=== PATIENT | female | born 1945 | race Caucasian/White ===

== ENCOUNTER 2019-12-21 13:18 | Emergency (ER) | payer MEDICARE, SELFPAY ==
[2019-12-21 13:36] VITALS: BP 130/80; PULSE 70; RESP 18; TEMP 36.6; O2SAT 96
[2019-12-21] MEDS: TETANUS,DIPHTHERIA,AC PERTUSSIS ADULT 0.5 ML (ADACEL) IM (13:52)
--- NOTE | 2019-12-21 13:56 | ED.WOUNDLAC ---
HPI - Wound/Laceration General Chief Complaint: Wound/Laceration Stated Complaint: Cut finger Source: patient Mode of arrival: ambulatory Limitations: no limitations History of Present Illness HPI narrative: well approximated a laceration this 74-year-old female that occurred at home on the patent of her 3rd left finger approximately 2cm in length mildly gaping and well-approximated patient is on aspirin and has trickling of blood from the left 3rd finger. Onset (ago): hour(s) Extremity Location: Left: hand (pad of 3rd finger lac) Place: home Patient tetanus UTD: No Context: accidental Associated symptoms: none Related Data Home Medications Medication Instructions Recorded Confirmed Unable to Obtain Home Medications 12/21/19 12/21/19 Allergies Allergy/AdvReac Type Severity Reaction Status Date / Time codeine AdvReac Nausea Verified 12/21/19 13:42 Review of Systems Review of Systems: All systems reviewed & are unremarkable except as noted in HPI and below PMFSH Past Medical History Medical History HTN (hypertension) Exam Const: General: no acute distress and alert Orientation/consciousness: patient oriented x3 HENMT: Head: normal to inspection Eyes: Conjunctivae: conjunctivae normal Pupils: Equal, round and reactive pupils present Neck: Neck: normal visual inspection Chest: Chest palpation & inspection: normal inspection of the chest Resp: Effort & Inspection: normal respiratory effort Auscultation: clear to auscultation bilaterally Cardio: Rate: regular rate Rhythm: regular rhythm GI: GI Palp: Yes Soft to palpation Skin: Other: 2Cm laceration to the pad of the left 3rd finger well-approximated Neuro: General: patient oriented x3, moves all extremities, no meningeal signs and no focal motor deficits Extrem: General: normal to inspection Psych: Mental Status: mental status grossly normal Course Vital Signs Vital signs: Vital Signs Temperature 36.6 C 12/21/19 13:36 Pulse Rate 70 12/21/19 13:36 Respiratory Rate 18 12/21/19 13:36 Blood Pressure 130/80 12/21/19 13:36 Pulse Oximetry 96 12/21/19 13:36 Temperature 36.6 C 12/21/19 13:36 Pulse Rate 70 12/21/19 13:36 Respiratory Rate 18 12/21/19 13:36 Blood Pressure 130/80 12/21/19 13:36 Pulse Oximetry 96 12/21/19 13:36 Procedures Laceration Laceration 1: Date: 12/21/19 Time: 14:00 Site: other ( finger) Side (If applicable): left Size (cm): 2 Description: linear ====== Skin Level ====== Skin layer closed with: dermabond ====== Subcutaneous Layer ====== ====== Muscle Layer ====== ====== Tendon Layer ====== Critical Care Time Critical Care Time Critical Care Time: No Discharge Plan Discharge Clinical Impression: Laceration Patient Disposition: Home, Self-Care Condition: Stable Instructions: Antibiotic Form, Laceration (ED), Skin Adhesive Care (ED) Additional Instructions: follow-up with primary care physician if symptoms persist or worsen. Prescriptions: No Action Unable to Obtain Home Medications RF: 0 Follow-up/Referrals: Jacky,MD Wilson [Primary Care Provider] - Time of Disposition: 14:02
== END 2019-12-21 14:20 | disposition home or self-care (01) ==
PROVIDERS: Emergency Provider Emergency Medicine; PCP Internal Medicine Infectious Disease
DX: S61.213A Laceration without foreign body of left middle finger without damage to nail, initial encounter (principal); I10 Essential (primary) hypertension; W45.8XXA Other foreign body or object entering through skin, initial encounter
CPT/HCPCS: 12001; 90471; 90715; 99282

== ENCOUNTER 2021-06-15 15:05 | Emergency (ER) | payer MEDICARE, SELFPAY ==
[2021-06-15] VITALS (7 sets, daily range): BP systolic 125–156; BP diastolic 78–110; PULSE 78–97; RESP 18–20; TEMP 36.7–36.9; O2SAT 93–97
--- NOTE | ~2021-06-15 | XR_ITS ---
EXAMINATION: XR chest 1V portable INDICATION: Cough and shortness of breath TECHNIQUE: Portable AP chest at 1629 hours COMPARISON: None available FINDINGS: The lungs are free of acute opacities. There is no pleural effusion or pneumothorax. The ca rdiomediastinal silhouette is normal. IMPRESSION: 1. No acute cardiopulmonary abnormality. Reviewed, dictated and finalized at location A.
--- NOTE | 2021-06-15 15:53 | ECG_ITS ---
Measurements Intervals [place] Rate: 85 P: DE: 0 QRS: 41 QRSD: 90 T: 59 QT: 400 QTc: 476 Interpretive Statements SINUS WITH INTERMITTENT ECTOPIC ATRIAL RHYTHM DELAYED PRECORDIAL R/S TRANSITION BORDERLINE T WAVE ABNORMALITY- ANTERIOR LEADS BASELINE ARTIFACT- II, AVL, AVF ABNORMAL ECG Electronically Signed On 06-15-2021 19:58:36 CDT by Troy Gary D.O.
--- NOTE | 2021-06-15 15:57 | ED.GENADULT ---
HPI - General Adult General Chief complaint: Weakness Stated complaint: headaches,diarrhea,cough,irregular heart rate Source: patient and family Mode of arrival: ambulatory Limitations: no limitations History of Present Illness HPI narrative: Sandie is a 75F with a PMH of HTN, DMII, HLD, and GERD that presented to the ED feeling weak. She started having weakness 5 days ago along with a cough. A few days ago she started having an ache in her left arm. Her symptoms have become progressively worse and today she had an episode of near syncope and nausea. She had no vomiting, CP or syncope. She denies abdominal pain, dysuria and hematuria. She has had a few episodes of watery diarrhea but no blood or melena. She is taking care of a baby with respiratory flu before these symptoms started. Related Data Home Medications Medication Instructions Recorded Confirmed duloxetine 60 mg PO DAILY 06/15/21 06/15/21 empagliflozin [Jardiance] 10 mg PO DAILY 06/15/21 06/15/21 metformin 1,000 mg PO DAILY 06/15/21 06/15/21 metoprolol tartrate 50 mg PO DAILY 06/15/21 06/15/21 omeprazole 20 mg PO DAILY 06/15/21 06/15/21 simvastatin 20 mg PO DAILY 06/15/21 06/15/21 triamterene-hydrochlorothiazid 37.5 tablet PO DAILY 06/15/21 06/15/21 Allergies Allergy/AdvReac Type Severity Reaction Status Date / Time codeine AdvReac Nausea Verified 06/15/21 15:43 Review of Systems Constitutional: Constitutional: Reports fatigue and Reports weakness Eyes: Eyes: Reports no additional eye complaints ENT: Reports system reviewed and no additional complaints, except as documented Cardiovascular: Cardiovascular: Denies chest pain, Denies rapid heart rate, Denies radiating jaw, neck or arm pain and Denies slow heart rate Respiratory: Respiratory: Reports cough Gastrointestinal: Gastrointestinal: Reports as per HPI Genitourinary: Genitourinary: Reports no additional female genitourinary complaints Musculoskeletal: Musculoskeletal: Reports no additional musculoskeletal complaints Integumentary/Breasts: Skin/Breast: Reports system reviewed and no additional complaints, except as docu Neurologic: Reports system reviewed and no additional complaints, except as documented Psychiatric: Psychiatric: Reports no additional psychiatric complaints Endocrine: Endocrine: Reports no additional endocrine complaints Hematologic/Lymphatic: Hematologic/Lymphatic: Reports no additional hematologic/lymphatic complaints Allergic/Immunologic: Allergic/Immunologic: Reports no additional allergic/immunologic complaints [facility] Past Medical History Medical History (Updated 06/15/21 @ 18:11 by Background Daemon) HTN (hypertension) Exam Const: General: no acute distress and alert Orientation/consciousness: patient oriented x3 Limitations: No altered mental status HENMT: Head: normal to inspection Other: atraumatic, normocephalic Eyes: Conjunctivae: conjunctivae normal Pupils: Equal, round and reactive pupils present Neck: Neck: normal visual inspection Chest: Chest palpation & inspection: normal inspection of the chest Resp: Effort & Inspection: normal respiratory effort, not labored, not tachypneic and no use of accessory muscles Other: Slight bibasilar crackles Cardio: Rate: regular rate Rhythm: regular rhythm GI: Inspection: non-distended GI Palp: Yes Soft to palpation, No Tenderness to palpation present (GI) and No Guarding due to palpation present (GI) : General: Yes no CVA tenderness Skin: General skin exam: normal color Rashes: no rashes Neuro: General: patient oriented x3 and moves all extremities Extrem: General: normal to inspection Psych: Appearance: grossly normal Mental Status: mental status grossly normal Affect: normal affect Thought content: Yes Normal thought content present Course Course Emergency Course: Ordered labs, EKG, CXR and orthostatics. Labs were largely unremarkable except an elevated TSH. EKG showed Afib with
[2021-06-15 16:03] LABS: Add Urine Microscopic? YES; Appearance Urine Clear (Clear); Bilirubin Urine Negative (Negative); Blood Urine Negative (Negative); Color Urine Light Yellow (Yellow); Glucose Urine UA 3+ (Negative); Ketones Urine Trace (Negative); Leukocyte Esterase Ur Negative (Negative); Nitrate Urine Negative (Negative); Protein Urine Negative (Negative); Specific Grav Ur 1.025 (1.010-1.020); Urobilinogen Urine 0.2 mg/dL (0.2-1.0); pH Urine 5.5 (5.0-8.0)
[2021-06-15 16:11] LABS: RBC Urine None seen /hpf (0-2); WBC Urine None seen /hpf (0-3)
[2021-06-15 16:12] LABS: Bacteria Urine Trace /hpf; Squamous Epithelial Cell Urine Few /hpf (Few)
[2021-06-15 16:27] LABS: Amphetamine Screen Urine Negative (Negative); Barbiturate Screen Urine Negative (Negative); Benzodiazepines Screen Urine Negative (Negative); Cannabinoid Screen Urine Negative (Negative); Cocaine Screen Urine Negative (Negative); Methadone Screen Urine Negative (Negative); Opiate Screen Urine Negative (Negative); Phencyclidine Screen Urine Negative (Negative)
[2021-06-15 16:31] LABS: Basophils Absolute Auto 0.06 K/mm3 (0.00-0.10); Basophils Percent Auto 0.7 % (0.0-1.0); Eosinophils Absolute Auto 0.37 K/mm3 (0.02-0.50); Eosinophils Percent Auto 4.2 % (1.0-6.0); Hematocrit 43.2 % (35.0-42.0); Hemoglobin 13.4 g/dL (11.7-13.8); Immature Granulocyte Absolute 0.02 K/mm3 (0.00-0.00); Immature Granulocyte Percent A 0.2 % (0.0-0.0); Lymphocytes Absolute Auto 3.02 K/mm3 (1.10-4.50); Lymphocytes Percent Auto 34.6 % (18.0-42.0); Mean Corpuscular Hemoglobin 27.4 pg (27.0-31.0); Mean Corpuscular Volume 88.3 fL (78.0-102.0); Mean Platelet Volume 11.3 fl (9.2-11.8); Monocytes Absolute Auto 0.51 K/mm3 (0.10-0.90); Monocytes Percent Auto 5.8 % (2.0-11.0); Neutrophils Absolute Auto 4.7 K/mm3 (1.7-7.2); Neutrophils Percent Auto 54.5 % (50.0-70.0); Platelet Count Result 274 K/mm3 (150-420); Red Blood Count 4.89 M/mm3 (4.20-5.40); White Blood Count 8.7 K/mm3 (4.8-10.8)
[2021-06-15 16:44] LABS: Prothrombin Time 10.9 Seconds (9.50-12.10)
[2021-06-15 16:57] LABS: Alanine Aminotransferase 43 U/L (14-59); Albumin Level 3.7 g/dL (3.4-5.0); Alkaline Phosphatase 73 U/L (46-116); Anion Gap 15 mmol/L (8-16); Aspartate Amino Transferase 32 U/L (15-37); Bilirubin,Total 0.4 mg/dL (0.00-1.00); Blood Urea Nitrogen 17 mg/dL (7-18); Calcium 8.8 mg/dL (8.5-10.1); Carbon Dioxide 24 mmol/L (21-32); Chloride 101 mmol/L (98-108); Creatine Kinase 74 U/L (26-192); Estimated CRCL calculation 50 ml/min; Estimated Glomerular Filt Rate 56; Glucose 216 mg/dL (70-99); NT Pro B Type Natriuretic Pept 112 pg/mL (0-125); Osmolality Calculated 298 mOsm/kg (285-295); Potassium 3.5 mmol/L (3.5-5.1); Sodium 140 mmol/L (136-145); Total Protein 7.7 g/dL (6.4-8.2)
[2021-06-15 17:10] LABS: Influenza A QL RT-PCR Negative (Negative); Influenza B QL RT-PCR Negative (Negative); RSV RNA, RT-PCR Negative (Negative); SARS-CoV-2 RNA PCR Negative (Negative)
[2021-06-15 17:17] LABS: Magnesium 1.8 mg/dL (1.8-2.4); Troponin I < 4.0 ng/L (0.00-60.4)
--- NOTE | 2021-06-15 17:53 | PC.NURSE ---
Floor and admitting notified pt will be admitted.
--- NOTE | 2021-06-15 17:55 | PC.NURSE ---
Phone report given to VINCENZO Lira
--- NOTE | 2021-06-15 18:50 | PC.NURSE ---
Pt noted to be having runs of v-tach lasting longer than 10 beats and occurring more frequently. Pt symptomatic. Discussed with Dr. Rios that pt needs higher level of care due to increased frequency of arrythmia.
[2021-06-15] MEDS: LORazepam INJ (*CRX) 2 MG/ML VIAL 0.5 MG IV PUSH (19:17)
--- NOTE | 2021-06-15 19:23 | PC.NURSE ---
Report given to VINCENZO Cruz
--- NOTE | 2021-06-15 20:04 | PC.NURSE ---
1957 Dr Peña accepted pt at [facility] facesheet and covid test faxed
== END 2021-06-15 21:32 | disposition short-term general hospital (02) ==
LOC: CHSED 15:08 → CHS2ND 18:11
PROVIDERS: Emergency Provider Family Medicine; PCP Internal Medicine Infectious Disease
DX: I47.2 Ventricular tachycardia (principal); I48.91 Unspecified atrial fibrillation; Z20.822 Contact with and (suspected) exposure to COVID-19; I10 Essential (primary) hypertension
CPT/HCPCS: 36415; 71045; 80053; 80307; 81001; 82550; 83735; 83880; 84443; 84484; 85025; 85610; 87502; 93005; 96374; 99284; 99285; C9803; J2060; U0003; U0005

== ENCOUNTER 2022-07-26 04:26 | Emergency (ER) | payer MEDICARE, SELFPAY ==
[2022-07-26 04:30] VITALS: BP 155/87; PULSE 75; RESP 18; TEMP 36.8; O2SAT 94
[2022-07-26] MEDS: methylPREDNISolone SOD SUCC 125 MG VIAL IM (04:40)
[2022-07-26] MEDS: diphenhydrAMINE HCl INJ 50 MG/ML VIAL 25 MG IM (04:41)
[2022-07-26 05:00] VITALS: BP 124/84; PULSE 74; RESP 20; O2SAT 93
--- NOTE | 2022-07-26 05:12 | ED.ALLEREA ---
HPI - Allergic Reaction General Chief complaint: Allergic Reaction Stated complaint: Allergic Reaction Time Seen by Provider: 07/26/22 05:11 Source: patient Mode of arrival: ambulatory History of Present Illness HPI narrative: 76-year-old female with history of hypertension, diabetes mellitus, dyslipidemia presented to the ER with acute onset -- generalized itching without any rash. She was woken up from a sleep with itching. The patient has not taken any new medication. -- Tongue swelling the patient did not have any throat swelling/shortness of breath /abdominal pain. She has a clear speech. She is hemodynamically stable. MD complaint: allergic reaction Onset (ago): minute(s) ( Started 30 minutes ago.) Exposure: unknown Symptoms: itching Severity: mild Treatment prior to arrival: none Previous Allergic Reaction History: none Related Data Home Medications Medication Instructions Recorded Confirmed duloxetine 60 mg capsule,delayed 60 mg PO DAILY 06/15/21 06/15/21 release empagliflozin 10 mg tablet 10 mg PO DAILY 06/15/21 06/15/21 (Jardiance) metformin 1,000 mg tablet 1,000 mg PO DAILY 06/15/21 06/15/21 metoprolol tartrate 50 mg tablet 50 mg PO DAILY 06/15/21 06/15/21 omeprazole 20 mg capsule,delayed 20 mg PO DAILY 06/15/21 06/15/21 release simvastatin 20 mg tablet 20 mg PO DAILY 06/15/21 06/15/21 triamterene 37.5 37.5 tablet PO DAILY 06/15/21 06/15/21 mg-hydrochlorothiazide 25 mg tablet Allergies Allergy/AdvReac Type Severity Reaction Status Date / Time codeine AdvReac Nausea Verified 06/15/21 15:43 Review of Systems Review of Systems: All systems reviewed & are unremarkable except as noted in HPI and below Constitutional: Constitutional: Reports as per HPI and Reports no additional constitutional complaints Eyes: Eyes: Reports as per HPI and Reports no additional eye complaints ENT: Reports system reviewed and no additional complaints, except as documented and Reports as per HPI Cardiovascular: Cardiovascular: Reports as per HPI and Reports no additional cardiovascular complaints Respiratory: Respiratory: Reports as per HPI and Reports no additional respiratory complaints Gastrointestinal: Gastrointestinal: Reports as per HPI and Reports no additional gastrointestinal complaints Genitourinary: Genitourinary: Reports no additional female genitourinary complaints and Reports as per HPI Musculoskeletal: Musculoskeletal: Reports no additional musculoskeletal complaints and Reports as per HPI Integumentary/Breasts: Skin/Breast: Reports system reviewed and no additional complaints, except as docu and Reports as per HPI Neurologic: Reports system reviewed and no additional complaints, except as documented and Reports as per HPI Psychiatric: Psychiatric: Reports no additional psychiatric complaints and Reports as per HPI Endocrine: Endocrine: Reports no additional endocrine complaints and Reports as per HPI Hematologic/Lymphatic: Hematologic/Lymphatic: Reports no additional hematologic/lymphatic complaints and Reports as per HPI Allergic/Immunologic: Allergic/Immunologic: Reports no additional allergic/immunologic complaints, Reports as per HPI and Reports tongue swelling PMFSH Past Medical History Medical History (Updated 07/26/22 @ 05:19 by Ant Zazueta MD) HTN (hypertension) Exam Const: General: healthy appearing and no acute distress Nutritional Appearance: well nourished Orientation/consciousness: patient oriented x3 Limitations: no limitations HENMT: Head: normal to inspection Ears: external ears normal Face/Nose/Sinus: Normal external nose present Face and sinus: normal facial exam Mouth: Yes Normal oral and palatal mucosa present Throat: posterior oropharynx normal Eyes: Conjunctivae: conjunctivae normal Pupils: Equal, round and reactive pupils present EOM: EOMs intact bilaterally Direct Ophthalmoscopy: no photophobia Neck: Neck: normal visual inspection, no
[2022-07-26 05:45] VITALS: BP 117/76; PULSE 74; RESP 20; O2SAT 95
== END 2022-07-26 05:48 | disposition home or self-care (01) ==
LOC: CHSED 05:19
PROVIDERS: Emergency Provider Internal Medicine Critical Care Medicine; PCP Internal Medicine Infectious Disease
DX: T78.40XA Allergy, unspecified, initial encounter (principal); I10 Essential (primary) hypertension; E11.9 Type 2 diabetes mellitus without complications; E78.5 Hyperlipidemia, unspecified
CPT/HCPCS: 96372; 99284; J1200; J2930

== ENCOUNTER 2023-11-01 18:16 | Observation (INO) | payer MEDICARE, SELFPAY ==
[2023-11-01] VITALS (21 sets, daily range): BP systolic 102–152; BP diastolic 58–99; PULSE 82–147; RESP 18–25; TEMP 37.1; O2SAT 93–98
--- NOTE | ~2023-11-01 | CT_ITS ---
EXAMINATION: CTA chest PE protocol DATE: 11/01/2023 19:50 INDICATION: Shortness of breath. TECHNIQUE: Computed tomography angiography (CTA) of the chest was performed with 100 mL Omnipaque-350 intravenous contrast timed to evaluate the pulmonary arteries. Coronal maximum intensity projection 3D-reconstructions were created by the technologist. Automated exposure control and iterative reconst ruction technique were employed. The dose-length product was 787.49 mGy-cm. COMPARISON: Chest single view 11/01/2023 FINDINGS: There is a 3 mm nodule in left upper lobe, likely benign. A calcified right lung nodule and calcified right hilar lymph nodes are consistent with old granulomatous disease. There is mild atele ctasis bilaterally. No pleural effusion. The heart size is normal. There are coronary artery calcific ations. No pericardial effusion. There is no pulmonary embolus. There is severe thoracic spondylosis. IMPRESSION: 1. No pulmonary embolus. Reviewed, dictated and finalized at location E. ATOR SERVICEMAN IMPRESSION: 1. No pulmonary embolus.
--- NOTE | ~2023-11-01 | XR_ITS ---
EXAMINATION: XR chest 1V portable DATE: 11/01/2023 19:01 INDICATION: Shortness of breath. TECHNIQUE: A single frontal view of the chest was obtained. COMPARISON: Chest single view 06/15/2021 FINDINGS: There is no pneumonia, pleural effusion, or pneumothorax. The heart size is normal. IMPRESSION: 1. No acute cardiopulmonary disease. Reviewed, dictated and finalized at location E. IC LAYER
--- NOTE | 2023-11-01 18:19 | ECG_ITS ---
Measurements Intervals [place] Rate: 146 P: IA: 0 QRS: 6 QRSD: 110 T: 16 QT: 291 QTc: 454 Interpretive Statements ATRIAL FLUTTER/TACHYCARDIA WITH RAPID VENTRICULAR RESPONSE NONSPECIFIC ST & T-WAVE ABNORMALITY- LAT/HIGH LAT LEADS BASELINE WANDER- V3-V6 ABNORMAL ECG COMPARED TO ECG 06/15/2021 16:03:15 ATRIAL FLUTTER/TACHYCARDIA NOW PRESENT Electronically Signed On 11-01-2023 18:40:58 HUMAN RESOURCES ASSOCIATE by Troy Gary D.O.
[2023-11-01] MEDS: dilTIAZem HCl INJ 25 MG/5 ML VIAL 10 MG IV PUSH (18:45)
[2023-11-01 18:54] LABS: Basophils Absolute Auto 0.08 K/mm3 (0.00-0.10); Basophils Percent Auto 0.9 % (0.0-1.0); Eosinophils Absolute Auto 0.36 K/mm3 (0.02-0.50); Eosinophils Percent Auto 4.2 % (1.0-6.0); Hematocrit 43.8 % (35.0-42.0); Hemoglobin 12.7 g/dL (11.7-13.8); Immature Granulocyte Absolute 0.02 K/mm3 (0.00-0.00); Immature Granulocyte Percent A 0.2 % (0.0-0.0); Lymphocytes Absolute Auto 3.01 K/mm3 (1.10-4.50); Lymphocytes Percent Auto 34.8 % (18.0-42.0); Mean Corpuscular Volume 82.8 fL (78.0-102.0); Mean Platelet Volume 11.2 fl (9.2-11.8); Monocytes Absolute Auto 0.56 K/mm3 (0.10-0.90); Monocytes Percent Auto 6.5 % (2.0-11.0); Neutrophils Absolute Auto 4.6 K/mm3 (1.7-7.2); Neutrophils Percent Auto 53.4 % (50.0-70.0); Platelet Count Result 274 K/mm3 (150-420); Red Blood Count 5.29 M/mm3 (4.20-5.40); Red Cell Distribution Width 18.4 % (11.6-14.4); White Blood Count 8.7 K/mm3 (4.8-10.8)
[2023-11-01 19:08] LABS: Appearance Urine Clear (Clear); Bilirubin Urine Negative (Negative); Blood Urine Negative (Negative); Color Urine Light Yellow (Yellow); Glucose Urine UA 3+ (Negative); Ketones Urine Trace (Negative); Leukocyte Esterase Ur Negative LEU/UL (Negative); Nitrate Urine Negative (Negative); Protein Urine Negative (Negative); Urobilinogen Urine 0.2 mg/dL (0.2-1.0)
--- NOTE | 2023-11-01 19:08 | PC.NURSE ---
1908: Assumed care of pt. Pt ambulatory to restroom with steady gait. Urine obtained and sent to lab. Updated pt/family. Family at bedside.
[2023-11-01 19:09] LABS: INR 0.9; Partial Thromboplastin Time 25.9 SEC (23.90-30.70); Prothrombin Time 10.3 Seconds (9.50-12.10)
[2023-11-01 19:10] LABS: D Dimer 0.82 mg/L (0.19-0.50)
[2023-11-01 19:15] LABS: Add Urine Microscopic? YES; RBC Urine 0-2 /hpf (0-2); Squamous Epithelial Cell Urine None seen /hpf (Few); WBC Urine 0-3 /hpf (0-3)
[2023-11-01 19:16] LABS: Bacteria Urine None seen /hpf
[2023-11-01 19:18] LABS: Lactic Acid Reflex 5.2 mmol/L (0.4-2.0)
[2023-11-01 19:19] LABS: Alanine Aminotransferase 66 U/L (14-59); Albumin Level 3.8 g/dL (3.4-5.0); Alkaline Phosphatase 86 U/L (46-116); Anion Gap 16 mmol/L (8-16); Aspartate Amino Transferase 48 U/L (15-37); Bilirubin,Total 0.3 mg/dL (0.00-1.00); Blood Urea Nitrogen 12 mg/dL (7-18); CRP 0.5 mg/dL (0.0-0.9); Calcium 8.8 mg/dL (8.5-10.1); Carbon Dioxide 22 mmol/L (21-32); Chloride 102 mmol/L (98-108); Estimated CRCL calculation 52 ml/min; Estimated Glomerular Filt Rate 59; Glucose 311 mg/dL (70-99); Magnesium 1.9 mg/dL (1.8-2.4); NT Pro B Type Natriuretic Pept 182 pg/mL (0-450); Osmolality Calculated 301 mOsm/kg (285-295); Potassium 3.8 mmol/L (3.5-5.1); Sodium 140 mmol/L (136-145); Total Protein 7.7 g/dL (6.4-8.2); Troponin I 5.3 ng/L (0.00-60.4)
[2023-11-01] MEDS: SODIUM CHLORIDE 0.9% IV 1,000 ML 999 ML IV CONT (19:49)
[2023-11-01 19:50] LABS: Thyroid Stimulating Hormone 1.61 uIU/mL (0.36-3.74)
[2023-11-01] MEDS: dilTIAZem 100 MG/100 ML 100 MG/100 ML BAG IV CONT (19:50)
--- NOTE | 2023-11-01 19:58 | ED.GENADULT ---
HPI - General Adult General Chief complaint: Chest Pain Stated complaint: rapid heart rate Time Seen by Provider: 11/01/23 18:23 Source: patient Mode of arrival: ambulatory Limitations: no limitations History of Present Illness HPI narrative: This is a 78 year female that presents with palpitations, had noticed that she had increased heart rate this started earlier this afternoon patient has mild dyspnea with no chest pain no chest pressure no abdominal pain no fever chills. Initially heart rate was in the 140s, there is no nausea vomiting no diarrhea constipation no dysuria or flank pain. Patient has history of diabetes, hypertension hyperlipidemia and patient states that her diabetes has been relatively well controlled with an A1c of 7.2. Onset (ago): hour(s) Severity: moderate Related Data Home Medications Medication Instructions Recorded Confirmed duloxetine 60 mg capsule,delayed 60 mg PO DAILY 06/15/21 11/01/23 release empagliflozin 10 mg tablet 10 mg PO DAILY 06/15/21 11/01/23 (Jardiance) metformin 1,000 mg tablet 1,000 mg PO DAILY 06/15/21 11/01/23 metoprolol tartrate 50 mg tablet 50 mg PO DAILY 06/15/21 11/01/23 omeprazole 20 mg capsule,delayed 20 mg PO DAILY 06/15/21 11/01/23 release simvastatin 20 mg tablet 20 mg PO DAILY 06/15/21 11/01/23 triamterene 37.5 37.5 tablet PO DAILY 06/15/21 11/01/23 mg-hydrochlorothiazide 25 mg tablet Allergies Allergy/AdvReac Type Severity Reaction Status Date / Time codeine AdvReac Nausea Verified 11/01/23 19:01 Review of Systems Review of Systems: All systems reviewed & are unremarkable except as noted in HPI and below PMFSH Past Medical History Medical History (Updated 11/02/23 @ 02:23 by Dionicio Finley MD) HTN (hypertension) Exam Const: General: healthy appearing and no acute distress Nutritional Appearance: well nourished and obese Orientation/consciousness: patient oriented x3 Limitations: no limitations HENMT: Head: normal to inspection Eyes: Conjunctivae: conjunctivae normal Neck: Neck: normal visual inspection, no lymphadenopathy and no meningeal signs Chest: Chest palpation & inspection: normal inspection of the chest Resp: Effort & Inspection: normal respiratory effort Auscultation: clear to auscultation bilaterally Cardio: Rate: tachycardic Rhythm: abnormal rhythm GI: GI Palp: Yes Soft to palpation Auscultation: normal bowel sounds : General: Yes bladder normal to palpation Back/Spine/Pelvis: Back: no CVA tenderness Skin: General skin exam: normal color Rashes: no rashes Wounds: no wounds Neuro: General: patient oriented x3, moves all extremities, no meningeal signs and no focal motor deficits Psych: Mental Status: mental status grossly normal Affect: normal affect Course Course Emergency Course: Patient with a history of diabetes hypertension hyperlipidemia presents with tachycardia and did receive a bolus of Cardizem and currently on Cardizem drip which has caused her heart rate to improve blood pressure stable patient had elevated D-dimer and CTA was performed which showed no acute pulmonary embolism. Labs performed showed that white count is 8.7 with an H&H of 12 and 43 CMP was within normal limits except for glucose was 311 AST ALT of 48 and 66 respectively with a lactic acid of 5.2 chest x-ray shows no acute cardiopulmonary abnormalities EKG was performed and reviewed which showed a flutter rate of 145 when patient 1st presented. Patient also received a bolus of normal saline and her BNP was within normal range. patient did well cardioverted and current heart rate is 68 to 72 obtain another EKG which shows normal sinus rhythm will admit to start on hospital floor to hospitalist to monitor and when stable can discharge with outpatient cardiology referral. Vital Signs Vital signs: Vital Signs Temperature 37.1 C 11/01/23 18:20 Pulse Rate 147 H 11/01/23 18:20 Respiratory Rate 25 H 11/01/23 18:20 Bl
[2023-11-01 21:56] LABS: Reflex Lactic Acid Yes or No Add Lactic
[2023-11-01 22:33] LABS: Lactic Acid 3.4 mmol/L (0.4-2.0)
[2023-11-02] VITALS (14 sets, daily range): BP systolic 105–122; BP diastolic 54–77; PULSE 66–93; RESP 16–20; TEMP 36.1–37.1; O2SAT 93–96; BMI 41.0
--- NOTE | 2023-11-02 01:24 | ECG_ITS ---
Measurements Intervals [place] Rate: 70 P: -35 WI: 178 QRS: 2 QRSD: 83 T: 44 QT: 397 QTc: 430 Interpretive Statements SINUS RHYTHM ATRIAL PREMATURE COMPLEX BASELINE WANDER- V2 BORDERLINE ECG COMPARED TO ECG 11/01/2023 18:28:01 SINUS RHYTHM NOW PRESENT Electronically Signed On 11-02-2023 6:41:50 PHARMACIST HELPER by Troy Gary D.O.
--- NOTE | 2023-11-02 01:55 | PC.NURSE ---
Verbal orders from Dr. Finley to stop diltiazem drip and give a one time dose of 120mg diltiazem PO now
[2023-11-02] MEDS: dilTIAZem HCL 30 MG TABLET 120 MG PO (02:17)
--- NOTE | 2023-11-02 03:18 | ADMGEN ---
This patient, Sandie Roche, was admitted to 2nd Floor Room 204-2. Patient oriented to hospital policies and general routines including ID bracelet, bed and alarms, visiting hours, pain management, procedures, bathroom and other care routines, personal items, smoking policy, room service/diet, and visiting hours. Information on how to activate the Rapid Response Team has been discussed. Patient encouraged to report perceived risks to care and to ask questions if they do not understand what they are told or what they should do.
--- NOTE | 2023-11-02 03:48 | PC.NURSE ---
Pt states she sees Public Opinion Survey Taker Dr. Sanchez at [facility].
[2023-11-02] MEDS: SODIUM CHLORIDE 0.9% IV 1,000 ML 100 ML IV CONT (05:17)
[2023-11-02 05:26] LABS: Basophils Absolute Auto 0.06 K/mm3 (0.00-0.10); Basophils Percent Auto 0.7 % (0.0-1.0); Eosinophils Absolute Auto 0.34 K/mm3 (0.02-0.50); Eosinophils Percent Auto 3.9 % (1.0-6.0); Hematocrit 39.5 % (35.0-42.0); Hemoglobin 11.2 g/dL (11.7-13.8); Immature Granulocyte Absolute 0.03 K/mm3 (0.00-0.00); Immature Granulocyte Percent A 0.3 % (0.0-0.0); Lymphocytes Absolute Auto 3.71 K/mm3 (1.10-4.50); Lymphocytes Percent Auto 42.3 % (18.0-42.0); Mean Corpuscular HGB Conc 28.4 g/dL (32.0-36.0); Mean Corpuscular Hemoglobin 23.7 pg (27.0-31.0); Mean Corpuscular Volume 83.5 fL (78.0-102.0); Mean Platelet Volume 10.8 fl (9.2-11.8); Monocytes Absolute Auto 0.68 K/mm3 (0.10-0.90); Monocytes Percent Auto 7.7 % (2.0-11.0); Neutrophils Percent Auto 45.1 % (50.0-70.0); Platelet Count Result 232 K/mm3 (150-420); Red Blood Count 4.73 M/mm3 (4.20-5.40); White Blood Count 8.8 K/mm3 (4.8-10.8)
[2023-11-02 05:50] LABS: Lactic Acid Reflex 3.2 mmol/L (0.4-2.0)
[2023-11-02 05:54] LABS: Alanine Aminotransferase 50 U/L (14-59); Albumin Level 3.3 g/dL (3.4-5.0); Alkaline Phosphatase 71 U/L (46-116); Anion Gap 10 mmol/L (8-16); Aspartate Amino Transferase 33 U/L (15-37); Bilirubin,Total 0.4 mg/dL (0.00-1.00); Blood Urea Nitrogen 9 mg/dL (7-18); Calcium 8.4 mg/dL (8.5-10.1); Carbon Dioxide 27 mmol/L (21-32); Chloride 105 mmol/L (98-108); Estimated CRCL calculation 58 ml/min; Estimated Glomerular Filt Rate > 60; Glucose 192 mg/dL (70-99); NT Pro B Type Natriuretic Pept 549 pg/mL (0-450); Osmolality Calculated 297 mOsm/kg (285-295); Potassium 3.9 mmol/L (3.5-5.1); Sodium 142 mmol/L (136-145); Total Protein 6.9 g/dL (6.4-8.2); Troponin I 19.8 ng/L (0.00-60.4)
--- NOTE | 2023-11-02 06:45 | PM.SD2 ---
Same Day Admit/Disch: HPI History of Present Illness Chief complaint: A FLUTTER WITH RVR Narrative: Sandie Roche is a 78 year old female with a past medical history of hypertension, diabetes, dyslipidemia who presented to the ER overnight with complaints of heart palpitations and mild dyspnea. When she presented her heart rate was in the 140s and EKG showed atrial flutter. She received a bolus with Cardizem and started on a drip. She also received some IV fluids. While in the ER she converted back to normal sinus rhythm heart rate in the 60s. Her Cardizem drip was stopped and she was given a dose of oral diltiazem. She was admitted to the floor overnight by the ER physician on telemetry for further monitoring. This morning she remains sinus rhythm heart rate in the 60s. Her blood pressures are stable. She had lactic of 5.2 initially in the ER which has since come down to 3.2 after IV fluid hydration. She reports that she had a headache this morning but that seems to have gone away now that she is eating. She denies headache, dizziness, chest pain, shortness a breath, abdominal pain, nausea, vomiting. She is independent with ambulation. She sees a computer lab assistant at [place], Dr. Sanchez whom I have asked her to follow up with. She also reports that she has a 1:00 a.m. appointment today with her primary care doctor which I have asked her to attend. I will discharge her home with oral diltiazem. [facility] Past Medical History Medical History HTN (hypertension) Social History Social History Smoking status: Never smoker Second hand tobacco smoke exposure: No Alcohol intake: never Substance use: never Substance use type: does not use Do You Feel Safe in your Home?: Yes Lack of Transportation: No Lack of Food: Never True Current Housing: I Have Housing Concerned About Future Housing: No Difficulty Paying Gas/Electric Bills: No Difficulty Paying for Meds: No Currently Unemployed: No Education: Trade/Vocational Certificate Difficulty w/ Childcare or Family Care: No Spiritual care concerns: No Same Day Admit/Disch: Med Pre-admit Medications Home Medications Medication Instructions Recorded Confirmed Type duloxetine 60 mg capsule,delayed 60 mg PO DAILY 06/15/21 11/01/23 History release empagliflozin 10 mg tablet 10 mg PO DAILY 06/15/21 11/01/23 History (Jardiance) metformin 1,000 mg tablet 1,000 mg PO DAILY 06/15/21 11/01/23 History metoprolol tartrate 50 mg tablet 50 mg PO DAILY 06/15/21 11/01/23 History omeprazole 20 mg capsule,delayed 20 mg PO DAILY 06/15/21 11/01/23 History release simvastatin 20 mg tablet 20 mg PO DAILY 06/15/21 11/01/23 History triamterene 37.5 37.5 tablet PO DAILY 06/15/21 11/01/23 History mg-hydrochlorothiazide 25 mg tablet Review of Systems Review of Systems All systems reviewed & are unremarkable except as noted in HPI and below Exam Narrative: General: well appearing, well developed, well nourished, appears stated age. HEENT: normocephalic, atraumatic. Mucous membranes moist. EOMI, PERRLA, bilateral sclera anicteric, no conjunctival injection. Neck supple without JVD, lymphadenopathy, or bruit. Respiratory: clear to ascultation bilaterally. No rales/rhonic/wheezes. Cardiovascular: Regular rate and rhythm, normal S1-S2 upon ascultation. No murmurs, rubs, or clicks. PMI is nondisplaced, capillary re-fill less than 3 second. Abdomen: Soft, round, no pulsatile masses, non-distended and non-tender. No rebound, no guarding. No CVA tenderness, no hepatosplenomegaly. Bowel sounds present to all four quadrants. No high pitch or tinkling sounds, resonant to percussion. Extremities: No cyanosis, clubbing, or edema present. Pulses are palpable 2/2. Active ROM to all four extremities. Neuro: Alert and orientated x 4. PERRLA. Cranial nerves 2-12 intact withou
--- NOTE | 2023-11-05 10:45 | PC.NURSE ---
discharge call back complete, doing well, so much better, saw PMD and setting her up with cardiology, no questions regarding dc instructions
== END 2023-11-02 09:40 | disposition home or self-care (01) ==
LOC: CHSED 11-02 02:23 → CHS2ND 11-02 07:56
PROVIDERS: Admitting Provider Internal Medicine; Emergency Provider Emergency Medicine; PCP Internal Medicine Infectious Disease; Visit Provider Internal Medicine
DX: I48.92 Unspecified atrial flutter (principal); E11.9 Type 2 diabetes mellitus without complications; I10 Essential (primary) hypertension; E78.5 Hyperlipidemia, unspecified; Z79.84 Long term (current) use of oral hypoglycemic drugs; Z79.899 Other long term (current) drug therapy
CPT/HCPCS: 36415; 71045; 71275; 80053; 81001; 83605; 83735; 83880; 84443; 84484; 85025; 85380; 85610; 85730; 86140; 93005; 96361; 96365; 96366; 96376; 99285; A9270; G0378; J7030; Q9967

== ENCOUNTER 2023-11-16 23:39 | Emergency (ER) | payer MEDICARE, SELFPAY ==
--- NOTE | 2023-11-16 23:41 | ECG_ITS ---
Measurements Intervals [place] Rate: 90 P: AR: 0 QRS: 8 QRSD: 87 T: 50 QT: 366 QTc: 449 Interpretive Statements SINUS OR ECTOPIC ATRIAL RHYTHM ATRIAL PREMATURE COMPLEXES BASELINE WANDER- II, III, V4 BORDERLINE ECG COMPARED TO ECG 11/02/2023 02:22:19 NO SIGNIFICANT CHANGES Electronically Signed On 11-17-2023 7:33:25 CDT by Troy Gary D.O.
[2023-11-16 23:45] VITALS: BP 142/76; PULSE 91; RESP 18; TEMP 36.8; O2SAT 98
[2023-11-17 00:08] LABS: Basophils Absolute Auto 0.09 K/mm3 (0.00-0.10); Basophils Percent Auto 0.9 % (0.0-1.0); Eosinophils Percent Auto 3.9 % (1.0-6.0); Hematocrit 43.9 % (35.0-42.0); Hemoglobin 12.9 g/dL (11.7-13.8); Immature Granulocyte Absolute 0.02 K/mm3 (0.00-0.00); Immature Granulocyte Percent A 0.2 % (0.0-0.0); Lymphocytes Percent Auto 44.9 % (18.0-42.0); Mean Corpuscular HGB Conc 29.4 g/dL (32-36); Mean Corpuscular Hemoglobin 24.3 pg (27.0-31.0); Mean Corpuscular Volume 82.8 fL (78.0-102.0); Monocytes Absolute Auto 0.72 K/mm3 (0.10-0.90); Neutrophils Absolute Auto 4.41 K/mm3 (1.70-7.20); Neutrophils Percent Auto 43.1 % (50.0-70.0); Platelet Count Result 298 K/mm3 (150-420); Red Cell Distribution Width 18.3 % (11.6-14.4); White Blood Count 10.2 K/mm3 (4.8-10.8)
[2023-11-17 00:22] VITALS: BP 142/76; PULSE 96; RESP 18; O2SAT 94
[2023-11-17 00:28] LABS: Anion Gap 16 mmol/L (8-16); Carbon Dioxide 25 mmol/L (21-32); Chloride 99 mmol/L (98-108); Potassium 4.1 mmol/L (3.5-5.1); Sodium 140 mmol/L (136-145)
[2023-11-17 00:29] LABS: Alkaline Phosphatase 108 U/L (46-116); Bilirubin,Total 0.4 mg/dL (0.00-1.00); Blood Urea Nitrogen 15 mg/dL (7-18); Calcium 8.9 mg/dL (8.5-10.1); Estimated CRCL calculation 53 ml/min; Estimated Glomerular Filt Rate > 60; Glucose 221 mg/dL (70-99); Magnesium 1.9 mg/dL (1.8-2.4); NT Pro B Type Natriuretic Pept 48 pg/mL (0-450); Osmolality Calculated 297 mOsm/kg (285-295); Total Protein 7.9 g/dL (6.4-8.2); Troponin I 4.1 ng/L (0.00-60.4)
[2023-11-17 00:32] LABS: Alanine Aminotransferase 89 U/L (14-59); Aspartate Amino Transferase 68 U/L (15-37)
--- NOTE | 2023-11-17 00:33 | ED.GENADULT ---
HPI - General Adult General Chief complaint: Unspecified Stated complaint: heart palpitations Time Seen by Provider: 11/16/23 23:50 History of Present Illness HPI narrative: The patient is a 78-year-old woman with history of atrial fibrillation, paroxysmal, admitted here on 11/02/2023 for rapid ventricular response. She converted to sinus rhythm on diltiazem infusion. she subsequently was discharged the next day, 11/03/2023 and saw her primary care provider. She is currently on diltiazem 60 mg p.o. b.i.d. and Lopressor 50 mg p.o. b.i.d.. She is on aspirin 81 mg daily. She is not on any anticoagulants. She is due to see her artificial candy maker on 12/29/2023. Other comorbidities include hypertension diabetes GERD and hyperlipidemia. She woke up this morning sign leave from sleep, noticing that her heart rate has been skipping a beat, with palpitations. She is worried that she was in recurrent atrial fibrillation. She presents for evaluation. She denies any nausea or vomiting or chest pain or discomfort or tightness. No headache. No diaphoresis. No abdominal pain. No urinary symptoms. No URI symptoms. No other complaints. No dizziness or near syncope or syncope. Related Data Home Medications Medication Instructions Recorded Confirmed duloxetine 60 mg capsule,delayed 60 mg PO DAILY 06/15/21 11/01/23 release empagliflozin 10 mg tablet 10 mg PO DAILY 06/15/21 11/01/23 (Jardiance) metformin 1,000 mg tablet 1,000 mg PO DAILY 06/15/21 11/01/23 metoprolol tartrate 50 mg tablet 50 mg PO DAILY 06/15/21 11/01/23 omeprazole 20 mg capsule,delayed 20 mg PO DAILY 06/15/21 11/01/23 release simvastatin 20 mg tablet 20 mg PO DAILY 06/15/21 11/01/23 triamterene 37.5 37.5 tablet PO DAILY 06/15/21 11/01/23 mg-hydrochlorothiazide 25 mg tablet Allergies Allergy/AdvReac Type Severity Reaction Status Date / Time codeine AdvReac Nausea Verified 11/16/23 23:56 Review of Systems Review of Systems: All systems reviewed & are unremarkable except as noted in HPI and below Constitutional: Constitutional: Denies chills, Denies excessive sweating, Denies fatigue, Denies fever(s), Denies headache(s) and Denies weakness Eyes: Eyes: Denies change in vision and Denies photophobia ENT: Denies dysphagia, Denies dizziness, Denies headache(s), Denies lip swelling, Denies nasal congestion, Denies sore throat and Denies tongue swelling Cardiovascular: Cardiovascular: Denies chest pain, Denies syncope, Denies rapid heart rate, Denies dyspnea and Reports other ( Palpitations) Respiratory: Respiratory: Denies cough, Denies dyspnea and Denies wheezing Gastrointestinal: Gastrointestinal: Denies abdominal pain, Denies constipation, Denies dysphagia, Denies diarrhea, Denies nausea and Denies vomiting Genitourinary: Genitourinary: Denies hematuria, Denies urinary frequency, Denies dysuria and Denies urinary urgency Musculoskeletal: Musculoskeletal: Denies back pain, Denies myalgias, Denies arthralgias, Denies joint swelling and Denies numbness Integumentary/Breasts: Skin/Breast: Denies pruritus, Denies erythema and Denies rash Neurologic: Denies confusion, Denies dizziness, Denies syncope, Denies headache(s), Denies focal weakness, Denies numbness and Denies weakness Psychiatric: Psychiatric: Denies anxiety and Denies confusion Endocrine: Endocrine: Denies excessive sweating and Denies fatigue Hematologic/Lymphatic: Hematologic/Lymphatic: Denies easy bleeding and Denies easy bruising Allergic/Immunologic: Allergic/Immunologic: Denies lip swelling, Denies tongue swelling and Denies wheezing PMFSH Past Medical History Medical History (Updated 11/17/23 @ 00:47 by Stephen Castillo MD) HTN (hypertension) Social History Social History Smoking status: Never smoker Second hand tobacco smoke exposure: No Alcohol intake: never Substance use: never Substance use type: does not use Do You
[2023-11-17 00:50] VITALS: BP 134/79; PULSE 98; RESP 18; O2SAT 94
== END 2023-11-17 01:12 | disposition home or self-care (01) ==
PROVIDERS: Emergency Provider Emergency Medicine; PCP Internal Medicine Infectious Disease
DX: R00.2 Palpitations (principal); I48.0 Paroxysmal atrial fibrillation; I10 Essential (primary) hypertension; E11.9 Type 2 diabetes mellitus without complications; K21.9 Gastro-esophageal reflux disease without esophagitis; E78.5 Hyperlipidemia, unspecified
CPT/HCPCS: 80053; 83735; 83880; 84484; 85025; 93005; 99284

== ENCOUNTER 2024-11-22 16:36 | Emergency (ER) | payer MEDICARE, SELFPAY ==
--- NOTE | ~2024-11-22 | XR_ITS ---
HISTORY: bursitis COMPARISON: None TECHNIQUE: 2 views of the left elbow were performed. FINDINGS: Well-corticated osseous density identified adjacent to the proximal ulna, possibly representing prior injury. No acute displaced fracture is appreciated. No elevation of the anterior or posterior fat pads are identified to suggest a supracondylar fracture . Increased density within the genu of the soft tissues of the left elbow, consistent with patient's hi story. Bone mineralization is age-appropriate. IMPRESSION: As above. Reviewed, dictated and finalized at location A. IMPRESSION: As above.
--- NOTE | ~2024-11-22 | XR_ITS ---
CHEST RADIOGRAPH CLINICAL HISTORY: weakness . COMPARISON: 11/01/2023 TECHNIQUE: Single portable view of the chest. FINDINGS The cardiomediastinal silhouette is unremarkable. Elevation of the right hemidiaphragm with adjacent compressive atelectasis, unchanged from prior. The remainder of the lungs are clear. IMPRESSION: No focal infiltrate or effusion. Reviewed, dictated and finalized at location A.
--- OUTSIDE RECORDS SUMMARY | 2024-11-22 16:39 | XMS_ITS | Encounter Summary ---
Author Organization [facility] Healthcare Address [address] [place] [address] Care Team Providers Care Test Preparer Name Role Phone Wilson Rico MD Primary Care Provider [phone]- [phone] Encounter Details Date Type Department Care Team (Late st Contact Info) Description 03/24/2024 Orders Only [facility] Medical Group [facility] [address] [place] [phone] Scanning, Provider Social History Tobacco Use Types Packs/Day Years Used Date Smoking Tobacco: Former Cigarettes Q uit: 1972 Smokeless Tobacco: Never Alcohol Use Standard Drinks/Week Comments Never 0 (1 standard drink = 0.6 oz pur e alcohol) AUDIT-C Answer Date Recorded Frequency of Alcohol Consumption Not on file 05/08/2022 Q2: How many drinks containi ng alcohol do you have on a typical day when you are drinking? Patient does not drink Frequency of Binge Drinking Not on file 04/27 PHQ-2 Answer Date Recorded PHQ-2 Total Score (If total score is 3 or more points, staff should administer the PHQ-9) 0 05/08/2022 Personal Safety Answer Date Recorded Have you ever been in or are you currently in a harmful physical or emotional relationship or is someone making you feel afraid or unsafe? 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 Gender Identity Not on file Sexual Orientation Not on file documented as of this encounter Plan of Treatment Not on file documented as of this encounter Procedures Procedure Name Priority Date/Time Associated Diagnosis Comments PROCEDURE - RESULT 03/24/2024 documented in this encounter Results * PROCEDURE - RESULT (03/24/2024) us Provider Scanning Final Result documented in this encounter Visit Diagnoses Not on filedocumented in this encounter Care Teams Test Preparer Relationship Specialty Start Date End Date Wilson Rico MD [address] [place] [id number] PCP - General 11/24/16 documented as of this encounter
--- OUTSIDE RECORDS SUMMARY | 2024-11-22 16:39 | XMS_ITS | Encounter Summary ---
Author Organization [facility] Healthcare Address [address] [place] [address] Care Team Providers Care Financial Aid Director Name Role Phone Wilson Rico MD Primary Care Provider [phone]- [phone] Reason for Visit * Reason Comments Elbow Pain Pt is here today wit h left elbow pains. Onset is this morning, OTC nothing. Pt is also complaining about being nauseous and having diarrhea for the last three days. Only changes are being on ozempic for the last 4 weeks. Encounter Details Date Type Department Care Team (Late st Contact Info) Description 11/22/2024 3:15 PM CDT Office Visit [facility] Medical Group [facility] [address] [place] [id number] Cynthia Ellington, MASK INSPECTOR [address] [place] [address] Olecranon bursitis of left elbow (Primary Dx); Nausea Social History Tobacco Use Types Packs/Day Years [...] points, staff should administer the PHQ-9) 0 04/07/2024 Personal Safety Answer Date Recorded Have you ever been in or are you currently in a harmful physical or emotional relationship or is someone making you feel afraid or unsafe? 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 Gender Identity Not on file Sexual Orientation Not on file documented as of this encounter Last Filed Vital Signs Vital Sign Reading Time Taken Comments Blood Pressure 128/82 11/22/2024 3:09 PM CDT Pulse 86 11/22/2024 3:09 PM CDT Temperature 36.6 C (97.9 F) 11/22/2024 3:09 PM CDT Respiratory Rate 18 11/22/2024 3:09 PM CDT Oxygen Saturation 98% 11/22/2024 3:09 PM CDT Inhaled Oxygen Concentration - - Weight 97.5 kg (215 lb) 11/22/2024 3:09 PM CDT Height 160 cm (5' 3 ) 11/22/2024 3:09 PM CDT Body Mass Index 38.09 11/22/2024 3:09 PM CDT documented in this encounter Patient Instructions * Patient Instructions* Cynthia Ellington NP - 11/22/2024 3:15 PM CDT Go to ER for further evaluation to rule out infection documented in this encounter Plan of Treatment Not on file documented as of this encounter Visit Diagnoses Diagnosis Olecranon bursitis of left elbow- Primary Nausea Nausea alone documented in this encounter Administered Medications Inactive Administered Medications - up to 3 most recent administrations Medication Order MAR Action Action Date Dose Rate Site ondansetron ODT (ZOFRAN-ODT) disintegrating tablet 4 mg 4 mg, oral, Once, On 11/22/24 at 1630, For 1 dose, If administering by mouth, place tablet on tongue and allow to dissolve.Indications:Nausea Given 11/22/2024 3:56 PM CDT 4 mg documented in this encounter Orders Medications Ordered That Curry ht Not Have Been Administered Count Last Ordered Date First Ordered Date ondansetron ODT (ZOFRAN-ODT) disintegrating tablet 8 mg 1 11/22/2024 documented in this encounter Care Teams Financial Aid Director Relationship Specialty Start Date End Date Wilson Rico MD [address] [place] [id number] PCP - General 11/24/16 documented as of this encounter
--- OUTSIDE RECORDS SUMMARY | 2024-11-22 16:39 | XMS_ITS | Encounter Summary ---
[facility] [address] [place] [address] Phone Care Team Providers Care Pattern Wheel Maker Name Role Phone Wilson Rico MD Primary Care Provider [phone]- [phone] Encounter Details Date Type Department Care Team (Late st Contact Info) Description 08/08/2021 Orders Only [facility] [address] [place] [address] Scanning, Provider Social History Tobacco Use Types Packs/Day Years Used Date Smoking Tobacco: Former Cigarettes Q uit: 1972 Smokeless Tobacco: Never Alcohol Use Standard Drinks/Week Comments Never 0 (1 standard drink = 0.6 oz pur e alcohol) AUDIT-C Answer Date Recorded Q1: How often do you have a drink containing alc ohol? 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 Gender Identity Not on file Sexual Orientation Not on file documented as of this encounter Plan of Treatment Not on file documented as of this encounter Procedures Procedure Name Priority Date/Time Associated Diagnosis Comments CARDIOLOGY DOCUMENT SCAN 08/08/2021 documented in this encounter Results * SCAN - CARDIOLOGY (08/08/2021) Anatomical Region Laterality Modality Other us Provider Scanning CV CARDIAC SERVICES PROCEDURES Final Result documented in this encounter Visit Diagnoses Not on filedocumented in this encounter Additional Health Concerns Infection Onset Date Last Indicated Resolved Time COVID: Suspected 08/10/2023 08/10/2023 08/10/2023 2:31 PM DOLL EYE SETTER documented as of this encounter Care Teams Pattern Wheel Maker Relationship Specialty Start Date End Date Wilson Rico MD [address] [place] [id number] PCP - General 11/24/16 documented as of this encounter
--- OUTSIDE RECORDS SUMMARY | 2024-11-22 16:39 | XMS_ITS | Encounter Summary ---
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 Gender Identity Not on file Sexual Orientation Not on file documented as of this encounter Functional Status documented as of this encounter Plan of Treatment Not on file documented as of this encounter Procedures Procedure Name Priority Date/Time Associated Diagnosis Comments SCAN - RADIOLOGY/IMAGING 06/15/2021 documented in this encounter Results * SCAN - RADIOLOGY/IMAGING (06/15/2021) Anatomical Region Laterality Modality Other us Provider Scanning Final Result documented in this encounter Visit Diagnoses Not on filedocumented in this encounter Additional Health Concerns Infection Onset Date Last Indicated Resolved Time COVID: Suspected 08/10/2023 08/10/2023 08/10/2023 2:31 PM QUANTITATIVE MANAGER documented as of this encounter Care Teams Vp Integration Relationship Specialty Start Date End Date Wilson Rico MD [address] [place] [id number] PCP - General 11/24/16 documented as of this encounter
--- OUTSIDE RECORDS SUMMARY | 2024-11-22 16:40 | XMS_ITS | Clinical Summary ---
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 Name Role Phone JackyWilson Josr HARVEY Primary Care Provider [phone] Allergies Active Allergy Reactions Criticality Noted Date Comments Codeine Nausea only Low Lisinopril Cough Low Medications cyanocobalamin (vitamin B-12) 1,000 mcg tablet take 1 by Oral route one daily 0 05/23/20 12 Active Additional Information Patient taking differently:1,000 mcgoral Daily, Reported on 11/22/2024 cholecalciferol (VITAMIN D3) 1,000 unit capsule take 1 Tablet by Oral route once 0 0 02/03/20 15 Active Additional Information Patient taking differently: oral Daily, Reported on 11/22/2024 lancing device with lancets kitIndications: Diabetes Mellitus 1 drop 2 (two) times a day 100 each 3 10/09/19 20 Active ondansetron (ZOFRAN) 4 mg tablet Take 1 tablet (4 mg total) by mouth every 8 (eight) hours as needed for nausea or vomiting 30 tablet 3 10/16/19 20 Active azelastine (ASTELIN) 137 mcg (0.1 %) nasal spray USE 1 SPRAY(S) IN EACH NOSTRIL TWICE DAILY DIRECTED 30 mL 5 11/14/19 20 Active Additional Information Patient taking differently: 1 spray each nostril 2 times daily PRN, Indications: Seasonal Allergic Rhinitis, Reported on 11/22/2024 aspirin 81 mg enteric coated tablet Take 1 tablet (81 mg total) by mouth 2 (two) times a day Active albuterol HFA (PROVENTIL HFA,VENTOLIN HFA,PROAIR HFA) 90 mcg/actuation inhalerIndicati ons:Acute Asthma Attack Inhale 2 puffs every 6 (six) hours as needed for wheezing or shortness of breath Active linaCLOtide (LINZESS) 290 mcg capsule Take 1 capsule (290 mcg total) by mouth daily 20 capsule 05/23/20 22 Active Additional Information Patient taking differently:290 mcg oralDaily PRN, Reported on 11/22/2024 EPINEPHrine 0.3 mg/0.3 mL auto-injection syringeIndicati ons:Anaphylaxis Inject 0.3 mL (0.3 mg total) into the muscle as instructed as needed for anaphylaxis Call 911 after use. 1 each 1 01/05/20 23 Active metoprolol tartrate (LOPRESSOR) 50 mg immediate release tablet Take 1 tablet (50 mg total) by mouth 2 (two) times a day 180 tablet 4 01/24/20 24 2024 Active metFORMIN (GLUCOPHAGE) 1,000 mg tablet Take 1 tablet (1,000 mg total) by mouth 2 (two) times a day with meals 180 tablet 2 05/26/20 24 Active magnesium oxide (MAG-OX) 400 mg (241.3 mg elemental magnesium) tablet Take 1 tablet by mouth once daily 90 tablet 08/22/20 24 Active Jardiance 25 mg tablet TAKE 1 TABLET BY MOUTH IN THE MORNING BEFORE BREAKFAST 90 tablet 08/25/20 24 Active omeprazole (PriLOSEC) 20 mg capsule Take 1 capsule by mouth once daily 90 capsule 09/30/19 25 Active dilTIAZem (CARDIZEM) 60 mg tabletIndicatio ns:Primary hypertension Take 1 tablet (60 mg total) by mouth 2 (two) times a day 180 tablet 1 10/15/19 25 Active simvastatin (ZOCOR) 20 mg tablet TAKE 1 TABLET BY MOUTH ONCE DAILY AT BEDTIME 90 tablet 10/15/19 25 Active lancets misc 1 each by other route daily Use to monitor blood sugar daily. E11.65 100 each 4 10/28/19 25 Active blood-glucose meter kit Use daily as directed for monitoring of blood sugar for diabetes. E11.65 1 kit 1 10/28/19 Active blood glucose diagnostic (glucose blood) strip Check blood sugar daily or for signs and symptoms of low blood sugar. E11.65 100 each 5 10/28/19 Active semaglutide (OZEMPIC) 0.25 mg or 0.5 mg (2 mg/3 mL) pen injector injectionIndica tions:Type 2 diabetes mellitus without complication, without long-term current use of insulin (HCC) Inject 0.5 mg under the skin once a week 3 mL 1 11/19/[address] (CYMBALTA) 60 mg capsule Take 1 capsule by mouth once daily 90 capsule 11/20/19 Active OneTouch Ultra2 Meter misc USE TO CHECK GLUCOSE TWICE DAILY 10/09/192024 Discontinued(T herapy completed) DULoxetine DR (CYMBALTA) 60 mg capsule Take 1 capsule (60 mg total) by mouth daily 90 capsule 08/21/20 24 2024 Discontinued semaglutide (OZEMPIC) 0.25 mg or 0.5 mg (2 mg/3 mL) pen injector injection Inject 0.25 mg under the skin once a week 3 mL 10/16/19 25 2024 Discontinued(R fred) Hospital, Clinic, or Other Facility Administered Medication Ordered Dose Route Frequency Start Date End Date Status ondansetron ODT (ZOFRAN-ODT) disintegrating tablet 8 mgIndications:Nausea 8 mg oral Once 11/22/2024 11/22/2024 Disc ontinued ondansetron ODT (ZOFRAN-ODT) disintegrating tablet 4 mgIndications:Nausea 4 mg oral Once 11/22/2024 11/22/2024 Ende d Active Problems Problem Noted Date Diagnosed Date Class 2 severe obesity due t o excess calories with serious comorbidity and body mass index (BMI) of 38.0 to 38.9 in adult 12/27/2023 Assessment & Plan (10/15/2024 2:14 PM CHEMICAL APPLICATOR): WITH CO MORBISITIES INCLUDING DIABETES/ HTN AND ELEVATED CHOL Assessment & Plan (04/29/2024 1:15 PM CDT): This is a chronic condition which is improving Ten lbs. Weight loss since last office visit Encouraged healthy eating which includes a low carb diet. Avoiding processed foods, sweets and fried foods. Encouraged 30 minutes of walking at least 5 days per week Discussed that exercise can be broken down into small sessions- for example 2- 15 minutes sessions or 3- 10 minutes sessions. Assessment & Plan (12/27/2023 3:16 PM CDT): This is a chronic condition which continues 6 lbs. Weight loss since last office visit Encouraged healthy eating which includes a low carb diet. Avoiding processed foods, sweets and fried foods. Encouraged 30 minutes of walking at least 5 days per week Discussed that exercise can be broken down into small sessions- for example 2- 15 minutes sessions or 3- 10 minutes sessions. Weak 08/24/2023 Hypertension associated with type 2 diabetes veronica litus 01/31/2023 Assessment & Plan (10/15/2024 2:15 PM CHEMICAL APPLICATOR): GOAL BP IS 130/80 OR UNDER LOW NA DIET Heart valve disorder 01/31/2023 Obesity (BMI 30-39.9) 01/31/2023 Allergic reaction 01/01/2023 Assessment & Plan (01/01/2023 4:19 PM CDT): This was an acute event 911 called. Epi pen 0.3mg injected into left thigh Transferred to [facility] on o2 3l/nc Abdominal wall bulge 04/26/2022 Nonsustained ventricular tachycardia 06/16/2021 Atrial fibrillation 06/15/2021 Clinical diagnosis of COVID-19 12/03/2020 Sciatica of right side 07/30/2020 Assessment & Plan (07/30/2020 4:04 PM CHEMICAL APPLICATOR): Consulted with Dr. Rico today. He advises 40mg IM shot depomedrol. X-rays of lumbar spine and left hip. Referral to PT. Patient is in agreement with the plan, however, she would like to wait on PT, and see how she feels next week after having the shot. Personal history of colonic polyps 03/10/2020 Overview (03/10/2020): Added automatically from request for surgery [id number] Routine physical examination 03/10/2020 Overview (03/10/2020): Added automatically from request for surgery [id number] Assessment & Plan (04/07/2024 4:35 PM CDT): Immnuizations were reviewed Dilated eye exma is uptodate Dental exam is uptodate Dm type 2 goal hbaic is under 7 percent foot exma is nl hbaic today f/u endocrinology H/o psvt chronic and stable better after dcing all caffeien Mixed hyperlipimdeia on zocor goal ldl is under 100 No narcotic or substance use d/o Fall prevention and precautions discussed today Gerd without esophaigits on omeroazole Essential hyperntesion goal bp is 130/80 or under Diastasis recti 10/28/2019 Type 2 diabetes mellitus wit hout complication, without long-term current use of insulin 09/20/2018 Assessment & Plan (10/15/2024 2:15 PM CHEMICAL APPLICATOR): DILATED EYE EXAM IS NL FOOT EXAM IS NL GOAL HBAIC IS UNDER 7 PERCENT HBAIC AND URINE FOR MICROALBUMIN TODAY DISCUSSED GLP1 AGONIST TODAY Assessment & Plan (04/29/2024 1:14 PM CDT): This is a chronic condition which is at goal after 10 lbs weight loss. Goal is less than 7%. Personally reviewed most recent A1c - Lab Results Component Value Date HGBA1C 6.9 (H) 04/07/2024 Personally reviewed POC blood sugar- at goal of 80-180 Lab Results Component Value Date POCGLU 130 04/29/2024 Medication- Continue Jardiance 25mg daily and Metformin 1000mg twice daily Monitor blood sugar 2 times a day. Encouraged annual eye exam. eGFR- greater than 90 Kidney function-normal Urine microalbumin/creatinine ratio - at goal. Goal is <30 not treated with ELMER/ARB Assessment & Plan (12/27/2023 3:12 PM CDT): This is a chronic condition which is at goal . Goal is less than 7-8%. Personally reviewed most recent A1c - Lab Results Component Value Date HGBA1C 7.9 (H) 10/29/2023 Personally reviewed POC blood sugar- at goal of 80-180 Lab Results Component Value Date POCGLU 121 12/27/2023 Medication- Continue Jardiance 25mg daily and Metformin 1000mg twice daily. Monitor blood sugar daily. Encouraged annual eye exam. Monofilament foot exam completed. Protective senses intact Personally reviewed CMP eGFR- 84 Kidney function-normal Urine microalbumin/creatinine ratio - at goal. Goal is <30 Continue metoprolol. B/P today- at goal . Goal is <140/90. continue metoprolol Personally reviewed lipid panel. At goal. Goal is less than 70. Continue simvastatin Assessment & Plan (04/19/2023 10:22 AM CDT): Diagnosed around 2015 Control : above target as patient not watching diet. A1c 7.8% on 03/28/23 A1c 8.3% on 08/10/22 A1c 8.0% on 03/16/22 A1c 7.2% on 02/24/21 Kidney: GFR 79 on 03/28/23 Neuropathy : none Plan: Patient to work on weight loss with diet and exercise. Avoid sweets- offered to see dietitian, but she declined Continue jardiance 25 mg /day, Continue metformin bid. Monitor sugars once /day and target am sugars 90-140. Ophthalmology exam on regular basis. Assessment & Plan (08/10/2022 1:52 PM CHEMICAL APPLICATOR): Diagnosed around 2015 Control : deterioration in control as patient not watching diet. A1c 8.3% on 08/10/22 A1c 8.0% on 03/16/22 A1c 7.2% on 02/24/21 Kidney: GFR 86 on 03/16/22 Neuropathy : none Plan: Patient again wants to try diet before adding medications. Patient to work on weight loss with diet and exercise. Avoid sweets Increase jardiance 25 mg /day, Continue metformin bid. Monitor sugars once /day and target am sugars 90-140. Ophthalmology exam on regular basis. Assessment & Plan (04/06/2022 11:12 AM CDT): Diagnosed around 2015 Control : deterioration in control as patient not watching diet. A1c 8.0% on 03/16/22 A1c 7.2% on 02/24/21 A1c 7.2% on 11/25/20 A1c 7.8% on 08/13/20 Kidney: GFR 86 on 03/16/22 Neuropathy : none Plan: Discussed with patient need to get sugar lower- she wants to try diet before adding medications. Patient to work on weight loss with diet and exercise. Continue on jardiance 10 mg /day, Continue metformin bid. Monitor sugars once /day and target am sugars 90-140. Ophthalmology exam on regular basis. Assessment & Plan (03/17/2021 2:22 PM CDT): Diagnosed around 2015 Control : not at target A1c 7.2% on 02/24/21 A1c 7.2% on 11/25/20 A1c 7.8% on 08/13/20 A1c 7.9% on 05/13/2020 A1c 8.3% on 02/12/2020. Kidney: GFR 87 on 02/24/21 Neuropathy : none Plan: Patient to work on weight loss with diet and exercise. Continue on jardiance 10 mg /day, Continue metformin bid. Monitor sugars once /day and target am sugars 90-140. Ophthalmology exam on regular basis. Assessment & Plan (11/25/2020 2:16 PM CDT): Diagnosed around 2015 Control : improved control after adding jardiance. A1c 7.2% on 11/25/20 A1c 7.8% on 08/13/20 A1c 7.9% on 05/13/2020 A1c 8.3% on 02/12/2020. Kidney: GFR 80 on 05/13/20 Neuropathy : none Plan: Patient to work on weight loss with diet and exercise. Discussed with patient low carb diet Start regular exercise as tolerated. Continue on jardiance 10 mg /day, Continue metformin bid. Monitor sugars once /day and target am sugars 90-140. Ophthalmology exam on regular basis. Assessment & Plan (08/13/2020 2:13 PM CHEMICAL APPLICATOR): Diagnosed around 2015 Control : improved control after adding jardiance. A1c 7.8% on 08/13/20 A1c 7.9% on 05/13/2020 A1c 8.3% on 02/12/2020. Kidney: GFR 80 on 05/13/20 Neuropathy : none Plan: Patient to work on weight loss with diet and exercise. Discussed with patient low carb diet Start regular exercise as tolerated. Continue on jardiance 10 mg /day, Continue metformin bid. Monitor sugars once /day and target am sugars 90-140. Ophthalmology exam on regular basis. Assessment & Plan (05/13/2020 1:49 PM CDT): Diagnosed around 2015 Control : improved control after adding jardiance. A1c 7.9% on 05/13/2020 A1c 8.3% on 02/12/2020. Kidney: GFR 88 on 04/13/20. Neuropathy : none Eye : needs annual exam Plan: Patient to work on weight loss with diet and exercise. Discussed with patient low carb diet Start regular exercise as tolerated. Continue on jardiance 10 mg /day, side effects explained and watch for urine or yeast infections. Continue metformin bid. We will monitor kidney functions. Monitor sugars once /day and target am sugars 90-140. Hypoglycemia symptoms and treatment reviewed with patient. Call if having low sugars. Ophthalmology exam on regular basis. Hx of colonic polyps 02/11/2018 Overview (02/11/2018): Added automatically from request for surgery [id number] Numbness and tingling sensation of skin 02/03/20 16 Overview (11/30/2016): Numbness and tingling sensation of skin Idiopathic osteoporosis 10/08/2014 Overview (11/30/2016): Idiopathic osteoporosis Hyperlipidemia associated with type 2 diabetes terrence inocentegideon 10/08/2014 Overview (11/30/2016): Hypercholesterolemia Assessment & Plan (10/15/2024 2:15 PM CHEMICAL APPLICATOR): FLP AND LDL WERE REVIEWED GOAL LDL IS UNDER 70 Assessment & Plan (04/29/2024 1:14 PM CDT): This is a chronic condition which is at goal . Goal is LDL less than 70 Continue simvastatin Encouraged to eat healthy, include fresh fruits and vegetables daily and avoid eating fried foods more than once per week. Assessment & Plan (12/27/2023 3:13 PM CDT): This is a chronic condition which is at goal . Goal is LDL less than 70 Continue simvastatin Encouraged to eat healthy, include fresh fruits and vegetables daily and avoid eating fried foods more than once per week. Encouraged to take medications as prescribed. Primary hypertension 10/08/2014 Overview (11/30/2016): Hypertension, benign Assessment & Plan (05/13/2020 1:50 PM CDT): Controlled with medication - low salt diet - continue medications per PCP Gastroesophageal reflux disease without esophagi tis 01/10/2014 Overview (11/30/2016): GERD (gastroesophageal reflux disease) Non-toxic multinodular goiter 01/10/2014 Overview (11/30/2016): NONTOX MULTINODUL GOITER Assessment & Plan (04/06/2022 10:33 AM CDT): History of thyroid nodules detected on MRI Patient recalls having benign FNA biopsy thyroid ultrasound on 04/15/21 showed bilateral small colloid cysts. Assessment & Plan (03/17/2021 2:33 PM CDT): History of thyroid nodules detected on MRI Patient recalls having benign FNA biopsy No records available - we will schedule thyroid ultrasound Assessment & Plan (11/25/2020 2:21 PM CDT): History of thyroid nodules detected on MRI Patient recalls having benign FNA biopsy No records available - patient will discuss with PCP as she may need follow up on nodules Assessment & Plan (08/13/2020 2:14 PM CHEMICAL APPLICATOR): History of thyroid nodules detected on MRI Patient recalls having benign FNA biopsy No records available - patient will discuss with PCP as she may need follow up on nodules. Resolved Problems Problem Noted Date Diagnosed Date Resolved Date COVID-19 virus detected 12/03/2020 10/2 08/2020 Assessment & Plan (12/03/2020 3:26 PM CDT): Patient presents with cough, fever and fatigue. 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 She was tested for COVID-19 and rapid testing positive. We discussed that she would be a candidate for monoclonal antibody infusion and she is agreeable. We will order at [facility]. We discussed symptom management with rest, fluids, and tylenol. She will continue albuterol inhaler as needed. We will send rebecca canseco for cough. She was instructed should symptoms worsen or persist that she should go to ER. Patient voiced understanding will call with any further issues or concerns. Epigastric pain 10/10/2019 06/16/2021 Overview (10/10/2019): Added automatically from request for surgery [id number] Iron deficiency anemia 10/08/201406/16 Overview (11/30/2016): Iron deficiency anemia due to chronic blood loss Supraventricular tachycardia (CMS/HCC) 01/10/2014 06/16/2021 Overview (11/30/2016): Supraventricular tachycardia Adiposity 01/10/2014 06/16/2021 Overview (12/01/2016): Obesity Encounters Date Type Department Care Team Description 11/22/2024 3:15 PM CDT Office Visit [facility] [place] [address] [address] [place] [address] Cynthia Ellington NP Olecranon bursitis of left elbow (Primary Dx); Nausea 11/19/2024 1:00 PM CDT Ancillary Procedure [facility] [address] [place] [phone] Breast cancer screening by mammogram 11/18/2024 Telephone [facility] [address] [place] [address] Wilson Rico MD Refill 10/27/2024 1:00 PM CHEMICAL APPLICATOR Office Visit [facility] [address] [place] [phone] Roxana Vasquez NP Type 2 diabetes mellitus without complication, without long-term current use of insulin (HCC) (Primary Dx); Hypertension associated with type 2 diabetes mellitus (HCC); Hyperlipidemia associated with type 2 diabetes mellitus (HCC); Class 2 severe obesity due to excess calories with serious comorbidity and body mass index (BMI) of 38.0 to 38.9 in adult (HCC) 10/16/2024 Telephone [facility] [address] [place] [address] Wilson Rico MD 10/15/2024 2:10 PM CHEMICAL APPLICATOR Lab [facility] [address] [place] [phone] Type 2 diabetes mellitus with hyperglycemia, without long-term current use of insulin (HCC); Primary hypertension 10/15/2024 1:30 PM CHEMICAL APPLICATOR Office Visit [facility] [address] [place] [address] Wilson Rico MD Type 2 diabetes mellitus with hyperglycemia, without long-term current use of insulin (HCC) (Primary Dx); Primary hypertension; Breast cancer screening by mammogram; Class 2 severe obesity due to excess calories with serious comorbidity and body mass index (BMI) of 37.0 to 37.9 in adult (HCC); Hyperlipidemia associated with type 2 diabetes mellitus (HCC); Hypertension associated with type 2 diabetes mellitus (HCC); Type 2 diabetes mellitus without complication, without long-term current use of insulin (HCC) 10/13/2024 Telephone [facility] [address] [place] [address] Wilson Rico MD 08/25/2024 Telephone [facility] [address] [place] [address] Wilson Rico MD Referral Request from Last 3 Months Immunizations Immunization Administration Dates Next Due Influenza, Trivalent, High D ose, Split, Preservative Free, Intramuscular 07/12/2016 Influenza, Unspecified 10/15/2024(Deferr ed: Patient Refused),06/13/2023(Deferred: Patient Refused) Pfizer SARS-CoV-2 Monovalent Vaccination (12+ Yrs) PURPLE 05/21/2021,05/19/2021 Pneumococcal Conjugate PCV 13 10/22/2014 Tdap 12/21/2019 Surgical History Surgery Date Site/Laterality Comments CATARACT EXTRACTION Bilateral CHOLECYSTECTOMY 08/27/1986 - 08/26/1987 APPENDECTOMY 08/27/1986 - 08/26/1987 TOTAL ABDOMINAL HYSTERECTOMY W/ BILATERAL SALPINGOOPHORECTOMY 08/27/1989 - 08/26/1990 SHOULDER SURGERY 08/27/2009 - 08/26/2010 TOTAL KNEE ARTHROPLASTY Bilateral COLONOSCOPY 02/21/2018 POLYPECTOMY BACK SURGERY Medical History Medical History Date Comments Disorder of thyroid Hypertension Hyperlipidemia Osteoarthritis GERD (gastroesophageal reflux disease) Type 2 diabetes mellitus (HCC) Gastric nodule 10/14/2019 Colon polyp Sleep apnea Asthma A-fib (HCC) Family History Medical History Relation Name Comments Cervical cancer Mother Cancer -cerv ical; Breast cancer Mother's Sister Cancer Other 1 Family history of Cancer; Heart disease Other 2 Family history of Heart disease; Hypertension Other 3 Family history of Hypertension; Osteoarthritis Other 4 Family histor y of Osteoarthritis; Relation Name Status Comments Mother Mother's Sister Other 1 Other 2 Other 3 Other 4 Social History Tobacco Use Types Packs/Day Years Used Date Smoking Tobacco: Former Cigarettes Q uit: 1972 Smokeless Tobacco: Never Tobacco Cessation:Counseling Given: Not Answered Alcohol Use Standard Drinks/Week Comments Never 0 [...] on file Legal Sex Female 1:01 AM CHEMICAL APPLICATOR Gender Identity Not on file Sexual Orientation Not on file Obstetrics History Para Term AB IAB SAB Ectopic Multiple Livin g Live Births 2 2 2 Date Outcome GA Total Labor Labor/2nd/3rd Weight Sex Type Anes PTL Imani A1 A5 Name Clin Term Term Last Filed Vital Signs Vital Sign Reading [...] Mass Index 38.09 11/22/2024 3:09 PM CDT Plan of Treatment Health Maintenance Due Date Last Done Comments Hepatitis C Screening 1945 Osteoporosis Screening-Bone Density Scan 1945 Hepatitis B Screening 1965 Zoster Vaccine (1 of 2) 1997 Pneumococcal vaccine 65+ (2 of 2 - PPSV23) 12/17/2014 10/22/2014 Covid-19 Vaccine ( season) 2024 07/12/2021, 05/21/2021, 05/19/2021 Influenza Vaccine (#1) 2025 07/12/2016 Postp oned from 04/27/2024 (Patient declined, but will receive in the future) Depression Screening 04/07/2025 04/07/2024, 05/08/2022, 04/13/2022, Additional history exists Fall Risk Assessment 04/07/2025 04/07/2024, 09/22/2021, 06/18/2021, Additional history exists Well Visit 65+ 04/07/2025 04/07/2024, 03/27, 09/22/2021, Additional history exists Hemoglobin A1C 04/14/2025 10/15/2024, 03/27, 10/29/2023, Additional history exists Foot Exam 04/29/2025 04/29/2024, 05/0 09/2023, 04/19/2023, Additional history exists Albumin Creatinine Ratio, Urine 10/15/2025 10/15/2024, 02/11/2024, 10/07/2019 Lipid Panel 10/15/2025 10/15/2024, 03/27, 10/29/2023, Additional history exists eGFR 10/15/2025 10/15/2024, 03/27, 10/29/2023, Additional history exists Dilated Eye Exam 03/24/2026 03/24/2024, 05/04/2020 DTaP/Tdap/Td Vaccine (2 - Td or Tdap) 12/20/2029 12/21/2019 Colon Cancer Screening-CT Colonography Discontinued 04/22/2020, 02/21/2018, 10/29/2014, Additional history exists Colon Cancer Screening-Colonoscopy Discontinued 04/22/2020, 02/21/2018, 10/29/2014, Additional history exists Colon Cancer Screening-DNA Stool Discontinued 04/22/2020, 02/21/2018, 10/29/2014, Additional history exists Colon Cancer Screening-FIT Discontinued 04/22, 02/21/2018, 10/29/2014, Additional history exists Colon Cancer Screening-FOBT Discontinued 04/22/2020, 02/21/2018, 10/29/2014, Additional history exists Colon Cancer Screening-Sigmoidoscopy Discontinued 04/22/2020, 02/21/2018, 10/29/2014, Additional history exists Colorectal Cancer Screening Discontinued Breast Cancer Screening-Mammogram Discontinued 11/19/2024, 11/04/2020, 08/21/2019, Additional history exists Procedures Procedure Name Priority Date/Time Associated Diagnosis Comments SCREENING MAMMOGRAM BILATERAL W ANTONY Schedule Routine, Read Routine (OP Routine) 11/19/2024 1:08 PM CDT Breast cancer screening by mammogram POCT GLUCOSE Routine 10/27/2024 12:56 PM CHEMICAL APPLICATOR Type 2 diabetes mellitus without complication, without long-term current use of insulin (HCC) EGFR Routine 10/15/2024 2:16 PM CHEMICAL APPLICATOR Primary hypertension DIFFERENTIAL AUTO Routine 10/15/2024 2:1 6 PM CHEMICAL APPLICATOR Primary hypertension CBC WITH AUTO DIFFERENTIAL Routine 10/15/2024 2:16 PM CHEMICAL APPLICATOR Primary hypertension COMPREHENSIVE METABOLIC PANEL Routine 10/15/2024 2:16 PM CHEMICAL APPLICATOR Primary hypertension LIPID PANEL Routine 10/15/2024 2:16 PM CHEMICAL APPLICATOR Primary hypertension HEMOGLOBIN A1C Routine 10/15/2024 2:16 PM CHEMICAL APPLICATOR Type 2 diabetes mellitus with hyperglycemia, without long-term current use of insulin (HCC) ALBUMIN CREATININE RATIO, URINE Routine 10/15/2024 2:16 PM CHEMICAL APPLICATOR Type 2 diabetes mellitus with hyperglycemia, without long-term current use of insulin (HCC) HM DIABETES EYE EXAM Routine 03/24/2024 COLONOSCOPY 04/22/2020 7:15 AM CDT from Last 3 Months or Most Recently Relevant to Health Maintenance Results * Screening Mammogram Bilateral W Antony (11/19/2024 1:08 PM CDT) Anatomical Region Laterality Modality Breast Bilateral Mammography 11/19/2024 6:48 PM CDT Impressions 11/19/2024 6:48 PM CDT There is no mammographic evidence of malignancy. A 1 year screening mammogram is recommended. BI-RADS: 1 - Negative. The patient has been or will be contacted. The patient will be entered into a reminder system with a target due date of 1 year for her next mammogram. Electronically signed by: Rohan Conrad 11/19/2024 6:48 PM CDT EXAMINATION: SCREENING MAMMOGRAM BILATERAL W ANTONY ORDERING HEALTHCARE PROVIDER: WILSON RICO HISTORY: Routine screening mammography. COMPARISON: 11/04/2020, 08/21/2019 TECHNIQUE: CC and MLO views of the bilateral breasts were obtained with digital technique using breast tomosynthesis with C view. Computer aided detection was utilized. FINDINGS: DENSITY: The breasts are almost entirely fatty. BREASTS: There are no suspicious masses, suspicious calcifications, or other suspicious findings in either breast. There has been no suspicious interval change. Wilson Rico MD IMG MAMMO PROCEDURES Final Result * POCT glucose (10/27/2024 12:56 PM CHEMICAL APPLICATOR) Glucose Blood, POC 139 mg/dL Blood 10/27/2024 12:5 6 PM CHEMICAL APPLICATOR Roxana Vasquez NP POINT OF CARE TEST ORDERABLES F inal Result * eGFR (10/15/2024 2:16 PM CHEMICAL APPLICATOR) eGFR 90 >=60 mL/min/1. 73 m2 Comment: Interpretive Data Reference Interval Normal >/= 90 mL/min/1.73m2 Mildly decreased* 60 - 89 mL/min/1.73m2 Mildly to moderately decreased 45 - 59 mL/min/1.73m2 Moderately to severely decreased 30 - 44 mL/min/1.73m2 Severely decreased 15 - 29 mL/min/1.73m2 Kidney Failure < 15 mL/min/1.73m2 *Relative to young adult level Estimated glomerular filtration rate is determined by the 2020 CKD-EPI equation recommended by the National Kidney Foundation (A Unifying Approach to GFR Estimation: Recommendations of the NKF-ASK Task Force on Reassessing the Inclusion of Race in Diagnosing Kidney Disease, JASN 2020). The CKD-EPI equation should not be used for patients with unstable renal function and has not been validated in children and those over 70. Current interpretive data was last reviewed 2021. Testing performed by: [facility], [address] [place] [address], [place]., [address] Blood 10/15/2024 2:16 PM CHEMICAL APPLICATOR 10/15/2024 7:11 PM CHEMICAL APPLICATOR Wilson Rico MD LAB BLOOD ORDERABLES Final Result [facility] [id number] [place] [address] Department [place] [address] * (ABNORMAL) Differential, auto (10/15/2024 2:16 PM CHEMICAL APPLICATOR) Neutrophil abs 5.5 1.5 - 6.5 K/cumm Comment:Testing performed by : [facility], [address] [place] [address]., [address] Imm gran abs 0.1 0.0 - 0.1 K/cumm CERNER Comment:Testing performed by : [facility], [address] [place] [address]., [address] Lymphocyte abs 3.5(H) 0.8 - 3.3 K/cumm CERNER Comment:Testing performed by : [facility], [address] [place] [address]., [address] Monocyte abs 0.8 0.2 - 0.8 K/cumm CERNER Comment:Testing performed by : [address] [address] Eosinophil abs 0.6(H) 0.0 - 0.5 K/cumm CERNER Comment:Testing performed by : [address] [address] Basophil abs 0.1 0.0 - 0.1 K/cumm CERNER Comment:Testing performed by : [address] [address] Neutrophil pct 52.3 % CERNER Comment: Interpretive Data Percent cell count reference ranges are not reported, since discordance with absolute values may lead to misinterpretation of CBC data. Current Interpretive Data was last revised on 2017. Testing performed by: [facility], [address] [place] [address]., [address] Imm gran pct 0.5 % CERNER Comment: Interpretive Data Percent cell count reference ranges are not reported, since discordance with absolute values may lead to misinterpretation of CBC data. Current Interpretive Data was last revised on 2017. Testing performed by: [facility], [address] [place] [address]., [address] Lymphocyte pct 33.5 % CERNER Comment: Interpretive Data Percent cell count reference ranges are not reported, since discordance with absolute values may lead to misinterpretation of CBC data. Current Interpretive Data was last revised on 2017. Testing performed by: [address] [address] Monocyte pct 7.7 % [facility] Comment: Interpretive Data Percent cell count reference ranges are not reported, since discordance with absolute values may lead to misinterpretation of CBC data. Current Interpretive Data was last revised on 2017. Testing performed by: [address] [address] Eosinophil pct 5.5 % [facility] Comment: Interpretive Data Percent cell count reference ranges are not reported, since discordance with absolute values may lead to misinterpretation of CBC data. Current Interpretive Data was last revised on 2017. Testing performed by: [address] [address] Basophil pct 0.5 % [facility] Comment: Interpretive Data Percent cell count reference ranges are not reported, since discordance with absolute values may lead to misinterpretation of CBC data. Current Interpretive Data was last revised on 2017. Testing performed by: [address] [address] Blood 10/15/2024 2:1 6 PM CHEMICAL APPLICATOR 10/15/2024 6:50 PM CHEMICAL APPLICATOR us Wilson Rico MD LAB BLOOD ORDERABLES Final Result [address] Department [place] [address] * (ABNORMAL) CBC with auto differential (10/15/2024 2:16 PM CHEMICAL APPLICATOR) WBC 10.5(H) 3.8 - 9.9 K/cumm Comment:Testing performed by : [address] [address] Hgb 12.8 11.9 - 15.5 g/dL [facility] Comment:Testing performed by : [address] [address] Hct 45.9(H) 35.6 - 45.5 % CERNER CH Comment:Testing performed by : [facility], [address] [place] [address], [address] Plt 339 150 - 400 K/cumm CERNER CH Comment:Testing performed by : [address], [address] MPV 11.6 9.1 - 12.3 fL CERNER CH Comment:Testing performed by : [address], [address] RBC 5.59(H) 3.90 - 5.20 M/cumm CERNER CH Comment:Testing performed by : [address], [address] MCV 82.1 81.3 - 96.4 fL CERNER CH Comment:Testing performed by : [address], [address] MCH 22.9(L) 27.1 - 33.3 pg CERNER Comment:Testing performed by : [address], [address] MCHC 27.9(L) 32.3 - 35.7 g/dL CERNER CH Comment:Testing performed by : [address], [address] RDW CV 19.7(H) 11.1 - 14.9 % CERNER Comment:Testing performed by : [address], [address] RDW SD 56.1(H) 35.7 - 48.1 fL CERNER Comment:Testing performed by : [address], [address] NRBC abs 0.00 0.00 - 0.01 K/cumm CERNER Comment:Testing performed by : [address], [address] Blood 10/15/2024 2:16 PM CHEMICAL APPLICATOR 10/15/2024 6:50 PM CHEMICAL APPLICATOR us Wilson Rico MD LAB BLOOD ORDERABLES Final Result [address] Department [place] [address] * Albumin Creatinine Ratio, Urine (10/15/2024 2:16 PM CHEMICAL APPLICATOR) Pathologist [facility] Albumin Ur <12.0 mg/L Comment: Interpretive Data No reference range established. Current interpretive data was last revised 2019. Testing performed by: [address] [address] Creatinine Ur 79.9 mg/dL [facility] Comment: Interpretive Data No reference range established. Current interpretive data was last revised 2019. Testing performed by: [address] [address] Albumin Creatinine Ratio, Ur <15 1 - 29 mg/g [facility] Comment:Testing performed by : [address] [address] Urine 10/15/2024 2:16 PM CHEMICAL APPLICATOR 10/15/2024 6:50 PM CHEMICAL APPLICATOR Wilson Rico MD LAB URINE ORDERABLES Final Result [address] Department [place] [address] * (ABNORMAL) Hemoglobin A1c (10/15/2024 2:16 PM CHEMICAL APPLICATOR) Pathologist [facility] Hgb A1C 7.4(H) 4.0 - 5.6 % Comment:Testing performed by : [address] [address] Estimated Average Glucose 166 mg/dL [facility] Comment: The ADA recommends reporting an estimated Average Glucose (eAG) with all Hemoglobin A1c results using the equation derived from a study of 507 normal and diabetic adults. Minority populations were underrepresented and children were not included. (Diabetes Care 31:5193-4361, 2008). The eAG is not equivalent to a fasting glucose. Testing performed by: [address] [address] Blood 10/15/2024 2:16 PM CHEMICAL APPLICATOR 10/15/2024 6:50 PM CHEMICAL APPLICATOR Wilson Rico MD LAB BLOOD ORDERABLES Final Result [facility] [id number] [place] [address] Department [place] [address] * (ABNORMAL) Lipid panel (10/15/2024 2:16 PM CHEMICAL APPLICATOR) Cholesterol 164 30 - 199 mg/dL Comment: Interpretive Data Ages < or = 19 years Acceptable: <170 mg/dL Borderline high: 170-199 mg/dL High: >or= 200 mg/dL Ages > or = 20 years Desirable: <200 mg/dL Borderline high: 200-239 mg/dL High: >or= 240 mg/dL Literature References: 1. Expert Panel on Integrated Guidelines for Cardiovascular Health and Risk Reduction in Children and Adolescents. Pediatrics 2011;128:S213 2. NCEP Expert Panel. Circulation 2004;110:227 Current Interpretive Data was last revised on 2018. Testing performed by: [address] [address] Triglycerides 278(H) <=149 mg/dL [facility] Comment: Interpretive Data Ages < or = 9 years Acceptable: <75 mg/dL Borderline high: 75-99 mg/dL High: >or= 100 mg/dL Ages 10 to 20 years Acceptable: <90 mg/dL Borderline high: 90-129 mg/dL High: >or= 130 mg/dL Ages > or = 20 years Desirable: <150 mg/dL Borderline high: 150-199 mg/dL High: 200-499 mg/dL Very high: >or= 499 mg/dL Literature References: 1. Expert Panel on Integrated Guidelines for Cardiovascular Health and Risk Reduction in Children and Adolescents. Pediatrics 2011;128:S213 2. NCEP Expert Panel. Circulation 2004;110:227 Current Interpretive Data was last revised on 2018. Testing performed by: [address] [address] HDL 44 >=40 mg/dL [facility] Comment: Interpretive Data Ages < or = 19 years Acceptable: >45 mg/dL Borderline low: 40-45 mg/dL Low: <40 mg/dL Ages > or = 20 years Desirable: >or= 60 mg/dL Low: <40 mg/dL Literature References: 1. Expert Panel on Integrated Guidelines for Cardiovascular Health and Risk Reduction in Children and Adolescents. Pediatrics 2011;128:S213 2. NCEP Expert Panel. Circulation 2004;110:227 Current Interpretive Data was last revised on 2018. Testing performed by: [facility], [address] [place] [address]., [address] LDL, calculated 75 <=129 mg/dL [facility] Comment: Interpretive Data Ages < or = 19 years Acceptable: <110 mg/dL Borderline high: 110-129 mg/dL High: >or= 130 mg/dL Ages > or = 20 years Optimal: <100 mg/dL Near optimal: 100-129 mg/dL Borderline high: 130-159 mg/dL High: >160 mg/dL Calculated using the Manav LDL-C estimating equation. This equation was implemented on 2024. Prior to this date LDL-C was estimated using the Friedewald equation. Literature References: 1. Expert Panel on Integrated Guidelines for Cardiovascular Health and Risk Reduction in Children and Adolescents. Pediatrics 2011;128:S213 2. NCEP Expert Panel. Circulation 2004;110:227 3. Manav Godoy et al. ALONDRA Cardiol. 2020 December 25;5(5):540-548. doi: 10.1001/[email or web address].2020.0013 Current Interpretive Data was last revised on 2024. Testing performed by: [address] [place] [address] Non-HDL Cholesterol 120 mg/dL [facility] Comment: Interpretive Data Ages < or = 19 years Acceptable: <120 mg/dL Borderline high: 120-144 mg/dL High: >145 mg/dL Ages > or = 20 years When triglycerides are >200 mg/dL, Non-HDL cholesterol is a secondary target of therapy with treatment goals that are 30 mg/dL greater than the LDL cholesterol target. Literature References: 1. Expert Panel on Integrated Guidelines for Cardiovascular Health and Risk Reduction in Children and Adolescents. Pediatrics 2011;128:S213 2. NCEP Expert Panel. Circulation 2004;110:227 Current Interpretive Data was last revised on 2018. Testing performed by: [facility], [address] [place] [address], [place]., [address] Chol/HDL ratio 4 [facility] Comment:Testing performed by : [address] [address] Blood 10/15/2024 2:16 PM CHEMICAL APPLICATOR 10/15/2024 6:50 PM CHEMICAL APPLICATOR Wilson Rico MD LAB BLOOD ORDERABLES Final Result [address] Department [place] [address] * (ABNORMAL) Comprehensive metabolic panel (10/15/2024 2:16 PM CHEMICAL APPLICATOR) Sodium 139 135 - 145 mmol/L Comment:Testing performed by : [address] [address] Potassium, pl 4.5 3.3 - 4.9 mmol/L [facility] Comment:Testing performed by : [address] [address] Chloride 100 97 - 110 mmol/L [facility] Comment:Testing performed by : [address] [address] CO2 24 22 - 32 mmol/L [facility] Comment:Testing performed by : [address] [address] Anion gap 15 2 - 15 mmol/L [facility] Comment:Testing performed by : [address] [address] BUN 17 6 - 25 mg/dL CERNER Comment:Testing performed by : [address], [address] Creatinine 0.68 0.60 - 1.10 mg/dL [facility] Comment:Testing performed by : [address] [address] Glucose 121 70 - 199 mg/dL [facility] Comment: Interpretive Data Fasting glucose >/= 126 mg/dl is diagnostic for diabetes. Fasting is defined as no caloric intake for at least 8 hours. Fasting glucose between 100 mg/dl to 125 mg/dl is diagnostic of prediabetes. In a patient with classic symptoms of hyperglycemia or hyperglycemic crisis, a random glucose >/= 200 mg/dl is diagnostic for diabetes. In the absence of unequivocal hyperglycemia, results should be confirmed by repeat testing. The classification and Diagnosis of Diabetes Diabetes Care 2021; 46: S19-S40. Current interpretive data was last revised 2022. Testing performed by: [facility], [address] [place] [address]., [address] Calcium 10.8(H) 8.5 - 10.3 mg/dL C[facility]ER CH Comment:Testing performed by : [address] [address] Bilirubin, total 0.3 0.1 - 1.2 mg/dL CERNER CH Comment:Testing performed by : [facility], [address] [place] [address], [address] Protein, pl 8.2 6.5 - 8.5 g/dL CERNER CH Comment:Testing performed by : [facility], [address] [place] [address]., [address] Albumin 4.6 3.5 - 5.0 g/dL C[facility] CH Comment:Testing performed by : [address], [address] Alk phos 78 40 - 130 Units/L C[facility] CH Comment:Testing performed by : [address], [address] ALT 26 7 - 45 Units/L [facility] Comment:Testing performed by : [address] [address] AST 37 10 - 45 Units/L [facility] CH Comment:Testing performed by : [address] [address] Blood 10/15/2024 2:16 PM CHEMICAL APPLICATOR 10/15/2024 6:50 PM CHEMICAL APPLICATOR us Wilson Rico MD LAB BLOOD ORDERABLES Final Result [address] Department [place] [address] * DIABETES EYE EXAM (03/24/2024) SCRIBED DIABETIC DILATED EYE EXAM Normal Narrative Luz Marina Johnston RN - 03/24/2024 Eye exam report located beneath Procedures Tab. us Historical Provider HEALTH MAINTENANCE Final Result * COLONOSCOPY (04/22/2020 7:15 AM CDT) Anatomical Region Laterality Modality Other Narrative Procedure Note Louis Parra MD - 04/22/2020 7:15 AM CDT [place] Patient Name: Sandie Roche Procedure Date: 04/22/2020 7:15 AM Date of : 1945 Admit Type: Outpatient Age: 74 Gender: Female Attending MD: Louis Parra M.D. Room: [facility] ENDOSCOPY ROOM 2 Note Status: Finalized Patient Profile: Refer to note in patient chart for documentation of history and physical. Procedure: Colonoscopy Indications: High risk colon cancer surveillance: Personalhistory of colonic polyps, Last colonoscopy within the past3 years Referring MD: Wilson Rico M.D. Providers: Louis Parra M.D. Impression: - Hemorrhoids found on perianal exam. - Four 5 to 6 mm polyps in the descending colon andin the ascending colon, removed with a hot biopsyforceps. Resected and retrieved. - The examination was otherwise normal. Recommendation: - Discharge patient to home. - Resume previous diet. - Continue present medications. - Await pathology results. - Repeat colonoscopy in 5 years for surveillance. - Return to primary care physician as previously scheduled. Medicines: Propofol per Anesthesia Complications: No immediate complications. Estimated Blood Loss: Estimated blood loss: none. Procedure: Pre-Anesthesia Assessment: - This assessment was completed [Time of Assessment] prior to the administration of sedation. The benefits, risks and alternatives of theprocedure and sedation were discussed and informed consent was obtained. All questions were answered. Please referto the signed informed consent document in the medical record. The bowel preparation used was Miralax. The bowel preparation used was bisacodyl tablets. Bowel prep was administered using a single dose. The scope was passed under direct vision. The Colonoscope [id number] was introduced through the anusand advanced to the the terminal ileum, withidentification of the appendiceal orifice and IC valve. The colonoscopy was performed without difficulty. The patient tolerated the procedure well. The quality of the bowel preparation was adequate to identifypolyps 6 mm and larger in size. Findings: Hemorrhoids were found on perianal exam. Four sessile polyps were found in the descending colon and ascending colon. The polyps were 5 to 6 mm in size. These polyps were removedwith a hot biopsy forceps. Resection and retrieval were complete. Verification of patient identification for the specimen was done bythe physician and nurse using the patient's name and date.Estimated blood loss was minimal. The exam was otherwise without abnormality. Electronically signed by Louis Parra M.D. Louis Parra M.D. 04/22/2020 8:29:10 AM Number of Addenda: 0 Note Initiated On: 04/22/2020 7:15 AM Procedure Code(s): --- Professional --- [address]9839, Colonoscopy, flexible; with removal of tumor(s), polyp(s), or other lesion(s) by hot biopsy forceps Diagnosis Code(s): --- Professional --- D12.2, Benign neoplasm of ascending colon D12.4, Benign neoplasm of descending colon K64.9, Unspecified hemorrhoids Z86.010, Personal history of colonic polyps CPT copyright 2017 [employer] [employer]. All rights reserved. The codes documented in this report are preliminary and upon quarry supervisor dimension stone reviewmay be revised to meet current compliance requirements. Recognized by the [place] [employer] for promoting quality in endoscopy Louis Parra MD ENDOSCOPY PROCEDURES Final Re sult from Last 3 Months or Most Recently Relevant to Health Maintenance Insurance [facility] MEDICARE ADVANTAGE [facility] MEDICARE U[employer] MEDICARE ADVANTAGE Advance Directives For more information, please contact: [phone] Documents on File Type Date Recorded Patient Hunter Guide Expl anation ADVANCE DIRECTIVE 06/16/2021 11:46 AM Pow er of [place] Expedition Guide-Medical * Full Code (Latest Code Status on File) Date Activated Date Inactivated Comments 06/15/2021 10:43 PM 06/18/2021 7:06 PM * Full Code Date Activated Date Inactivated Comments 04/22/2020 7:14 AM 04/22/2020 1:27 PM * Full Code Date Activated Date Inactivated Comments 04/22/2020 7:14 AM 04/22/2020 7:14 AM * Full Code Date Activated Date Inactivated Comments 10/28/2019 1:06 PM 10/28/2019 7:31 PM * Full Code Date Activated Date Inactivated Comments 10/14/2019 7:48 AM 10/14/2019 2:31 PM Care Teams Telegraph Repeater Mechanic Relationship Specialty Start Date End Date Wilson Rico MD [address] [place] [id number] PCP - General 11/24/16
--- OUTSIDE RECORDS SUMMARY | 2024-11-22 16:40 | XMS_ITS | Encounter Summary ---
Author Organization [facility] Address [address] [place] [address] Care Team Providers Care Reject Opener Name Role Phone Unavailable Primary Care Provider Unavailabl e Encounter Details Date Type Department Care Team (Late st Contact Info) Description 11/19/2020 Lab Requisition [facility] DermPath Lab [address] [facility], [place] [address] Fadi Tavarez Jr., MD [address] [place] [address] Social History Tobacco Use Types Packs/Day Years Used Date Smoking Tobacco: Never Alcohol Use Standard Drinks/Week Comments No 0 (1 standard drink = 0.6 oz pur e alcohol) Sex and Gender Information Value Date Recorded Sex Assigned at Not on file Gender Identity Not on file Sexual Orientation Not on file documented as of this encounter Plan of Treatment Not on file documented as of this encounter Procedures Procedure Name Priority Date/Time Associated Diagnosis Comments DERMATOPATHOLOGY Routine 11/18/2020 12:0 0 AM CDT documented in this encounter Results * DERMATOPATHOLOGY (11/18/2020 12:00 AM CDT) Case Report Dermatopathology Report Case: [id number] Authorizing Provider: Fadi Tavarez Jr., MD Collected: 11/18/2020 12:00 AM Ordering Location: [facility] DermPath Lab Received: 11/19/2020 01:01 PM Pathologist: Nancy Alegre MD Specimens: A) - Skin, right superior upper back B) - Skin, right posterior shoulder C) - Skin, left posterior shoulder D) - Skin, left medial superior chest E) - Skin, left radial dorsal hand 12:28 PM [facility] DERMATOPATHOLOGY LABORATORY Final Diagnosis Specimen A. SKIN, right superior upper back: BENIGN VERRUCOUS KERATOSIS (L82.1) Specimen B. SKIN, right posterior shoulder: BENIGN VERRUCOUS KERATOSIS, INFLAMED (L82.1) Specimen C. SKIN, left posterior shoulder: BASAL CELL CARCINOMA, NODULAR TYPE (C44.619) Specimen D. SKIN, left medial superior chest: SEBORRHEIC KERATOSIS, MACULAR (L82.1) Specimen E. SKIN, left radial dorsal hand: SEBORRHEIC KERATOSIS, MACULAR (L82.1) 12:28 PM [facility] DERMATOPATHOLOGY LABORATORY Clinical History A-B: Inflamed seborrheic keratosis vs verruca vulgaris vs basal cell carcinoma vs vann's disease. C: Basal cell carcinoma. D-E: Melanoma vs pigmented seborrheic keratosis vs junctional melanocytic nevus vs pigmented basal cell carcinoma vs atypical seborrheic keratosis. 12:28 PM [facility] DERMATOPATHOLOGY LABORATORY Gross Description Specimen A: Received is one formalin filled container labeled with the patient's name and designated right superior upper back. The specimen consists of a shave biopsy measuring 6d5i8nm, bisected. Jar 0. Specimen B: Received is one formalin filled container labeled with the patient's name and designated right posterior shoulder. The specimen consists of a shave biopsy measuring 2n4j3wk. Jar 0. Specimen C: Received is one formalin filled container labeled with the patient's name and designated left posterior shoulder. The specimen consists of a shave biopsy measuring 6g8y3du. Jar 0. Specimen D: Received is one formalin filled container labeled with the patient's name and designated left medial superior chest. The specimen consists of a shave biopsy measuring 99m89m4vf. Jar 0. Specimen E: Received is one formalin filled container labeled with the patient's name and designated left radial dorsal hand. The specimen consists of a shave biopsy measuring [id number]. Jar 0. 12:28 PM [facility] DERMATOPATHOLOGY LABORATORY Microscopic Description Specimen A. SKIN, right superior upper back: Sections show hyperkeratosis, papillomatosis, hypergranulosis, and acanthosis. These histological findings can be seen in a verruca vulgaris or a seborrheic keratosis. Specimen B. SKIN, right posterior shoulder: Sections show hyperkeratosis, papillomatosis, hypergranulosis, and acanthosis. Inflammatory cells are present within the dermis. These histological findings can be seen in a verruca vulgaris or a seborrheic keratosis. Specimen C. SKIN, left posterior shoulder: Within the dermis there are aggregates of basaloid cells with a high nuclear to cytoplasmic ratio and peripheral palisading. Specimen D. SKIN, left medial superior chest: Sections show a relatively broad, flat proliferation of small keratinocytes. The surface is gently papillated, and there is increased basilar pigmentation. Specimen E. SKIN, left radial dorsal hand: Sections show a relatively broad, flat proliferation of small keratinocytes. The surface is gently papillated, and there is increased basilar pigmentation. 12:28 PM CDT DERMATOPATHOLOGY LABORATORY Disclaimer An external and internal positive and negative controls are appropriate for the histochemical, immunohistochemical and immunofluorescence stain(s) in this case (if any), except where stated explicitly. The performance characteristics of the stain(s) cited in this report were developed and its performance characteristic determined by the Dermatopathology Laboratory at [facility], directed by Dr. Waleska Bowman. These tests need not be, and therefore are not, approved by the [place] Food and Drug Administration. The tests are used for clinical purposes. Billing Codes Specimen Charges Stain Charges 79239 51157 44181 [id number] 61954 1 1 1 1 1 12:28 PM CDT DERMATOPATHOLOGY LABORATORY Embedded Images 12:28 PM CDT DERMATOPATHOLOGY LABORATORY Pathology/Cytology TISSUE SPECIMEN FROM SKIN / Unknown 11/18/2020 11/19/2020 1:01 PM CDT Miscellaneous samples (specimen) TISSUE SPECIMEN FROM SKIN / Unknown 11/18/2020 11/19/2020 1:01 PM CDT Miscellaneous samples (specimen) TISSUE SPECIMEN FROM SKIN / Unknown 11/18/2020 11/19/2020 1:01 PM CDT Miscellaneous samples (specimen) TISSUE SPECIMEN FROM SKIN / Unknown 11/18/2020 11/19/2020 1:01 PM CDT Miscellaneous samples (specimen) TISSUE SPECIMEN FROM SKIN / Unknown 11/18/2020 11/19/2020 1:01 PM CDT Fadi Tavarez Jr., MD LAB - PATHOLOGY /CYTOLOGY ORDERABLES DERMATOPATHOLOGY LABORATORY [facility] - Department of Dermatology [facility] Specialized Medicine [address] [place] [address], [address] [phone] documented in this encounter Visit Diagnoses Not on filedocumented in this encounter
--- OUTSIDE RECORDS SUMMARY | 2024-11-22 16:40 | XMS_ITS | Clinical Summary ---
Author Organization [facility] Address [address] [place] [address] Care Team Providers Care Cuffing Machine Operator Name Role Phone Wilson Rico MD Primary Care Provider [phone] Allergies Active Allergy Reactions Criticality Noted Date Comments Codeine Nausea and Vomiting,Nausea Only Low 04/2010 Lisinopril Cough Low 06/24/2021 Medications albuterol sulfate HFA 108 (90 Base) MCG/ACT inhaler Inhale 2 puffs into the lungs every 6 (six) hours as needed. Active aspirin EC (ASPIRIN EC) 81 MG tablet Take 81 mg by mouth 2 (two) times daily. Active DULoxetine 60 MG capsule Take 60 mg by mouth daily. 12/29/2020 Active empagliflozin (JARDIANCE) 10 MG tablet Take 1 tablet by mouth daily. 09/02/2020 Active metFORMIN 1000 MG tablet Take 1,000 mg by mouth 2 (two) times daily. 09/02/2020 Active omeprazole 20 MG capsule Take 20 mg by mouth daily. 09/02/2020 Active Ondansetron (ZUPLENZ) 4 MG FILM Take 4 mg by mouth every 8 (eight) hours. Active simvastatin 20 MG tablet Take 20 mg by mouth nightly. 09/02/2020 Active vitamin B-12 (CYANOCOBALAMIN ) 1000 mcg tablet Take 1,000 mcg by mouth daily. Active vitamin D3, cholecalciferol , 1000 UNIT Tab tablet Take 1 tablet by mouth daily. Active azelastine 0.1 % nasal spray 1 spray by Nasal route as needed. Use in each nostril as directed Active magnesium oxide (MAG-OX) 400 (240 Mg) MG tablet Take 400 mg by mouth daily. 05/27/2022 Active linaCLOtide (LINZESS) 145 MCG capsule Take 145 mcg by mouth every other day. Take on empty stomach at least 30 minutes prior to the first meal of the day. Swallow whole. Do not open capsule or chew. Active metoprolol succinate ER (TOPROL-XL) 100 MG 24 hr tablet Take 1 tablet (100 mg total) by mouth 2 (two) times daily. 180 tablet 3 06/23/2022 Active Active Problems Problem Noted Date Diagnosed Date Clinical diagnosis of COVID-19 12/03/2020 Gastroesophageal reflux disease without esophagi tis 01/10/2014 Overview (06/24/2021): GERD (gastroesophageal reflux disease) Essential hypertension Atrial fibrillation ([facility]) Hyperlipidemia V tach ([facility] Diabetes ([facility]) Wide-complex tachycardia Family History Medical History Relation Comments Heart Attack Brother Open Heart Brother Stent Cardiac Mother Stroke Mother Relation Status Comments Brother Father (Age 64) Mother Social History Tobacco Use Types Packs/Day Years Used Date Smoking Tobacco: Former Cigarettes Q uit: 1975 Smokeless Tobacco: Never Alcohol Use Standard Drinks/Week Comments Never 0 (1 standard drink = 0.6 oz pur e alcohol) Comments Unknown Sex and Gender Information Value Date Recorded Sex Assigned at Not on file Legal Sex Female 4:57 PM CDT Gender Identity Not on file Sexual Orientation Not on file Last Filed Vital Signs Vital Sign Reading Time Taken Comments Blood Pressure 134/70 06/23/2022 11:56 AM CDT Pulse 74 06/23/2022 11:56 AM CDT Temperature - - Respiratory Rate - - Oxygen Saturation 94% 06/23/2022 11:56 AM CDT Inhaled Oxygen Concentration - - Weight 101.6 kg (224 lb) 06/23/2022 11:56 AM CDT Height 160 cm (5' 3 ) 06/23/2022 11:56 AM CDT Body Mass Index 39.68 06/23/2022 11:56 AM CDT Plan of Treatment Health Maintenance Due Date Last Done Comments Kidney Health Evaluation 1947 Lipid Panel 1947 Diabetes: Retinopathy Eye Exam 1965 Hepatitis C 1965 Zoster Vaccines (1 of 2) 1997 Annual Medicare Wellness Visit 2012 Dexa Scan (General) 2012 Pneumococcal Vaccine: 65+ Years (2 of 2 - PPSV23 or PCV20) 12/17/2014 10/22/2014 Hemoglobin A1C 09/16/2022 03/16/2022, 08/28, 06/15/2021, Additional history exists RSV Immunization or 60+ Years (1 - 1-dose 75+ series) 2022 COVID-19 Vaccine (2 - season) 2024 05/19/2021 Influenza Adult (#1) 2024 07/12/2016 DTaP, Tdap and Td Vaccines (2 - Td or Tdap) 12/20/2029 12/21/2019 Meningococcal B Vaccine Aged Out No l onger eligible based on patient's age to complete this topic Meningococcal Vaccine Aged Out No abraham mynor eligible based on patient's age to complete this topic RSV Immunizations Under 20 Months Aged Out No longer eligible based on patient's age to complete this topic Insurance [employer] Care Teams Cuffing Machine Operator Relationship Specialty Start Date End Date Wilson Rico MD [address] [place] [address] PCP - General INTERNAL MEDICINE 06/20/21
--- OUTSIDE RECORDS SUMMARY | 2024-11-22 16:40 | XMS_ITS | Encounter Summary ---
Author Organization [facility] Address [address] [place] [address] Care Team Providers Care Office Clinician Name Role Phone Unavailable Primary Care Provider Unavailabl e Encounter Details Date Type Department Care Team (Late st Contact Info) Description 01/10/2021 Lab Requisition [facility] DermPath Lab [address] [facility] [place] [address] Fadi Tavarez Jr., MD [address] [place] [address] Social History Tobacco Use Types Packs/Day Years [...] Priority Date/Time Associated Diagnosis Comments DERMATOPATHOLOGY Routine 01/06/2021 3:33 AM CDT documented in this encounter Results * DERMATOPATHOLOGY (01/06/2021 3:33 AM CDT) Case Report Dermatopathology Report Case: [id number] Authorizing Provider: Fadi Tavarez Jr., MD Collected: 01/06/2021 03:33 AM Ordering Location: [facility] DermPath Lab Received: 01/10/2021 05:59 AM Pathologist: Nancy Alegre MD Specimen: Skin, left posterior shoulder 1:29 PM CDT DERMATOPATHOLOGY LABORATORY Final Diagnosis Specimen A. SKIN, left posterior shoulder: DERMAL SCAR RESIDUAL BASAL CELL CARCINOMA NOT IDENTIFIED (L90.5) 1:29 PM CDT DERMATOPATHOLOGY LABORATORY Clinical History Basal cell carcinoma. Check margins. 1:29 PM CDT DERMATOPATHOLOGY LABORATORY Gross Description Specimen A: Received is one formalin filled container labeled with the patient's name and designated left posterior shoulder.The specimen consists of an ellipse measuring [id number] and is oriented with the suture at the 12 o'clock position labeled on the requisition as placed superior. The 12 to 6 o'clock margin is inked green. The 6 o'clock to 12 o'clock margin is inked black. The 12 o'clock tip is submitted in cassette 1. The 6 o'clock tip is submitted in cassette 2. The remainder of the ellipse is serially sectioned and submitted in cassettes 3. Jar 0. 1:29 PM CDT DERMATOPATHOLOGY LABORATORY Microscopic Description Specimen A. SKIN, left posterior shoulder: There are fibroblasts and collagen bundles oriented parallel to the skin surface. There are elongated blood vessels, some of which are oriented perpendicular to the skin surface. No basal cell carcinoma is identified. 1:29 PM CDT DERMATOPATHOLOGY LABORATORY Disclaimer An external and internal positive and negative controls are appropriate for the histochemical, immunohistochemical and immunofluorescence stain(s) in this case (if any), except where stated explicitly. The performance characteristics of the stain(s) cited in this report were developed and its performance characteristic determined by the Dermatopathology Laboratory at [facility], directed by Dr. Waleska Bowman. These tests need not be, and therefore are not, approved by the [place] Food and Drug Administration. The tests are used for clinical purposes. Billing Codes Specimen Charges Stain Charges 35827 1 1 1:29 PM CDT DERMATOPATHOLOGY LABORATORY Embedded Images 1:29 PM CDT DERMATOPATHOLOGY LABORATORY Pathology/Cytolo gy TISSUE SPECIMEN FROM SKIN / Unknown 01/06/2021 3:33 AM CDT 01/10/2021 5:59 AM CDT Fadi Tavarez Jr., MD LAB - PATHOLOGY /CYTOLOGY ORDERABLES DERMATOPATHOLOGY LABORATORY [facility] - Department of Dermatology [facility] Specialized Medicine [address] [place] [address], [address] [phone] documented in this encounter Visit Diagnoses Not on filedocumented in this encounter
--- OUTSIDE RECORDS SUMMARY | 2024-11-22 16:40 | XMS_ITS | Referral Summary ---
Author Organization [facility] [address] Address [address] [place] [address] Phone Care Team Providers Care Inbound Customer Service Representative Name Role Phone Wilson Rico MD Primary Care Provider [phone] Encounters Date Type Department Care Team Description 11/22/2024 3:15 PM CDT Office Visit [facility] [place] [address] [place] [id number] Cynthia Ellington NP Olecranon bursitis of left elbow (Primary Dx); Nausea 11/19/2024 1:00 PM CDT Ancillary Procedure [facility] [address] [place] [address] Breast cancer screening by mammogram 11/18/2024 Telephone [facility] [address] [place] [address] Wilson Rico MD Refill 10/27/2024 1:00 PM CLOTH EXAMINER HAND Office Visit [facility] at [address] [place] [address] Roxana Vasquez NP Type 2 diabetes mellitus without complication, without long-term current use of insulin (HCC) (Primary Dx); Hypertension associated with type 2 diabetes mellitus (HCC); Hyperlipidemia associated with type 2 diabetes mellitus (HCC); Class 2 severe obesity due to excess calories with serious comorbidity and body mass index (BMI) of 38.0 to 38.9 in adult (HCC) 10/16/2024 Telephone [facility] [address] [place] [address] Wilson Rico MD 10/15/2024 2:10 PM CLOTH EXAMINER HAND Lab [facility] [address] [place] [address] Type 2 diabetes mellitus with hyperglycemia, without long-term current use of insulin ([facility]); Primary hypertension 10/15/2024 1:30 PM CLOTH EXAMINER HAND [facility] [address] [facility] [address] [place] [address] Wilson Rico MD Type 2 diabetes mellitus [...] current use of insulin (HCC) 10/13/2024 Telephone [facility] [address] [place] [address] Wilson Rico MD 08/25/2024 Telephone [facility] [address] [place] [address] Wilson Rico MD Referral Request from Last 3 Months Allergies Active Allergy Reactions Criticality Noted Date [...] sugar daily. E11.65 100 each 4 10/28/19 Active blood-glucose meter kit Use daily as [...] once a week 3 mL 1 11/19/[address] (CYMBALTA) 60 mg capsule Take 1 capsule by mouth once daily 90 capsule 11/20/19 25 Active OneTouch Ultra2 Meter misc USE TO CHECK GLUCOSE TWICE DAILY 10/09/19 20 2024 Discontinued(T herapy completed) DULoxetine DR (CYMBALTA) 60 [...] 12/27/2023 Assessment & Plan (10/15/2024 2:14 PM CLOTH EXAMINER HAND): WITH CO MORBISITIES INCLUDING DIABETES/ HTN AND [...] 01/31/2023 Assessment & Plan (10/15/2024 2:15 PM CLOTH EXAMINER HAND): GOAL BP IS 130/80 OR UNDER LOW NA DIET Heart valve disorder 01/31/2023 Obesity (BMI 30-39.9) 01/31/2023 Allergic reaction 01/01/2023 Assessment & Plan (01/01/2023 4:19 PM CDT): This was an acute event 911 called. Epi pen 0.3mg injected into left thigh Transferred to [facility] on o2 3l/nc Abdominal wall bulge 04/26/2022 Nonsustained ventricular tachycardia 06/16/2021 Atrial fibrillation 06/15/2021 Clinical diagnosis of COVID-19 12/03/2020 Sciatica of right side 07/30/2020 Assessment & Plan (07/30/2020 4:04 PM CLOTH EXAMINER HAND): Consulted with Dr. Rico today. He advises 40mg IM shot depomedrol. X-rays of lumbar spine and left hip. Referral to PT. Patient is in agreement with the plan, however, she would like to wait on PT, and see how she feels next week after having the shot. Personal history of colonic polyps 03/10/2020 Overview (03/10/2020): Added automatically from request for surgery [id number] Routine physical examination 03/10/2020 Overview (03/10/2020): Added automatically from request for surgery [id number] Assessment & Plan (04/07/2024 4:35 PM CDT): [...] 09/20/2018 Assessment & Plan (10/15/2024 2:15 PM CLOTH EXAMINER HAND): DILATED EYE EXAM IS NL FOOT EXAM [...] basis. Assessment & Plan (08/10/2022 1:52 PM CLOTH EXAMINER HAND): Diagnosed around 2015 Control : deterioration in [...] basis. 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 Resolved Problems Problem Noted Date Diagnosed Date Resolved Date COVID-19 virus detected 12/03/202005/28 Assessment & Plan (12/03/2020 3:26 PM CDT): Patient presents with cough, fever and fatigue. 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 She was tested for COVID-19 and rapid testing positive. We discussed that she would be a candidate for monoclonal antibody infusion and she is agreeable. We will order at [facility]. We discussed symptom management with rest, fluids, and tylenol. She will continue albuterol inhaler as needed. We will send rebecca canseco for cough. She was instructed should symptoms worsen or persist that she should go to ER. Patient voiced understanding will call with any further issues or concerns. Epigastric pain 10/10/2019 06/16/2021 Overview (10/10/2019): Added automatically from request for surgery [id number] Iron deficiency anemia 10/08/201406/16 Overview (11/30/2016): Iron deficiency anemia due to chronic blood loss Supraventricular tachycardia (CMS/HCC) 01/10/2014 06/16/2021 Overview (11/30/2016): Supraventricular tachycardia Adiposity 01/10/2014 06/16/2021 Overview (12/01/2016): Obesity Immunizations Immunization Administration Dates Next Due Influenza, Trivalent, High D ose, Split, Preservative Free, Intramuscular 07/12/2016 Influenza, Unspecified 10/15/2024(Deferr ed: Patient Refused),06/13/2023(Deferred: Patient Refused) Pfizer SARS-CoV-2 Monovalent Vaccination (12+ Yrs) PURPLE 05/21/2021,05/19/2021 Pneumococcal Conjugate PCV 13 10/22/2014 Tdap 12/21/2019 Social History Tobacco Use Types Packs/Day Years [...] on file Legal Sex Female 1:01 AM CLOTH EXAMINER HAND Gender Identity Not on file Sexual Orientation [...] 11/22/2024 3:09 PM CDT Plan of Treatment Not on file Procedures Procedure Name Priority Date/Time Associated Diagnosis Comments SCREENING MAMMOGRAM BILATERAL W ANTONY Schedule Routine, Read Routine (OP Routine) 11/19/2024 1:08 PM CDT Breast cancer screening by mammogram POCT GLUCOSE Routine 10/27/2024 12:56 PM CLOTH EXAMINER HAND Type 2 diabetes mellitus without complication, without long-term current use of insulin (HCC) EGFR Routine 10/15/2024 2:16 PM CLOTH EXAMINER HAND Primary hypertension DIFFERENTIAL AUTO Routine 10/15/2024 2:1 6 PM CLOTH EXAMINER HAND Primary hypertension CBC WITH AUTO DIFFERENTIAL Routine 10/15/2024 2:16 PM CLOTH EXAMINER HAND Primary hypertension COMPREHENSIVE METABOLIC PANEL Routine 10/15/2024 2:16 PM CLOTH EXAMINER HAND Primary hypertension LIPID PANEL Routine 10/15/2024 2:16 PM CLOTH EXAMINER HAND Primary hypertension HEMOGLOBIN A1C Routine 10/15/2024 2:16 PM CLOTH EXAMINER HAND Type 2 diabetes mellitus with hyperglycemia, without long-term current use of insulin (HCC) ALBUMIN CREATININE RATIO, URINE Routine 10/15/2024 2:16 PM CLOTH EXAMINER HAND Type 2 diabetes mellitus with hyperglycemia, without [...] for her next mammogram. Electronically signed by: Rigo Martinez M.D. Narrative 11/19/2024 6:48 PM CDT EXAMINATION: SCREENING MAMMOGRAM [...] There has been no suspicious interval change. us Wilson Rico MD IMG MAMMO PROCEDURES Final Result * POCT glucose (10/27/2024 12:56 PM CLOTH EXAMINER HAND) Glucose Blood, POC 139 mg/dL Blood 10/27/2024 12:5 6 PM CLOTH EXAMINER HAND Roxana Vasquez NP POINT OF CARE TEST ORDERABLES F inal Result * eGFR (10/15/2024 2:16 PM CLOTH EXAMINER HAND) eGFR 90 >=60 mL/min/1. 73 m2 Comment: [...] was last reviewed 2021. Testing performed by: [facility], [address] [place] [address]., [address] Blood 10/15/2024 2:16 PM CLOTH EXAMINER HAND 10/15/2024 7:11 PM CLOTH EXAMINER HAND Wilson Rico MD LAB BLOOD ORDERABLES Final Result [address] Department [place] [address] * (ABNORMAL) Differential, auto (10/15/2024 2:16 PM CLOTH EXAMINER HAND) Neutrophil abs 5.5 1.5 - 6.5 K/cumm Comment:Testing performed by : [address] [address] Imm gran abs 0.1 0.0 - 0.1 K/cumm [facility] Comment:Testing performed by : [address] [address] Lymphocyte abs 3.5(H) 0.8 - 3.3 K/cumm [facility] Comment:Testing performed by : [address] [address] Monocyte abs 0.8 0.2 - 0.8 K/cumm [facility] Comment:Testing performed by : [address] [address] Eosinophil abs 0.6(H) 0.0 - 0.5 K/cumm [facility] Comment:Testing performed by : [address] [address] Basophil abs 0.1 0.0 - 0.1 K/cumm [facility] Comment:Testing performed by : [address] [address] Neutrophil pct 52.3 % [facility] Comment: Interpretive Data Percent cell count reference ranges are not reported, since discordance with absolute values may lead to misinterpretation of CBC data. Current Interpretive Data was last revised on 2017. Testing performed by: [address] [address] Imm gran pct 0.5 % [facility] Comment: Interpretive Data Percent cell count reference ranges are not reported, since discordance with absolute values may lead to misinterpretation of CBC data. Current Interpretive Data was last revised on 2017. Testing performed by: [facility], [address] [place] [address]., [address] Lymphocyte pct 33.5 % [facility] Comment: Interpretive Data Percent cell count reference ranges are not reported, since discordance with absolute values may lead to misinterpretation of CBC data. Current Interpretive Data was last revised on 2017. Testing performed by: [facility], [address] [place] [address]., [address] Monocyte pct 7.7 % [facility] Comment: Interpretive Data Percent cell count reference ranges are not reported, since discordance with absolute values may lead to misinterpretation of CBC data. Current Interpretive Data was last revised on 2017. Testing performed by: [address] [address] Eosinophil pct 5.5 % [facility] Comment: Interpretive Data Percent cell count reference ranges are not reported, since discordance with absolute values may lead to misinterpretation of CBC data. Current Interpretive Data was last revised on 2017. Testing performed by: [address] [address] Basophil pct 0.5 % [facility] Comment: Interpretive Data Percent cell count reference ranges are not reported, since discordance with absolute values may lead to misinterpretation of CBC data. Current Interpretive Data was last revised on 2017. Testing performed by: [address] [address] Blood 10/15/2024 2:16 PM CLOTH EXAMINER HAND 10/15/2024 6:50 PM CLOTH EXAMINER HAND Wilson Rico MD LAB BLOOD ORDERABLES Final Result [facility] [address] Department [place] [address] * (ABNORMAL) CBC with auto differential (10/15/2024 2:16 PM CLOTH EXAMINER HAND) WBC 10.5(H) 3.8 - 9.9 K/cumm Comment:Testing performed by : [address], [address] Hgb 12.8 11.9 - 15.5 g/dL [facility] Comment:Testing performed by : [address], [address] Hct 45.9(H) 35.6 - 45.5 % [facility] Comment:Testing performed by : [address], [address] Plt 339 150 - 400 K/cumm [facility] Comment:Testing performed by : [address], [address] MPV 11.6 9.1 - 12.3 fL [facility] Comment:Testing performed by : [address], [address] RBC 5.59(H) 3.90 - 5.20 M/cumm [facility] Comment:Testing performed by : [address], [address] MCV 82.1 81.3 - 96.4 fL [facility] Comment:Testing performed by : [address], [address] MCH 22.9(L) 27.1 - 33.3 pg [facility] Comment:Testing performed by : [address], [address] MCHC 27.9(L) 32.3 - 35.7 g/dL [facility] Comment:Testing performed by : [address], [address] RDW CV 19.7(H) 11.1 - 14.9 % [facility] Comment:Testing performed by : [address], [address] RDW SD 56.1(H) 35.7 - 48.1 fL [facility] Comment:Testing performed by : [address], [address] NRBC abs 0.00 0.00 - 0.01 K/cumm [facility] Comment:Testing performed by : [address], [address] Blood 10/15/2024 2:16 PM CLOTH EXAMINER HAND 10/15/2024 6:50 PM CLOTH EXAMINER HAND Wilson Rico MD LAB BLOOD ORDERABLES Final Result Performing Organization Address [facility] de Phone Number [place] [phone] [facility] [employer] [place] [address] * Albumin Creatinine Ratio, Urine (10/15/2024 2:16 PM CLOTH EXAMINER HAND) Albumin Ur <12.0 mg/L Comment: Interpretive Data No reference range established. Current interpretive data was last revised 2019. Testing performed by: [address] [address] Creatinine Ur 79.9 mg/dL [facility] Comment: Interpretive Data No reference range established. Current interpretive data was last revised 2019. Testing performed by: [address] [address] Albumin Creatinine Ratio, Ur <15 1 - 29 mg/g [facility] Comment:Testing performed by : [address] [address] Urine 10/15/2024 2:16 PM CLOTH EXAMINER HAND 10/15/2024 6:50 PM CLOTH EXAMINER HAND Result [facility] Wilson Rico MD LAB URINE ORDERABLES Final Result Performing Organization Address [facility] de Phone Number [facility] [address] [facility] [employer] [place] [address] * (ABNORMAL) Hemoglobin A1c (10/15/2024 2:16 PM CLOTH EXAMINER HAND) Hgb A1C 7.4(H) 4.0 - 5.6 % Comment:Testing performed by : [address] [address] Estimated Average Glucose 166 mg/dL [facility] Comment: The ADA recommends reporting an estimated Average Glucose (eAG) with all Hemoglobin A1c results using the equation derived from a study of 507 normal and diabetic adults. Minority populations were underrepresented and children were not included. (Diabetes Care 31:3984-9326, 2008). The eAG is not equivalent to a fasting glucose. Testing performed by: [facility], [address] [place] [address]., [address] Blood 10/15/2024 2:16 PM CLOTH EXAMINER HAND 10/15/2024 6:50 PM CLOTH EXAMINER HAND Wilson Rico MD LAB BLOOD ORDERABLES Final Result [facility] [address] Department [place] [address] * (ABNORMAL) Lipid panel (10/15/2024 2:16 PM CLOTH EXAMINER HAND) Cholesterol 164 30 - 199 mg/dL Comment: [...] last revised on 2018. Testing performed by: [facility], [address] [place] [address]., [address] Triglycerides 278(H) <=149 mg/dL [facility] ST[facility] Comment: Interpretive Data Ages < or = [...] last revised on 2018. Testing performed by: [facility], [address] [place] [address]., [address] HDL 44 >=40 mg/dL [facility] Comment: Interpretive [...] last revised on 2018. Testing performed by: [facility], [address] [place] [address]., [address] LDL, calculated 75 <=129 mg/dL [facility] Comment: [...] NCEP Expert Panel. Circulation 2004;110:227 3. Manav Capone al. ALONDRA Cardiol. 2019December 25;5(5):540-548. doi: 10.1001/jamacardio.2020.0013 Current Interpretive Data was last revised on 2024. Testing performed by: [facility], [address] [place] [address], [place]., [address] Non-HDL Cholesterol 120 mg/dL [facility] Comment: Interpretive Data Ages < [...] last revised on 2018. Testing performed by: [facility], [address] [place] [address]., [address] Chol/HDL ratio 4 [facility] Comment:Testing performed by : [address] [address] Blood 10/15/2024 2:16 PM CLOTH EXAMINER HAND 10/15/2024 6:50 PM CLOTH EXAMINER HAND Wilson Rico MD LAB BLOOD ORDERABLES Final Result [address] Department [place] [address] * (ABNORMAL) Comprehensive metabolic panel (10/15/2024 2:16 PM CLOTH EXAMINER HAND) Sodium 139 135 - 145 mmol/L Comment:Testing performed by : [address] [address] Potassium, pl 4.5 3.3 - 4.9 mmol/L [facility] Comment:Testing performed by : [address] [address] Chloride 100 97 - 110 mmol/L [facility] Comment:Testing performed by : [address] [address] CO2 24 22 - 32 mmol/L [facility] Comment:Testing performed by : [address] [address] Anion gap 15 2 - 15 mmol/L [facility] Comment:Testing performed by : [address] [address] BUN 17 6 - 25 mg/dL [facility] Comment:Testing performed by : [address] [address] Creatinine 0.68 0.60 - 1.10 mg/dL [facility] Comment:Testing performed by : [address] [address] Glucose 121 70 - 199 mg/dL [facility] Comment: Interpretive Data Fasting glucose >/= 126 [...] was last revised 2022. Testing performed by: [facility], [address] [place] [address]., [address] Calcium 10.8(H) 8.5 - 10.3 mg/dL [facility] Comment:Testing performed by : [address] [address] Bilirubin, total 0.3 0.1 - 1.2 mg/dL [facility] Comment:Testing performed by : [address] [address] Protein, pl 8.2 6.5 - 8.5 g/dL [facility] Comment:Testing performed by : [address] [address] Albumin 4.6 3.5 - 5.0 g/dL [facility] Comment:Testing performed by : [address] [address] Alk phos 78 40 - 130 Units/L [facility] Comment:Testing performed by : [address], [address] ALT 26 7 - 45 Units/L [facility] Comment:Testing performed by : [address], [address] AST 37 10 - 45 Units/L [facility] Comment:Testing performed by : [address], [address] Blood 10/15/2024 2:16 PM CLOTH EXAMINER HAND 10/15/2024 6:50 PM CLOTH EXAMINER HAND Wilson Rico MD LAB [place]LO[place] [address] [address] Department of Laboratories [place] [id number] * DIABETES EYE EXAM (03/24/2024) SCRIBED DIABETIC DILATED EYE EXAM Normal Narrative Luz Marina Johnston RN - 03/24/2024 Eye exam report located beneath Procedures Tab. us Historical Provider HEALTH MAINTENANCE Final Result * COLONOSCOPY (04/22/2020 7:15 AM CDT) Anatomical Region Laterality Modality Other Narrative Procedure Note Louis Parra MD - 04/22/2020 7:15 AM CDT [facility] Patient Name: Sandie Roche Procedure Date: 04/22/2020 7:15 AM Date of : 1945 Admit Type: Outpatient Age: 74 Gender: Female Attending MD: Louis Parra M.D. Room: [facility] ENDOSCOPY ROOM 2 Note Status: Finalized Patient Profile: Refer to note in patient chart for documentation of history and physical. Procedure: Colonoscopy Indications: High risk colon cancer surveillance: Personalhistory of colonic polyps, Last colonoscopy within the past3 years Referring MD: Wilson Rico M.D. Providers: Louis R. Fidel, M.D. Impression: - Hemorrhoids found on perianal [...] was passed under direct vision. The Colonoscope [id number] was introduced through the anusand advanced to [...] 7:15 AM Procedure Code(s): --- Professional --- [address]109, Colonoscopy, flexible; with removal of tumor(s), polyp(s), or other lesion(s) by hot biopsy forceps Diagnosis Code(s): --- Professional --- D12.2, Benign neoplasm of ascending colon D12.4, Benign neoplasm of descending colon K64.9, Unspecified hemorrhoids Z86.010, Personal history of colonic polyps CPT copyright 2017 [employer]. All rights reserved. The codes documented in this report are preliminary and upon youth nutritional monitor reviewmay be revised to meet current compliance requirements. Recognized by the [employer] for promoting quality in endoscopy Louis Parra MD ENDOSCOPY PROCEDURES Final Re sult from Last 3 Months or Most Recently Relevant to Health Maintenance Insurance [employer] MEDICARE ADVANTAGE Advance Directives For more information, please contact: [phone] Documents on File Type Date Recorded Patient Marketing Team Lead Expl anation ADVANCE DIRECTIVE 06/16/2021 11:[address] [facility] er of Dietetic Intern-Medical * Full Code (Latest Code Status on [...] 7:48 AM 10/14/2019 2:31 PM Care Teams Inbound Customer Service Representative Relationship Specialty Start Date End Date Wilson Rico MD [address] [place] [address] PCP - General 11/24/16
--- OUTSIDE RECORDS SUMMARY | 2024-11-22 16:40 | XMS_ITS | Clinical Summary ---
Author Organization [facility] Address [address] [place] [address] Care Team Providers Care Extension Work Instructor Name Role Phone Unavailable Primary Care Provider Unavailabl e Source Comments [facility],non-owned Affiliates and Associated Physician Practices is amultiple site organization consisting of ambulatory clinics and hospital sitesin [place], [place], [place] and [place]. This disclosure is being madepursuant to the Care Everywhere program and may not contain all information available regarding this patient. Last updated 18.[facility] Allergies Active Allergy Reactions Criticality Noted Date Comments Codeine Nausea and/or Vomiting 03/04/2010 Medications * Be aware that medications may not be up to date on this document. Alwaysverify current medications with the patient. Medication Sig Dispensed Refills Start Date End Date Status simvastatin (ZOCOR) 20 MG tablet Take 20 mg by mouth at bedtime. Active METOPROLOL SUCCINATE PO Take by mouth 2 times daily. 50 mg am/ 100 mg pm Active triamterene-hydrochloro thiazide (MAXZIDE-25) 37.5-25 MG tablet Take 1 Tab by mouth daily. Daily Active ranitidine (ZANTAC) 150 MG tablet Take 150 mg by mouth 2 times daily. Take am of OR Active Active Problems Problem Noted Date Diagnosed Date Preoperative examination 02/21/2010 Social History Tobacco Use Types Packs/Day Years Used Date Smoking Tobacco: Never Alcohol Use Standard Drinks/Week Comments No 0 (1 standard drink = 0.6 oz pur e alcohol) Sex and Gender Information Value Date Recorded Sex Assigned at Not on file Gender Identity Not on file Sexual Orientation Not on file Last Filed Vital Signs Vital Sign Reading Time Taken Comments Blood Pressure 109/66 03/04/2010 2:00 PM CDT Pulse 53 03/04/2010 2:00 PM CDT Temperature 36.2 C (97.2 F) 03/04/2010 2:00 PM CDT Respiratory Rate 16 03/04/2010 2:00 PM CDT Oxygen Saturation 90% 03/04/2010 1:08 PM CDT Inhaled Oxygen Concentration - - Weight 111.1 kg (245 lb) 02/21/2010 4:05 PM CDT Height 160 cm (5' 3 ) 02/21/2010 4:05 PM CDT Body Mass Index 43.4 02/21/2010 4:05 PM CDT Plan of Treatment Health Maintenance Due Date Last Done Comments BONE DENSITY TESTING 1945 HEPATITIS C SCREENING 10/06/1965 DTAP/TDAP/TD VACCINES (1 - Tdap) 1966 PNEUMOCOCCAL VACCINE 50+ (1 of 1 - PCV) 1997 ZOSTER VACCINE (1 of 2) 1997 Respiratory Syncytial Virus (RSV) Vaccine Pt: or over 60 yrs (1 - 1-dose 75+ series) 2022 COVID-19 VACCINE ( - 2023-2 5 season) 2024 INFLUENZA VACCINE (#1) 2024 DEPRESSION SCREENING 08/27/2024 MEDICARE AWV CALENDAR YEAR 2024 HEPATITIS B VACCINE Aged Out No longe r eligible based on patient's age to complete this topic HIB VACCINE Aged Out No longer eligi ble based on patient's age to complete this topic HPV VACCINE Aged Out No longer eligi ble based on patient's age to complete this topic MENINGOCOCCAL (Group B) VACC INE SHARED DECISION-MAKING Aged Out No longer eligibl e based on patient's age to complete this topic MENINGOCOCCAL GROUPS A/C/Y/W VACCINE Aged Out No longer eligible b ased on patient's age to complete this topic
--- OUTSIDE RECORDS SUMMARY | 2024-11-22 16:40 | XMS_ITS | Encounter Summary ---
Author Organization [facility] Address [facility] [place] [address] Care Team Providers Care Fur Floor Worker Name Role Phone Wilson Rico MD Primary Care Provider [phone] Encounter Details Date Type Department Care Team (Late st Contact Info) Description 06/21/2021 Abstract [facility] [address] uRben Saunders MA Social History Tobacco Use Types Packs/Day Years Used Date Smoking Tobacco: Never Smokeless Tobacco: Never Alcohol Use Standard Drinks/Week Comments Never 0 (1 standard drink = 0.6 oz pur e alcohol) Comments Unknown Sex and Gender Information Value Date Recorded Sex Assigned at Not on file Legal Sex Female 4:57 PM CDT Gender Identity Not on file Sexual Orientation Not on file COVID-19 Exposure Response Date Recorded In the last month, have you been in contact with someone who was confirmed or suspected to have Coronavirus / COVID-19? No / Unsure 06/24/2021 10:39 AM CDT documented as of this encounter Plan of Treatment Not on file documented as of this encounter Procedures Procedure Name Priority Date/Time Associated Diagnosis Comments PROTIME (OUTSIDE LAB) Routine 06/15/2021 CBC (OUTSIDE LAB) Routine 06/15/2021 COMPREHENSIVE METABOLIC PANEL Routine 06/15/2021 THYROID STIM HORMONE TSH Routine 06/15/2021 MAGNESIUM Routine 06/15/2021 CK (CPK) Routine 06/15/2021 documented in this encounter Results * THYROID STIM HORMONE, TSH (06/15/2021) TSH 4.60 06/15/2021 us [facility] Abstract LABORATORY Final Result * MAGNESIUM (06/15/2021) Pathologist [facility] MAGNESIUM 1.8 06/15/2021 us Doc [facility] Abstract LABORATORY Edited Resul t - Final * CK (CPK) (06/15/2021) Pathologist [facility] CPK 74 06/15/2021 us Doc [facility] Abstract LABORATORY Final Result * CBC (OUTSIDE LAB) (06/15/2021) Pathologist [facility] WBC 8.7 HGB 13.4 HCT 43.2 PLT 274 06/15/2021 us Doc [facility] Abstract LAB-OUTSIDE/ABSTRACTED Final Result * COMPREHENSIVE METABOLIC PANEL (06/15/2021) Pathologist [facility] SODIUM S/P/B 140 POTASSIUM S/P/B 3.5 CO2 24 CHLORIDE S/P/B 101 GLUCOSE 216 mg/dL CALCIUM S/P/B 8.8 BUN 17 CREATININE S/P/B 0.97 0.5 - 1.0 EGFR NON-AFR. AMER. 56 <=90 ALKALINE PHOSPHATASE S/P/B 74 ALT 43 AST 32 BILIRUBIN TOTAL S/P/B 0.4 ALBUMIN S/P/B 3.7 3.5 - 5.0 TOTAL PROTEIN S/P/B 7.7 06/15/2021 us Doc [facility] Abstract LABORATORY Final Result * PROTIME (OUTSIDE LAB) (06/15/2021) PROTIME 10.0 INR 1.0 06/15/2021 us Doc [facility] Abstract LAB-OUTSIDE/ABSTRACTED Final Result documented in this encounter Visit Diagnoses Not on filedocumented in this encounter Care Teams Fur Floor Worker Relationship Specialty Start Date End Date Wilson Rico MD [address] [place] [address] PCP - General INTERNAL MEDICINE 06/20/21 documented as of this encounter
--- OUTSIDE RECORDS SUMMARY | 2024-11-22 16:40 | XMS_ITS | Continuity of Care Document ---
Author Organization [facility] Address [address] [place] [address] Phone Care Team Providers Care Supervisor [employer] Name Role Phone Sonia KELLI, Sarah Unavailable Unavailable Allergies, Adverse Reactions, Alerts Substance Reaction Status Criticality codeine Active No Information Medications Medication Instructions Dosage Effective Dates (start - stop) Status Comments Jardiance 10 mg tablet take 1 tablet by oral route every day in the morning 10 MG - Active B12 5,000 mcg-100 mcg sublingual lozenge 1 tablet by mouth once a day - Active Cymbalta 20 mg capsule,delayed release take 1 capsule by oral route 2 times every day 20 MG - Active metformin 500 mg tablet take 1 tablet by oral route 2 times every day with morning and evening meals 500 MG - Active metoprolol tartrate 100 mg tablet take 1 tablet by oral route 2 times every day with meals 100 MG - Active ranitidine 150 mg tablet take 1 tablet by oral route 2 times every day - Active triamterene 50 mg-hydrochlorothi azide 25 mg capsule take 1 capsule by oral route every day - Active simvastatin 20 mg tablet take 1 tablet by oral route every day in the evening 20 MG - Active Tylenol 325 mg tablet take 1 tablet by oral route every 4 hours as needed 325 MG - Active IBUPROFEN (unknown strength) take 1 capsule by oral route every 6 hours as needed Not Available - Active Zuplenz 4 mg oral soluble film take 2 film by oral route every 8 hours for [address] on top of the tongue where it will dissolve, then swallow - No Longer Active Procedures Procedure Date Refraction No Charge Optomap Fundus Photos 024 Office/outpatient Visit, Est Refraction Fundus Photography W/ Report Eye Exam & Treatment No Charge Optomap Fundus Photos 020 Eye Exam & Treatment No Charge Optomap Fundus Photos 019 No Charge Refraction Eye Exam & Treatment No Charge Optomap Fundus Photos 018 No Charge Refraction Office/outpatient Visit, Est Refraction No Charge Optomap Fundus Photos 017 Eye Exam & Treatment No Charge Refraction Eye Exam, New Patient Office/outpatient Visit, Est Post-op Follow-up Visit Post-op Follow-up Visit Eye Exam, New Patient After Cataract Laser Surgery After Cataract Laser Surgery Advance Directives Directive Yes / No Effective Date File Name Other Directive No N/A N/A WARNING:The information contained in this section is historical and is provided for information only and does not constitute a legal document or any assurance that the information is still accurate. Please verify the information with the andersen of the legal document before using it for clinical purposes. Encounters Encounter Description Practice Location Reason(s) For Visit Diagnoses Date Provider Providers Copied on Encounter Office/outpa tient Visit, Est [facility], [address], [place], [place], [address], [place] tel:[phone] [place] Professional Complete Exam (chief complaint) Insufficiency of tear film of both eyesType 2 diabetes mellitus without complicationsP seudophakia of both eyes 4 Sonai OD Sarah. [address], [place], [place], [address], [place]. tel:[phone] Catrina Watt MD.Sravani Sanchez MD.Referri ng Provider: Ector Neal, [address] [place] [address] [place] [address], [place], [address] . tel:[phone] [facility], [address] [place] [address] [address], [place], [place], [address], [place] tel:[phone] [place] Professional diabetic eye exam (chief complaint) Presence of intraocular lensType 2 diabetes mellitus without complicationsD rusen (degenerative) of macula, right eye Nov 1 Bullock Arash. [address] [facility] [address] [address] [address], [address], [place], [place], [address], [place]. tel:[phone] Specialist : Catrina Watt MD, [address] [facility] [address] [address], [place], [address]. tel:[phone] cialist: Sravani Sanchez MD, [address] [facility] [address], [place], [address]. tel:[phone] erring Provider: Ector Neal, [facility] [address] [place] [address] [facility] [address], [place], [address] . tel:[phone] [facility], [address] [place] [address] [address], [place], [place], [address], [place] tel:[phone] [place] Professional Complete Exam (chief complaint) Type 2 diabetes mellitus without complicationsP seudophakia of both eyes Sep-0 0 Verona Barney. [facility] [address] [place] [address] [facility], [address], [place], [place], [address], [place]. tel:[phone] Specialist : Catrina Watt MD, [address] [facility] [address], [place], [address]. tel:[phone] cialist: Sravani Sanchez MD, [address] [facility] [address], [place], [address]. tel:[phone] cialist:, [address] [facility] [address], [place], [address]. tel:[phone] erring Provider: Ector Neal, [facility] [address], [place], [address] . tel:[phone] [facility], [address] [place], [place] [address] [address], [place], [place], [address], [place] tel:[phone] [place] Professional Diabetic eye exam (chief complaint) Type 2 diabetes mellitus without complicationsP resence of intraocular lens Apr- 0 9 Verona Barney. [facility] [address], [address], [place], [place], [address], [place]. tel:[phone] Referring Provider: Ector Neal, [facility] [address], [place], [address] . tel:[phone] [facility], [facility] [address], [place], [place], [address], [place] [phone] [place] Professional No Information 9 Kobe Antoine. [address] [facility], [address], [place], [place], [address], [place]. tel:[phone] Office/outpa tient Visit, [facility], [facility] [address], [place], [place], [address], [place] [phone] [place] Professional Blurry/dec reased vision (chief complaint) Type 2 diabetes mellitus without complicationsP resence of intraocular lens Phu- 8 Verona Barney. [facility] [address], [address], [place], [place], [address], [place]. tel:[phone] Referring Provider: Ector Neal, [facility] [address], [place], [address] . tel:[phone] [facility], [facility] [address], [place], [place], [address], [place] [phone] [place] Professional Complete Exam (chief complaint) No Information Mar-0 7 Verona Barney. [facility] [address], [address], [place], [place], [address], [place]. tel:[phone] Referring Provider: Ector Neal, [facility] [address], [place], [address] . tel:[phone] [facility], [address] [place] [address] [address], [place], [place], [address], [place] [phone] [place]ON[place] Professional No Information Apr-2 1-201 7 Kobe Antoine. [address] [facility], [address], [place], [place], [address], . tel:[phone] [facility], [facility] [address], [place], [place], [address], [phone] SEC [place] LEONIE Professional blurry vision (chief complaint) No Information Dec-1 5-201 5 Guy Khalil. [address] [facility], [address], [place], [place], [address], [place]. tel:[phone] Referring Provider: Remi Neal, [address] [facility] [address], [place], [address] . tel:[phone] [facility], [facility] [address], [place], [place], [address], [place] [phone] SEC [place] Professional No Information Nov-3 0-201 5 Josekrubio Khalil. [address] [facility], [address], [place], [place], [address], [place]. tel:[phone] Office/outpa tient Visit, Est [facility], [address] [place], [place] [address], [place], [place], [address], [place] [phone] SEC Deepika Galindo No Information Oct-0 8-201 0 Verona Barney. [facility] [address], [address], [place], [place], [address], [place]. tel:[phone] [facility], [address], [place], [place], [address], tel:[phone] SEC [place] Uriel No Information 1-201 0 [place] Ector. [address], [address], [place], [place], [address], [place]. tel:[phone] [facility], [address], [place], [place], [address], [place] [phone] SEC [place] Professional No Information 4- 0 Guy Khaill. [address] [facility], [address], [place], [place], [address], [place]. tel:[phone] [facility], [address], [place], [place], [address], [phone] SEC Deepika Trevino No Information 3-201 0 Verona Barney. [address], [address], [place], [place], [address], [place]. tel:[phone] Family History Family Member Type Diagnosis Age At Onset No Information Payers Payer name Insurance type Covered constitution party ID Authoriza tijimenez(s) [employer] Mdcr Gold Adv Prime CI [id number] Social History Type Description Quantity Date Captured Comments Alcohol Use Details No Caffeine Use Details Tobacco Use Status Ex-cigarette smoker 024 Smoking Status Former smoker Smoking Tobacco Use Details Cigarette: Age Started: 21, Age Stopped: 26, Years Used 5 Cigarette: No Details Available Sex Female Chief Complaint And Reason For Visit From encounter dated '03/24/2024 15:00'. Complete Exam (chief complaint). Description: The 78 year old patient presents for evaluation of Complete DM Exam in the right eye and left eye. Pt states that glasses seem to be pretty scratched. Ptstates no problems with vision in OU. Pts PCP Follows them for Diabetes Type II and last A1C was 7.2 and last Blood Sugar reading was 161. Reason For Referral Reason For Referral No Information Plan Of Treatment Date Type Action Status Goal Tobacco cessation counseling completed Patient Education Learning About Your Eye s completed Patient Education Type 2 Diabetes: Care I nstructions completed History Of Present Illness Encounter Date Complaint History Of Prese nt Illness Complete Exam The 78 year old patient presents for evaluation of Complete DM Exam in the right eye and left eye. Pt states that glasses seem to be pretty scratched. Pt states no problems with vision in OU. Pts PCP Follows them for Diabetes Type II and last A1C was 7.2 and last Blood Sugar reading was 161. diabetic eye exam The 75 year ol d female presents for a complete Type II diabetic exam ou. Patient is pseudo ou with yag caps ou. BS was 144 yesterday and last A1C was 7.[address] Watt treats DM. Patient c/o both eyes seem blurry while watching TV. Patient wears OTC reading glasses. Complete Exam The 74 year old female presents for evaluation of Complete Exam in the right eye and left eye. Hx PCIOL OU, Yag PC OU, DM2. Last A1c unknown, BS unknown, Followed by Dr. Watt. Pt reports occasional blurred vision at far. Pt only uses OTC readers for near. Diabetic eye exam The 73 year ol d female presents for evaluation of Diabetic eye exam in the right eye and left eye. Hx of PCIOL OU and YAG PC OU. Patient states she is having trouble seeing images on the television or reading the print on the television. Patient has trouble seeing in dim light. Patient is a Type 2 diab x 1 year, NOT on Insulin, BS checked a week ago @ 148, unknown a1c, and PCP treats her diab. Her diabetic medications have been increased and she states her doctor is working on getting this better controlled. Patient would like a new rx for glasses today. Blurry/decreased vision The 72 y ear old female presents for evaluation of Blurry/decreased vision in the right eye and left eye. Hx of PC IOL OU and Yag PC OU. Pt states vision has decreased at distance x 2-3 mos. Pt states she is having a hard time seeing peoples features when watching TV, hard to see a persons face across the street, and having to get very close to a street sign to read is clearly. Pt states vision is worse at dusk. Pt is NIDDM II and is unsure of her A1c, but her FBS was 146 this AM. Complete Exam The 71 year old female presents for Complete Exam in the right eye and left eye. Hx PCIOL OU, Yag PC OU, DMII NID last BSL/ A1c 118, yesterday. Pt states her vision is doing a lot worse that it was before. Pt states over the last year she has noticed that its like a film that covers her eye. Pt states she is bothered by glare on bright days and at night while driving. Pt state she has more difficulty reading small print and doing close work. Pt states recognizing faces at a distance and watching Tv have becme more difficult. Pt denies using eye drops. blurry vision The 69 year old female presents for a complete IOL ou exam. Patient c/o decreased vision ou and harder to read small print. Functional Status Date Functional Assessmen t No Information Instructions Date Instruction Additional Infor sindhu Impression/Plan Impression/Plan Impression/Plan Impression/Plan Impression/Plan Optomap on return visit Related to Type 2 diabetes mellitus without complications Rec good blood sugar control Rel ated to Type 2 diabetes mellitus without complications Follow up - 1 yr complete exam Impression/Plan - Di scussed exam findings with pt. Rec AT's that contain Polyvinyl alcohol. Diabetes type II: no background retinopathy, no signs of neovascularization noted. Discussed ocular and systemic benefits of blood sugar control. Letter generated and sent to Dr. Rico. Optional spec Rx will have front desk supervisor give at checkout if she wants to change. Insufficiency of tea r film of both eyes - AT's recommended Related to Insufficiency of tear film of both eyes Follow up - Return i n 1 year with Remi Tovar M.D. for Complete Exam. Impression/Plan - Di scussed dx in detail. No treatment needed at this time. Instructed patient to return to clinic with new floaters or signs of retinal tears or detachments. Return to clinic in 1 year for complete exam or sooner with any problems. Assessments Type Assessment Date assessment Insufficiency of tear film of fernando th eyes assessment Type 2 diabetes mellitus without complications assessment Pseudophakia of both eyes Patient Care Teams Name Effective Dates (start - stop) Status Members No Information
[2024-11-22 16:42] VITALS: BP 125/72; PULSE 87; RESP 18; TEMP 37; O2SAT 96
[2024-11-22 18:52] VITALS: BP 134/91; PULSE 89; RESP 20; O2SAT 96
--- OUTSIDE RECORDS SUMMARY | 2024-11-22 18:58 | XMS_ITS | Clinical Summary ---
Author Organization [facility] Address [address] [place] [address] Care Team Providers Care Bridge Maintainer Name Role Phone Unavailable Primary Care Provider Unavailabl e Source Comments [facility],non-owned Affiliates and Associated Physician Practices is amultiple site organization consisting of ambulatory clinics and hospital sitesin [place], [place], [place] and [place]. This disclosure is being madepursuant to the Care Everywhere program and may not contain all information available regarding this patient. Last updated 18.[facility] Allergies Active Allergy Reactions Criticality Noted Date [...]
--- OUTSIDE RECORDS SUMMARY | 2024-11-22 18:58 | XMS_ITS | Encounter Summary ---
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
--- OUTSIDE RECORDS SUMMARY | 2024-11-22 18:58 | XMS_ITS | Referral Summary ---
Author Organization [facility] [address] Address [address] [place] [address] Phone Care Team Providers Care New Car Driver Name Role Phone Wilson Rico MD Primary Care Provider [phone] Encounters Date Type Department Care Team Description 11/22/2024 3:15 PM CDT Office Visit [facility] [address] [address] [place] [phone] Cynthia Ellington NP Olecranon bursitis of left elbow (Primary Dx); Nausea 11/19/2024 1:00 PM CDT Ancillary Procedure [facility] [address] [place] [address] Breast cancer screening by mammogram 11/18/2024 Telephone [facility] [address] [place] [address] Wilson Rico MD Refill 10/27/2024 1:00 PM QUICK TECHNICIAN Office Visit [facility] at [address] [place] [address] Roxana Vasquez NP Type 2 diabetes mellitus without complication, without long-term current use of insulin (HCC) (Primary Dx); Hypertension associated with type 2 diabetes mellitus (HCC); Hyperlipidemia associated with type 2 diabetes mellitus (HCC); Class 2 severe obesity due to excess calories with serious comorbidity and body mass index (BMI) of 38.0 to 38.9 in adult (HCC) 10/16/2024 Telephone [facility] [address] [place] [address] Wilson Rico MD 10/15/2024 2:10 PM QUICK TECHNICIAN Lab [facility] [address] [place] [address] Type 2 diabetes mellitus with hyperglycemia, without long-term current use of insulin ([facility]); Primary hypertension 10/15/2024 1:30 PM QUICK TECHNICIAN [facility] [address] [facility] [address] [place] [address] Wilson Rico MD Type 2 diabetes mellitus [...] current use of insulin (HCC) 10/13/2024 Telephone [facility] [address] [place] [address] Wilson Rico MD 08/25/2024 Telephone [facility] [address] [place] [address] iWlson Rico MD Referral Request from Last 3 [...] 12/27/2023 Assessment & Plan (10/15/2024 2:14 PM QUICK TECHNICIAN): WITH CO MORBISITIES INCLUDING DIABETES/ HTN AND [...] 01/31/2023 Assessment & Plan (10/15/2024 2:15 PM QUICK TECHNICIAN): GOAL BP IS 130/80 OR UNDER LOW NA DIET Heart valve disorder 01/31/2023 Obesity (BMI 30-39.9) 01/31/2023 Allergic reaction 01/01/2023 Assessment & Plan (01/01/2023 4:19 PM CDT): This was an acute event 911 called. Epi pen 0.3mg injected into left thigh Transferred to [facility] on o2 3l/nc Abdominal wall bulge 04/26/2022 Nonsustained ventricular tachycardia 06/16/2021 Atrial fibrillation 06/15/2021 Clinical diagnosis of COVID-19 12/03/2020 Sciatica of right side 07/30/2020 Assessment & Plan (07/30/2020 4:04 PM QUICK TECHNICIAN): Consulted with Dr. Rico today. He advises 40mg IM shot depomedrol. X-rays of lumbar spine and left hip. Referral to PT. Patient is in agreement with the plan, however, she would like to wait on PT, and see how she feels next week after having the shot. Personal history of colonic polyps 03/10/2020 Overview (03/10/2020): Added automatically from request for surgery [id number] Routine physical examination 03/10/2020 Overview (03/10/2020): Added automatically from request for surgery [id number] Assessment & Plan (04/07/2024 4:35 PM CDT): [...] 09/20/2018 Assessment & Plan (10/15/2024 2:15 PM QUICK TECHNICIAN): DILATED EYE EXAM IS NL FOOT EXAM [...] goal. Goal is <30 not treated with ELMRE/ARB Assessment & Plan (12/27/2023 3:12 PM CDT): [...] basis. Assessment & Plan (08/10/2022 1:52 PM QUICK TECHNICIAN): Diagnosed around 2015 Control : deterioration in [...] basis. 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 We will order at [facility]. We discussed symptom management with rest, fluids, and tylenol. She will continue albuterol inhaler as needed. We will send rebecca canseco for cough. She was instructed should symptoms worsen or persist that she should go to ER. Patient voiced understanding will call with any further issues or concerns. Epigastric pain 10/10/2019 06/16/2021 Overview (10/10/2019): Added automatically from request for surgery [id number] Iron deficiency anemia 10/08/201406/16 Overview (11/30/2016): Iron [...] on file Legal Sex Female 1:01 AM QUICK TECHNICIAN Gender Identity Not on file Sexual Orientation [...] mammogram POCT GLUCOSE Routine 10/27/2024 12:56 PM QUICK TECHNICIAN Type 2 diabetes mellitus without complication, without long-term current use of insulin (HCC) EGFR Routine 10/15/2024 2:16 PM QUICK TECHNICIAN Primary hypertension DIFFERENTIAL AUTO Routine 10/15/2024 2:1 6 PM QUICK TECHNICIAN Primary hypertension CBC WITH AUTO DIFFERENTIAL Routine 10/15/2024 2:16 PM QUICK TECHNICIAN Primary hypertension COMPREHENSIVE METABOLIC PANEL Routine 10/15/2024 2:16 PM QUICK TECHNICIAN Primary hypertension LIPID PANEL Routine 10/15/2024 2:16 PM QUICK TECHNICIAN Primary hypertension HEMOGLOBIN A1C Routine 10/15/2024 2:16 PM QUICK TECHNICIAN Type 2 diabetes mellitus with hyperglycemia, without long-term current use of insulin (HCC) ALBUMIN CREATININE RATIO, URINE Routine 10/15/2024 2:16 PM QUICK TECHNICIAN Type 2 diabetes mellitus with hyperglycemia, without [...] Result * POCT glucose (10/27/2024 12:56 PM QUICK TECHNICIAN) Glucose Blood, POC 139 mg/dL Blood 10/27/2024 12:5 6 PM QUICK TECHNICIAN Roxana Vasquez NP POINT OF CARE TEST ORDERABLES F inal Result * eGFR (10/15/2024 2:16 PM QUICK TECHNICIAN) eGFR 90 >=60 mL/min/1. 73 m2 Comment: [...] was last reviewed 2021. Testing performed by: [facility], [address] [place] [address]., [address] Blood 10/15/2024 2:16 PM QUICK TECHNICIAN 10/15/2024 7:11 PM QUICK TECHNICIAN Wilson Rico MD LAB BLOOD ORDERABLES Final Result [address] Department [place] [address] * (ABNORMAL) Differential, auto (10/15/2024 2:16 PM QUICK TECHNICIAN) Neutrophil abs 5.5 1.5 - 6.5 K/cumm Comment:Testing performed by : [address] [address] Imm gran abs 0.1 0.0 - 0.1 K/cumm [facility] Comment:Testing performed by : [address] [address] Lymphocyte abs 3.5(H) 0.8 - 3.3 K/cumm [facility] Comment:Testing performed by : [address] [address] Monocyte abs 0.8 0.2 - 0.8 K/cumm [facility] Comment:Testing performed by : [address] [address] Eosinophil abs 0.6(H) 0.0 - 0.5 K/cumm [facility] Comment:Testing performed by : [address] [address] Basophil abs 0.1 0.0 - 0.1 K/cumm [facility] Comment:Testing performed by : [address] [address] Neutrophil pct 52.3 % [facility] Comment: Interpretive Data Percent cell count reference ranges are not reported, since discordance with absolute values may lead to misinterpretation of CBC data. Current Interpretive Data was last revised on 2017. Testing performed by: [address] [address] Imm gran pct 0.5 % C[facility]ER Comment: Interpretive Data Percent cell count reference ranges are not reported, since discordance with absolute values may lead to misinterpretation of CBC data. Current Interpretive Data was last revised on 2017. Testing performed by: [facility], [address] [place] [address]., [address] Lymphocyte pct 33.5 % C[facility]ER Comment: Interpretive Data Percent cell count reference ranges are not reported, since discordance with absolute values may lead to misinterpretation of CBC data. Current Interpretive Data was last revised on 2017. Testing performed by: [facility], [address] [place] [address]., [address] Monocyte pct 7.7 % C[facility]ER Comment: Interpretive Data Percent cell count reference ranges are not reported, since discordance with absolute values may lead to misinterpretation of CBC data. Current Interpretive Data was last revised on 2017. Testing performed by: [address] [address] Eosinophil pct 5.5 % C[facility]ER Comment: Interpretive Data Percent cell count reference ranges are not reported, since discordance with absolute values may lead to misinterpretation of CBC data. Current Interpretive Data was last revised on 2017. Testing performed by: [address] [address] Basophil pct 0.5 % C[facility]ER Comment: Interpretive Data Percent cell count reference ranges are not reported, since discordance with absolute values may lead to misinterpretation of CBC data. Current Interpretive Data was last revised on 2017. Testing performed by: [address] [address] Blood 10/15/2024 2:16 PM QUICK TECHNICIAN 10/15/2024 6:50 PM QUICK TECHNICIAN Wilson Rico MD LAB BLOOD ORDERABLES Final Result [facility] [address] Department [place] [address] * (ABNORMAL) CBC with auto differential (10/15/2024 2:16 PM QUICK TECHNICIAN) WBC 10.5(H) 3.8 - 9.9 K/cumm Comment:Testing performed by : [address], [address] Hgb 12.8 11.9 - 15.5 g/dL [facility] Comment:Testing performed by : [address], [address] Hct 45.9(H) 35.6 - 45.5 % [facility] Comment:Testing performed by : [address], [address] Plt 339 150 - 400 K/cumm [facility] Comment:Testing performed by : [address], [address] MPV 11.6 9.1 - 12.3 fL [facility] Comment:Testing performed by : [address], [address] RBC 5.59(H) 3.90 - 5.20 M/cumm [facility] Comment:Testing performed by : [address], [address] MCV 82.1 81.3 - 96.4 fL [facility] Comment:Testing performed by : [address], [address] MCH 22.9(L) 27.1 - 33.3 pg [facility] Comment:Testing performed by : [address], [address] MCHC 27.9(L) 32.3 - 35.7 g/dL [facility] Comment:Testing performed by : [address], [address] RDW CV 19.7(H) 11.1 - 14.9 % [facility] Comment:Testing performed by : [address], [address] RDW SD 56.1(H) 35.7 - 48.1 fL [facility] Comment:Testing performed by : [address], [address] NRBC abs 0.00 0.00 - 0.01 K/cumm [facility] Comment:Testing performed by : [address], [address] Blood 10/15/2024 2:16 PM QUICK TECHNICIAN 10/15/2024 6:50 PM QUICK TECHNICIAN Wilson Rico MD LAB BLOOD ORDERABLES Final Result Performing Organization Address [facility] de Phone Number [place] [id number] [facility] [place] [address] * Albumin Creatinine Ratio, Urine (10/15/2024 2:16 PM QUICK TECHNICIAN) Albumin Ur <12.0 mg/L Comment: Interpretive Data No reference range established. Current interpretive data was last revised 2019. Testing performed by: [address] [address] Creatinine Ur 79.9 mg/dL DALE Comment: Interpretive Data No reference range established. Current interpretive data was last revised 2019. Testing performed by: [address] [address] Albumin Creatinine Ratio, Ur <15 1 - 29 mg/g [facility] Comment:Testing performed by : [address] [address] Urine 10/15/2024 2:16 PM QUICK TECHNICIAN 10/15/2024 6:50 PM QUICK TECHNICIAN Result [facility] Wilson Rico MD LAB URINE ORDERABLES Final Result Performing Organization Address [facility] de Phone Number [facility] [address] [facility] [place] [address] * (ABNORMAL) Hemoglobin A1c (10/15/2024 2:16 PM QUICK TECHNICIAN) Hgb A1C 7.4(H) 4.0 - 5.6 % Comment:Testing performed by : [address] [address] Estimated Average Glucose 166 mg/dL [facility] Comment: The ADA recommends reporting an estimated Average Glucose (eAG) with all Hemoglobin A1c results using the equation derived from a study of 507 normal and diabetic adults. Minority populations were underrepresented and children were not included. (Diabetes Care 31:4712-3019, 2008). The eAG is not equivalent to a fasting glucose. Testing performed by: [facility], [address] [place] [address]., [address] Blood 10/15/2024 2:16 PM QUICK TECHNICIAN 10/15/2024 6:50 PM QUICK TECHNICIAN Wilson Rico MD LAB BLOOD ORDERABLES Final Result [facility] [address] Department [place] [address] * (ABNORMAL) Lipid panel (10/15/2024 2:16 PM QUICK TECHNICIAN) Cholesterol 164 30 - 199 mg/dL Comment: [...] last revised on 2018. Testing performed by: [facility], [address] [place] [address]., [address] Triglycerides 278(H) <=149 mg/dL [facility] STYLES Comment: [...] last revised on 2018. Testing performed by: [facility], [address] [place] [address]., [address] HDL 44 >=40 mg/dL [facility] Comment: Interpretive [...] last revised on 2018. Testing performed by: [facility], [address] [place] [address]., [address] LDL, calculated 75 <=129 mg/dL [facility] Comment: [...] last revised on 2024. Testing performed by: [facility], [address] [place] [address], [place]., [address] Non-HDL Cholesterol 120 mg/dL [facility] Comment: Interpretive [...] last revised on 2018. Testing performed by: [facility], [address] [place] [address]., [address] Chol/HDL ratio 4 [facility] Comment:Testing performed by : [address] [address] Blood 10/15/2024 2:16 PM QUICK TECHNICIAN 10/15/2024 6:50 PM QUICK TECHNICIAN Wilson Rico MD LAB BLOOD ORDERABLES Final Result [address] Department [place] [address] * (ABNORMAL) Comprehensive metabolic panel (10/15/2024 2:16 PM QUICK TECHNICIAN) Sodium 139 135 - 145 mmol/L Comment:Testing performed by : [address] [address] Potassium, pl 4.5 3.3 - 4.9 mmol/L [facility] Comment:Testing performed by : [address] [address] Chloride 100 97 - 110 mmol/L [facility] Comment:Testing performed by : [address] [address] CO2 24 22 - 32 mmol/L [facility] Comment:Testing performed by : [address] [address] Anion gap 15 2 - 15 mmol/L [facility] Comment:Testing performed by : [address] [address] BUN 17 6 - 25 mg/dL [facility] Comment:Testing performed by : [address] [address] Creatinine 0.68 0.60 - 1.10 mg/dL [facility] Comment:Testing performed by : [address] [address] Glucose 121 70 - 199 mg/dL CERNER [...] was last revised 2022. Testing performed by: [facility], [address] [place] [address]., [address] Calcium 10.8(H) 8.5 - 10.3 mg/dL [facility] Comment:Testing performed by : [address] [address] Bilirubin, total 0.3 0.1 - 1.2 mg/dL [facility] Comment:Testing performed by : [address] [address] Protein, pl 8.2 6.5 - 8.5 g/dL [facility] Comment:Testing performed by : [address] [address] Albumin 4.6 3.5 - 5.0 g/dL [facility] Comment:Testing performed by : [address] [address] Alk phos 78 40 - 130 Units/L [facility] Comment:Testing performed by : [address], [address] ALT 26 7 - 45 Units/L [facility] Comment:Testing performed by : [address], [address] AST 37 10 - 45 Units/L [facility] Comment:Testing performed by : [address], [address] Blood 10/15/2024 2:16 PM QUICK TECHNICIAN 10/15/2024 6:50 PM QUICK TECHNICIAN Wilson Rico MD LAB [place] [address] [address] Department of Laboratories [place] [id number] * DIABETES EYE EXAM (03/24/2024) SCRIBED DIABETIC DILATED EYE EXAM Normal Narrative Luz Marina Johnston RN - 03/24/2024 Eye exam report located beneath Procedures Tab. us Historical Provider HEALTH MAINTENANCE Final Result * COLONOSCOPY (04/22/2020 7:15 AM CDT) Anatomical Region Laterality Modality Other Narrative Procedure Note Louis Parra MD - 04/22/2020 7:15 AM CDT [facility] Patient Name: Sandie Roche Procedure Date: 04/22/2020 7:15 AM Date of : 1945 Admit Type: Outpatient Age: 74 Gender: Female Attending MD: Louis Parra M.D. Room: [facility] ENDOSCOPY ROOM 2 Note Status: Finalized Patient [...] was passed under direct vision. The Colonoscope [id number] was introduced through the anusand advanced to [...] 7:15 AM Procedure Code(s): --- Professional --- 55964, Colonoscopy, flexible; with removal of tumor(s), polyp(s), or other lesion(s) by hot biopsy forceps Diagnosis Code(s): --- Professional --- D12.2, Benign neoplasm of ascending colon D12.4, Benign neoplasm of descending colon K64.9, Unspecified hemorrhoids Z86.010, Personal history of colonic polyps CPT copyright 2017 [employer]. All rights reserved. The codes documented in this report are preliminary and upon office clin asst reviewmay be revised to meet current compliance requirements. Recognized by the [place] [employer] for promoting quality in endoscopy Louis Parra MD ENDOSCOPY PROCEDURES Final Re sult from Last 3 Months or Most Recently Relevant to Health Maintenance Insurance [employer] MEDICARE ADVANTAGE Advance Directives For more information, please contact: [phone] Documents on File Type Date Recorded Patient Engineering Director Expl anation ADVANCE DIRECTIVE 06/16/2021 11:[address] [facility] er of Integration Software Developer-Medical * Full Code (Latest Code Status on [...] 7:48 AM 10/14/2019 2:31 PM Care Teams New Car Driver Relationship Specialty Start Date End Date Wilson Rico MD [address] [place] [address] PCP - General 11/24/16
--- OUTSIDE RECORDS SUMMARY | 2024-11-22 18:58 | XMS_ITS | Encounter Summary ---
Author Organization [facility] Address [facility] [place] [address] Care Team Providers Care Stud Setter Name Role Phone Wilson Rico MD Primary Care Provider [phone] Encounter Details Date Type Department Care Team (Late st Contact Info) Description 06/21/2021 Abstract [facility] [address] Ruben Saunders MA Social History Tobacco Use Types [...] LABORATORY Final Result * MAGNESIUM (06/15/2021) Pathologist [facility] MAGNESIUM 1.8 06/15/2021 us Doc [facility] Abstract LABORATORY Edited Resul t - Final * CK (CPK) (06/15/2021) Pathologist [facility] CPK 74 06/15/2021 us Doc [facility] Abstract LABORATORY Final Result * CBC (OUTSIDE LAB) (06/15/2021) Pathologist [facility] WBC 8.7 HGB 13.4 HCT 43.2 PLT 274 06/15/2021 us Doc [facility] Abstract LAB-OUTSIDE/ABSTRACTED Final Result * COMPREHENSIVE METABOLIC PANEL (06/15/2021) Pathologist [facility] SODIUM S/P/B 140 POTASSIUM S/P/B 3.5 CO2 [...] on filedocumented in this encounter Care Teams Stud Setter Relationship Specialty Start Date End Date Wilson Rico MD [address] [place] [address] PCP - General INTERNAL MEDICINE 06/20/21 documented as of this encounter
--- OUTSIDE RECORDS SUMMARY | 2024-11-22 18:58 | XMS_ITS | Encounter Summary ---
Author Organization [facility] Address [address] [facility] [place] [address] Care Team Providers Care Gusset Stitcher Name Role Phone Unavailable Primary Care Provider Unavailabl e Encounter Details Date Type Department Care Team (Late st Contact Info) Description 01/10/2021 Lab Requisition [facility] [address] [facility] [place] [address] Fadi Tavarez Jr., MD [address] [facility] [address] [place] [address] Social History Tobacco Use Types Packs/Day Years [...] AM CDT) Case Report Dermatopathology Report Case: [id number] Authorizing Provider: Fadi Tavarez Jr., MD Collected: 01/06/2021 03:33 AM Ordering Location: [place] [facility] Received: 01/10/2021 05:59 AM Pathologist: [...] shoulder.The specimen consists of an ellipse measuring [id number] and is oriented with the suture at [...] characteristic determined by the Dermatopathology Laboratory at [facility], directed by Dr. Waleska Bowman. These tests need not be, and therefore are not, approved by the [place] Food and Drug Administration. The tests are used for clinical purposes. Billing Codes Specimen Charges Stain Charges 61142 1 1 1:29 PM CDT DERMATOPATHOLOGY LABORATORY Embedded Images 1:29 PM CDT DERMATOPATHOLOGY LABORATORY Pathology/Cytolo gy TISSUE SPECIMEN FROM SKIN / Unknown 01/06/2021 3:33 AM CDT 01/10/2021 5:59 AM CDT Fadi Tavarez Jr., MD LAB - PATHOLOGY /CYTOLOGY ORDERABLES DERMATOPATHOLOGY LABORATORY [facility] - Department of Dermatology [facility] [address] [place] [address], [address] [phone] documented in this encounter Visit Diagnoses Not on filedocumented in this encounter
--- OUTSIDE RECORDS SUMMARY | 2024-11-22 18:58 | XMS_ITS | Encounter Summary ---
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
--- OUTSIDE RECORDS SUMMARY | 2024-11-22 18:58 | XMS_ITS | Clinical Summary ---
Author Organization [facility] Address [address] [place] [address] Care Team Providers Care Tipping Machine Operator Name Role Phone Wilson Rico MD Primary Care Provider Allergies Active Allergy Reactions Criticality Noted Date [...] (gastroesophageal reflux disease) Essential hypertension Atrial fibrillation ([facility]) Hyperlipidemia V tach ([facility]) Diabetes ([facility]) Wide-complex tachycardia Family History Medical History Relation [...] topic Meningococcal Vaccine Aged Out No abraham myonr eligible based on patient's age to complete this topic RSV Immunizations Under 20 Months Aged Out No longer eligible based on patient's age to complete this topic Insurance [employer] Care Teams Tipping Machine Operator Relationship Specialty Start Date End Date Wilson Rico MD [address] [place] [address] PCP - General INTERNAL MEDICINE 06/20/21
--- OUTSIDE RECORDS SUMMARY | 2024-11-22 18:58 | XMS_ITS | Encounter Summary ---
Author Organization [facility] Address [address] [place] [address] Care Team Providers Care Functional Consultant Name Role Phone Unavailable Primary Care Provider Unavailabl e Encounter Details Date Type Department Care Team (Late st Contact Info) Description 11/19/2020 Lab Requisition [facility] [address] [place] [address] Fadi Tavarez Jr., MD [address] [place] [address] Social History Tobacco Use Types Packs/Day Years [...] AM CDT) Case Report Dermatopathology Report Case: [id number] Authorizing Provider: Fadi Tavarez Jr., MD Collected: 11/18/2020 12:00 AM Ordering Location: [facility] Received: 11/19/2020 01:01 PM Pathologist: Nancy Alegre MD Specimens: A) - Skin, right superior upper back B) - Skin, right posterior shoulder C) - Skin, left posterior shoulder D) - Skin, left medial superior chest E) - Skin, left radial dorsal hand 12:28 PM [facility] Final Diagnosis Specimen A. SKIN, right superior upper back: BENIGN VERRUCOUS KERATOSIS (L82.1) Specimen B. SKIN, right posterior shoulder: BENIGN VERRUCOUS KERATOSIS, INFLAMED (L82.1) Specimen C. SKIN, left posterior shoulder: BASAL CELL CARCINOMA, NODULAR TYPE (C44.619) Specimen D. SKIN, left medial superior chest: SEBORRHEIC KERATOSIS, MACULAR (L82.1) Specimen E. SKIN, left radial dorsal hand: SEBORRHEIC KERATOSIS, MACULAR (L82.1) 12:28 PM [facility] Clinical History A-B: Inflamed seborrheic keratosis vs verruca vulgaris vs basal cell carcinoma vs vann's disease. C: Basal cell carcinoma. D-E: Melanoma vs pigmented seborrheic keratosis vs junctional melanocytic nevus vs pigmented basal cell carcinoma vs atypical seborrheic keratosis. 12:28 PM [facility] Gross Description Specimen A: Received is one formalin filled container labeled with the patient's name and designated right superior upper back. The specimen consists of a shave biopsy measuring [id number], bisected. Jar 0. Specimen B: Received is one formalin filled container labeled with the patient's name and designated right posterior shoulder. The specimen consists of a shave biopsy measuring [id number]. Jar 0. Specimen C: Received is one formalin filled container labeled with the patient's name and designated left posterior shoulder. The specimen consists of a shave biopsy measuring 8h3y4lj. Jar 0. Specimen D: Received is one formalin filled container labeled with the patient's name and designated left medial superior chest. The specimen consists of a shave biopsy measuring [id number]. Jar 0. Specimen E: Received is one formalin filled container labeled with the patient's name and designated left radial dorsal hand. The specimen consists of a shave biopsy measuring [id number]. Jar 0. 12:28 PM [facility] Microscopic Description Specimen A. SKIN, [...] characteristic determined by the Dermatopathology Laboratory at [facility], directed by Dr. Waleska Bowman. These tests need not be, and therefore are not, approved by the [place] Food and Drug Administration. The tests are used for clinical purposes. Billing Codes Specimen Charges Stain Charges 82011 18248 [id number] [id number] 1 1 1 1 1 12:28 PM [...] LAB - PATHOLOGY /CYTOLOGY ORDERABLES DERMATOPATHOLOGY LABORATORY [facility] - Department of Dermatology [facility] [address] [place] [address], [address] [phone] documented in this encounter Visit Diagnoses Not on filedocumented in this encounter
--- OUTSIDE RECORDS SUMMARY | 2024-11-22 18:58 | XMS_ITS | Continuity of Care Document ---
Author Organization [facility] Address [address] [place] [address] Phone Care Team Providers Care Doughnut Glazier Name Role Phone Sonia KELLI, Sarah Unavailable [...] Copied on Encounter Office/outpa tient Visit, Est [facility], [address], [place], [place], [address], [place] tel:[phone] [place] Complete Exam (chief complaint) Insufficiency of tear film of both eyesType 2 diabetes mellitus without complicationsP seudophakia of both eyes 4 Sonia OD Sarah. [address], [address], [place], [place], [address], [place]. tel:[phone] Catrina Watt MD.Sravani Sanchez MD.Referri ng Provider: Ector Neal, [address] [place] [address] [address] [facility] [address], [place], [address] . tel:[phone] [facility], [address] [place] [address] [address], [place], [place], [address], [place] tel:[phone] [place] Professional diabetic eye exam (chief complaint) Presence of intraocular lensType 2 diabetes mellitus without complicationsD rusen (degenerative) of macula, right eye Nov 1 Bullock Arash. [address] [facility], [address], [place], [place], [address], [place]. tel:[phone] Specialist : Catrina Watt MD, [address] [facility] [address], [place], [address]. tel:[phone] cialist: Sravani Sanchez MD, [address] [facility] [address], [place], [address]. tel:[phone] erring Provider: Ector Neal, [facility] [address] [facility] [address], [place], [address] . tel:[phone] [facility], [address] [place] [address] [address], [place], [place], [address], [place] tel:[phone] [place] Professional Complete Exam (chief complaint) Type 2 diabetes mellitus without complicationsP seudophakia of both eyes Sep-0 0 Verona Barney. [facility] [address] [facility], [address], [place], [place], [address], [place]. tel:[phone] Specialist : Catrina Watt MD, [address] [facility] [address], [place], [address]. tel:[phone] cialist: Sravani Sanchez MD, [address] [facility] [address], [place], [address]. tel:[phone] cialist:, [address] [facility] [address], [place], [address]. tel:[phone] erring Provider: Ector Neal, [facility] [address], [place], [address] . tel:[phone] [facility], [address] [place], [place] [address] [address], [place], [place], [address], [place] tel:[phone] [place] Professional Diabetic eye exam (chief complaint) Type 2 diabetes mellitus without complicationsP resence of intraocular lens Apr- 0 9 Verona Barney. [facility] [address], [address], [place], [place], [address], [place]. tel:[phone] Referring Provider: Ector Neal, [facility] [address], [place], [address] . tel:[phone] [facility], [facility] [address], [place], [place], [address], [place] [phone] [place] No Information 9 Kobe Antoine. [address] [facility], [address], [place], [place], [address], [place]. tel:[phone] Office/outpa tient Visit, [facility], [facility] [address], [place], [place], [address], [place] [phone] SEC [place] Professional Blurry/dec reased vision (chief complaint) Type 2 diabetes mellitus without complicationsP resence of intraocular lens Phu- 8 Verona Barney. [facility] [address], [address], [place], [place], [address], [place]. tel:[phone] Referring Provider: Ector Neal, [facility] [address], [place], [address] . tel:[phone] [facility], [facility] [address], [place], [place], [address], [place] [phone] [place] Complete Exam (chief complaint) No Information Mar-0 7 Verona Barney. [facility] [address], [address], [place], [place], [address], [place]. tel:[phone] Referring Provider: Ector Neal, [facility] [address], [place], [address] . tel:[phone] [facility], [address] [place] [address] [address], [place], [place], [address], [place] [phone] [place] Professional No Information Apr-2 1-201 7 Kobe Antoine. [address] [facility], [address], [place], [place], [address], . tel:[phone] [facility], [facility] [address], [place], [place], [address], [phone] SEC [place] LEONIE Professional blurry vision (chief complaint) No Information Dec-1 5-201 5 Guy Khalil. [address] [facility], [address], [place], [place], [address], [place]. tel:[phone] Referring Provider: Reim Neal, [address] [address], [place], [address] . tel:[phone] [facility], [facility] [address], [place], [place], [address], [place] [phone] SEC [place] Professional No Information Nov-3 0-201 5 Josekrubio Khalil. [address] [facility], [address], [place], [place], [address], [place]. tel:[phone] Office/outpa tient Visit, Est [facility], [address] [place], [place] [address], [place], [place], [address], [place] [phone] SEC Deepika Galindo No Information Oct-0 8-201 0 Verona Barney. [facility] [address], [address], [place], [place], [address], [place]. tel:[phone] [facility], [address], [place], [place], [address], tel:[phone] SEC [place] Brain Uriel No Information 1-201 0 Brighton Ector. [address], [address], [place], [place], [address], [place]. tel:[phone] [facility], [address], [place], [place], [address], [place] [phone] SEC [place] Professional No Information 4- 0 Guy Khalil. [address] [facility], [address], [place], [place], [address], [place]. tel:[phone] [facility], [address], [place], [place], [address], [phone] SEC Deepika Trevino No Information 3-201 0 Verona Barney. [address], [address], [place], [place], [address], [place]. tel:[phone] Family History Family Member Type Diagnosis Age At Onset No Information Payers Payer name Insurance type Covered libertarian ID Authoriza tijimenez(s) [employer] Md[employer] Gold Adv [employer] CI [id number] Social History Type Description Quantity Date Captured [...] [place]. Optional spec Rx will have front services agent give at checkout if she wants to [...]
--- OUTSIDE RECORDS SUMMARY | 2024-11-22 18:58 | XMS_ITS | Clinical Summary ---
Author Organization [facility] [address] Address [address] [place] [address] Phone Care Team Providers Care Radio Board Operator Name Role Phone JackyWilson Josr HARVEY Primary Care Provider [phone]- [phone] Allergies Active Allergy Reactions Criticality Noted Date [...] 12/27/2023 Assessment & Plan (10/15/2024 2:14 PM DENTAL TREATMENT COORDINATOR): WITH CO MORBISITIES INCLUDING DIABETES/ HTN AND [...] 01/31/2023 Assessment & Plan (10/15/2024 2:15 PM DENTAL TREATMENT COORDINATOR): GOAL BP IS 130/80 OR UNDER LOW NA DIET Heart valve disorder 01/31/2023 Obesity (BMI 30-39.9) 01/31/2023 Allergic reaction 01/01/2023 Assessment & Plan (01/01/2023 4:19 PM CDT): This was an acute event 911 called. Epi pen 0.3mg injected into left thigh Transferred to [facility] on o2 3l/nc Abdominal wall bulge 04/26/2022 Nonsustained ventricular tachycardia 06/16/2021 Atrial fibrillation 06/15/2021 Clinical diagnosis of COVID-19 12/03/2020 Sciatica of right side 07/30/2020 Assessment & Plan (07/30/2020 4:04 PM DENTAL TREATMENT COORDINATOR): Consulted with Dr. Rico today. He advises 40mg IM shot depomedrol. X-rays of lumbar spine and left hip. Referral to PT. Patient is in agreement with the plan, however, she would like to wait on PT, and see how she feels next week after having the shot. Personal history of colonic polyps 03/10/2020 Overview (03/10/2020): Added automatically from request for surgery [id number] Routine physical examination 03/10/2020 Overview (03/10/2020): Added automatically from request for surgery [id number] Assessment & Plan (04/07/2024 4:35 PM CDT): [...] 09/20/2018 Assessment & Plan (10/15/2024 2:15 PM DENTAL TREATMENT COORDINATOR): DILATED EYE EXAM IS NL FOOT EXAM [...] basis. Assessment & Plan (08/10/2022 1:52 PM DENTAL TREATMENT COORDINATOR): Diagnosed around 2015 Control : deterioration in [...] basis. 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 We will order at [facility]. We discussed symptom management with rest, fluids, and tylenol. She will continue albuterol inhaler as needed. We will send rebecca canseco for cough. She was instructed should symptoms worsen or persist that she should go to ER. Patient voiced understanding will call with any further issues or concerns. Epigastric pain 10/10/2019 06/16/2021 Overview (10/10/2019): Added automatically from request for surgery [id number] Iron deficiency anemia 10/08/201406/16 Overview (11/30/2016): Iron deficiency anemia due to chronic blood loss Supraventricular tachycardia (CMS/HCC) 01/10/2014 06/16/2021 Overview (11/30/2016): Supraventricular tachycardia Adiposity 01/10/2014 06/16/2021 Overview (12/01/2016): Obesity Encounters Date Type Department Care Team Description 11/22/2024 3:15 PM CDT Office Visit [facility] [place] [address] [place] [address] Cynthia Ellington NP Olecranon bursitis of left elbow (Primary Dx); Nausea 11/19/2024 1:00 PM CDT Ancillary Procedure [facility] [address] [place] [phone] Breast cancer screening by mammogram 11/18/2024 [facility]phone [facility] [address] [place] [address] Wilson Rico MD Refill 10/27/2024 1:00 PM DENTAL TREATMENT COORDINATOR Office Visit [facility] [address] [place] [phone] Roxana Vasquez NP Type 2 diabetes mellitus without complication, without long-term current use of insulin (HCC) (Primary Dx); Hypertension associated with type 2 diabetes mellitus (HCC); Hyperlipidemia associated with type 2 diabetes mellitus (HCC); Class 2 severe obesity due to excess calories with serious comorbidity and body mass index (BMI) of 38.0 to 38.9 in adult (HCC) 10/16/2024 Telephone [facility] [address] [place] [address] Wilson Rico MD 10/15/2024 2:10 PM DENTAL TREATMENT COORDINATOR Lab [facility] [address] [place] [phone] Type 2 diabetes mellitus with hyperglycemia, without long-term current use of insulin (HCC); Primary hypertension 10/15/2024 1:30 PM DENTAL TREATMENT COORDINATOR [facility] [address] [place] [address] Wilson Rico MD Type 2 diabetes mellitus [...] current use of insulin (HCC) 10/13/2024 Telephone [facility] [address] [place] [address] Wilson Rico MD 08/25/2024 Telephone [facility] [address] [place] [address] Wilson Rico MD Referral Request from Last [...] on file Legal Sex Female 1:01 AM DENTAL TREATMENT COORDINATOR Gender Identity Not on file Sexual Orientation [...] mammogram POCT GLUCOSE Routine 10/27/2024 12:56 PM DENTAL TREATMENT COORDINATOR Type 2 diabetes mellitus without complication, without long-term current use of insulin (HCC) EGFR Routine 10/15/2024 2:16 PM DENTAL TREATMENT COORDINATOR Primary hypertension DIFFERENTIAL AUTO Routine 10/15/2024 2:1 6 PM DENTAL TREATMENT COORDINATOR Primary hypertension CBC WITH AUTO DIFFERENTIAL Routine 10/15/2024 2:16 PM DENTAL TREATMENT COORDINATOR Primary hypertension COMPREHENSIVE METABOLIC PANEL Routine 10/15/2024 2:16 PM DENTAL TREATMENT COORDINATOR Primary hypertension LIPID PANEL Routine 10/15/2024 2:16 PM DENTAL TREATMENT COORDINATOR Primary hypertension HEMOGLOBIN A1C Routine 10/15/2024 2:16 PM DENTAL TREATMENT COORDINATOR Type 2 diabetes mellitus with hyperglycemia, without long-term current use of insulin (HCC) ALBUMIN CREATININE RATIO, URINE Routine 10/15/2024 2:16 PM DENTAL TREATMENT COORDINATOR Type 2 diabetes mellitus with hyperglycemia, without [...] Result * POCT glucose (10/27/2024 12:56 PM DENTAL TREATMENT COORDINATOR) Glucose Blood, POC 139 mg/dL Blood 10/27/2024 12:5 6 PM DENTAL TREATMENT COORDINATOR Roxana Vasquez NP POINT OF CARE TEST ORDERABLES F inal Result * eGFR (10/15/2024 2:16 PM DENTAL TREATMENT COORDINATOR) eGFR 90 >=60 mL/min/1. 73 m2 Comment: [...] was last reviewed 2021. Testing performed by: [facility], [address] [place] [address], [place]., [address] Blood 10/15/2024 2:16 PM DENTAL TREATMENT COORDINATOR 10/15/2024 7:11 PM DENTAL TREATMENT COORDINATOR Wilson Rico MD LAB BLOOD ORDERABLES Final Result [facility] [id number] [place] [address] [place] [address] * (ABNORMAL) Differential, auto (10/15/2024 2:16 PM DENTAL TREATMENT COORDINATOR) Neutrophil abs 5.5 1.5 - 6.5 K/cumm Comment:Testing performed by : [facility], [address] [place] [address]., [address] Imm gran abs 0.1 0.0 - 0.1 K/cumm CERNER Comment:Testing performed by : [facility], [address] [place] [address]., [address] Lymphocyte abs 3.5(H) 0.8 - 3.3 K/cumm CERNER Comment:Testing performed by : [facility], [address] [place] [address]., [address] Monocyte abs 0.8 0.2 - 0.8 K/cumm CERNER Comment:Testing performed by : [address] [address] Eosinophil abs 0.6(H) 0.0 - 0.5 K/cumm CERNER Comment:Testing performed by : [address] [address] Basophil abs 0.1 0.0 - 0.1 K/cumm CERNER Comment:Testing performed by : [address] [address] Neutrophil pct 52.3 % CERNER Comment: Interpretive Data Percent cell count reference ranges are not reported, since discordance with absolute values may lead to misinterpretation of CBC data. Current Interpretive Data was last revised on 2017. Testing performed by: [facility], [address] [place] [address]., [address] Imm gran pct 0.5 % CERNER Comment: Interpretive Data Percent cell count reference ranges are not reported, since discordance with absolute values may lead to misinterpretation of CBC data. Current Interpretive Data was last revised on 2017. Testing performed by: [facility], [address] [place] [address]., [address] Lymphocyte pct 33.5 % CERNER Comment: Interpretive Data Percent cell count reference ranges are not reported, since discordance with absolute values may lead to misinterpretation of CBC data. Current Interpretive Data was last revised on 2017. Testing performed by: [address] [address] Monocyte pct 7.7 % [facility] Comment: Interpretive Data Percent cell count reference ranges are not reported, since discordance with absolute values may lead to misinterpretation of CBC data. Current Interpretive Data was last revised on 2017. Testing performed by: [address] [address] Eosinophil pct 5.5 % [facility] Comment: Interpretive Data Percent cell count reference ranges are not reported, since discordance with absolute values may lead to misinterpretation of CBC data. Current Interpretive Data was last revised on 2017. Testing performed by: [address] [address] Basophil pct 0.5 % [facility] Comment: Interpretive Data Percent cell count reference ranges are not reported, since discordance with absolute values may lead to misinterpretation of CBC data. Current Interpretive Data was last revised on 2017. Testing performed by: [address], [address] Blood 10/15/2024 2:16 PM DENTAL TREATMENT COORDINATOR 10/15/2024 6:50 PM DENTAL TREATMENT COORDINATOR us Wilson Rico MD LAB BLOOD ORDERABLES Final Result [facility] [address] [place] [address] * (ABNORMAL) CBC with auto differential (10/15/2024 2:16 PM DENTAL TREATMENT COORDINATOR) WBC 10.5(H) 3.8 - 9.9 K/cumm Comment:Testing performed by : [address] [address] Hgb 12.8 11.9 - 15.5 g/dL [facility] Comment:Testing performed by : [address], [address] Hct 45.9(H) 35.6 - 45.5 % CERNER CH Comment:Testing performed by : [facility], [address] [place] [address], [address] Plt 339 150 - 400 K/cumm CERNER CH Comment:Testing performed by : [address], [address] MPV 11.6 9.1 - 12.3 fL CERNER Comment:Testing performed by : [address], [address] RBC 5.59(H) 3.90 - 5.20 M/cumm CERNER CH Comment:Testing performed by : [address], [address] MCV 82.1 81.3 - 96.4 fL CERNER Comment:Testing performed by : [address], [address] MCH 22.9(L) 27.1 - 33.3 pg CERNER Comment:Testing performed by : [address], [address] MCHC 27.9(L) 32.3 - 35.7 g/dL CERNER Comment:Testing performed by : [address], [address] RDW CV 19.7(H) 11.1 - 14.9 % CERNER Comment:Testing performed by : [address], [address] RDW SD 56.1(H) 35.7 - 48.1 fL CERNER Comment:Testing performed by : [address], [address] NRBC abs 0.00 0.00 - 0.01 K/cumm CERNER Comment:Testing performed by : [address], [address] Blood 10/15/2024 2:16 PM DENTAL TREATMENT COORDINATOR 10/15/2024 6:50 PM DENTAL TREATMENT COORDINATOR us Wilson Rico MD LAB BLOOD ORDERABLES Final Result [address] Department [place] [address] * Albumin Creatinine Ratio, Urine (10/15/2024 2:16 PM DENTAL TREATMENT COORDINATOR) Pathologist [facility] Albumin Ur <12.0 mg/L Comment: Interpretive Data No reference range established. Current interpretive data was last revised 2019. Testing performed by: [address] [address] Creatinine Ur 79.9 mg/dL [facility] Comment: Interpretive Data No reference range established. Current interpretive data was last revised 2019. Testing performed by: [address] [address] Albumin Creatinine Ratio, Ur <15 1 - 29 mg/g [facility] Comment:Testing performed by : [address] [address] Urine 10/15/2024 2:16 PM DENTAL TREATMENT COORDINATOR 10/15/2024 6:50 PM DENTAL TREATMENT COORDINATOR us Wilson Rico MD LAB URINE ORDERABLES Final Result [address] Department [place] [address] * (ABNORMAL) Hemoglobin A1c (10/15/2024 2:16 PM DENTAL TREATMENT COORDINATOR) Pathologist [facility] Hgb A1C 7.4(H) 4.0 - 5.6 % Comment:Testing performed by : [address] [address] Estimated Average Glucose 166 mg/dL [facility] Comment: The ADA recommends reporting an estimated Average Glucose (eAG) with all Hemoglobin A1c results using the equation derived from a study of 507 normal and diabetic adults. Minority populations were underrepresented and children were not included. (Diabetes Care 31:4654-2668, 2008). The eAG is not equivalent to a fasting glucose. Testing performed by: [address] [address] Blood 10/15/2024 2:16 PM DENTAL TREATMENT COORDINATOR 10/15/2024 6:50 PM DENTAL TREATMENT COORDINATOR us Wilson Rico MD LAB BLOOD ORDERABLES Final Result [facility] [address] [place] [address] [place] [address] * (ABNORMAL) Lipid panel (10/15/2024 2:16 PM DENTAL TREATMENT COORDINATOR) Cholesterol 164 30 - 199 mg/dL Comment: [...] last revised on 2018. Testing performed by: [address] [address] Triglycerides 278(H) <=149 mg/dL [facility] Comment: Interpretive [...] last revised on 2018. Testing performed by: [address] [address] HDL 44 >=40 mg/dL [facility] Comment: Interpretive [...] last revised on 2018. Testing performed by: [address] [address] LDL, calculated 75 <=129 mg/dL [facility] Comment: [...] last revised on 2024. Testing performed by: [address] [address] Non-HDL Cholesterol 120 mg/dL [facility] Comment: Interpretive [...] last revised on 2018. Testing performed by: [address] [place]., [address] Chol/HDL ratio 4 [facility] Comment:Testing performed by : [address] [address] Blood 10/15/2024 2:16 PM DENTAL TREATMENT COORDINATOR 10/15/2024 6:50 PM DENTAL TREATMENT COORDINATOR Wilson Rico MD LAB BLOOD ORDERABLES Final Result [address] Department [place] [address] * (ABNORMAL) Comprehensive metabolic panel (10/15/2024 2:16 PM DENTAL TREATMENT COORDINATOR) Sodium 139 135 - 145 mmol/L Comment:Testing performed by : [address] [address] Potassium, pl 4.5 3.3 - 4.9 mmol/L [facility]NER Comment:Testing performed by : [address] [address] Chloride 100 97 - 110 mmol/L CERNER Comment:Testing performed by : [address] [address] CO2 24 22 - 32 mmol/L CERNER Comment:Testing performed by : [address] [address] Anion gap 15 2 - 15 mmol/L [facility] Comment:Testing performed by : [address] [address] BUN 17 6 - 25 mg/dL CERNER Comment:Testing performed by : [address] [address] Creatinine 0.68 0.60 - 1.10 mg/dL CERNER Comment:Testing performed by : [address] [address] Glucose 121 70 - 199 mg/dL [facility] Comment: Interpretive Data Fasting glucose >/= 126 [...] was last revised 2022. Testing performed by: [facility], [address] [place] [address]., [address] Calcium 10.8(H) 8.5 - 10.3 mg/dL CERNER CH Comment:Testing performed by : [address] [address] Bilirubin, total 0.3 0.1 - 1.2 mg/dL CERNER CH Comment:Testing performed by : [facility], [address] [place] [address]., [address] Protein, pl 8.2 6.5 - 8.5 g/dL CERNER CH Comment:Testing performed by : [facility], [address] [place] [address]., [address] Albumin 4.6 3.5 - 5.0 g/dL CERNER CH Comment:Testing performed by : [address], [address] Alk phos 78 40 - 130 Units/L C[facility] CH Comment:Testing performed by : [address], [address] ALT 26 7 - 45 Units/L C[facility] CH Comment:Testing performed by : [address] [address] AST 37 10 - 45 Units/L C[facility] CH Comment:Testing performed by : [address] [address] Blood 10/15/2024 2:16 PM DENTAL TREATMENT COORDINATOR 10/15/2024 6:50 PM DENTAL TREATMENT COORDINATOR Wilson Rico MD LAB BLOOD ORDERABLES Final Result [address] Department [place] [address] * DIABETES EYE EXAM (03/24/2024) SCRIBED DIABETIC DILATED EYE EXAM Normal Narrative Luz Marina Johnston RN - 03/24/2024 Eye exam report located beneath Procedures Tab. us Historical Provider HEALTH MAINTENANCE Final Result * COLONOSCOPY (04/22/2020 7:15 AM CDT) Anatomical Region Laterality Modality Other Narrative Procedure Note Louis Parra MD - 04/22/2020 7:15 AM CDT [facility] Patient Name: Sandie Roche Procedure Date: 04/22/2020 7:15 AM Date of : 1945 Admit Type: Outpatient Age: 74 Gender: Female Attending MD: Louis Parra M.D. Room: [facility] ENDOSCOPY ROOM 2 Note Status: [...] was passed under direct vision. The Colonoscope [id number] was introduced through the anusand advanced to [...] 7:15 AM Procedure Code(s): --- Professional --- [address], Colonoscopy, flexible; with removal of tumor(s), polyp(s), or other lesion(s) by hot biopsy forceps Diagnosis Code(s): --- Professional --- D12.2, Benign neoplasm of ascending colon D12.4, Benign neoplasm of descending colon K64.9, Unspecified hemorrhoids Z86.010, Personal history of colonic polyps CPT copyright 2017 [employer]. All rights reserved. The codes documented in this report are preliminary and upon test engine operator reviewmay be revised to meet current compliance requirements. Recognized by the [place] [employer] for promoting quality in endoscopy Louis Parra MD ENDOSCOPY PROCEDURES Final Re sult from Last 3 Months or Most Recently Relevant to Health Maintenance Insurance [facility] MEDICARE ADVANTAGE [facility] MEDICARE [facility] Address: [address] [place] [address] [facility] Address: [address] [place] [address] [facility] Address: [facility] [id number] [place] [address] [employer] MEDICARE ADVANTAGE Advance Directives For more information, please contact: [phone] Documents on File Type Date Recorded Patient Security Control Center Operator Expl anation ADVANCE DIRECTIVE 06/16/2021 11:46 AM Pow er of Artificial [employer] * Full Code (Latest Code Status on [...] 7:48 AM 10/14/2019 2:31 PM Care Teams Radio Board Operator Relationship Specialty Start Date End Date Wilson Rico MD [address] [place] [address] PCP - General 11/24/16
--- OUTSIDE RECORDS SUMMARY | 2024-11-22 18:58 | XMS_ITS | Encounter Summary ---
Author Organization [facility] Address [address] [place] [address] Phone Care Team Providers Care Student Development Advisor Name Role Phone Wilson Rico MD Primary Care Provider [phone]- [phone] Encounter Details Date Type Department Care Team (Late st Contact Info) Description 06/15/2021 Orders Only [facility] [address] [place] [address] Scanning, Provider Social History Tobacco [...] on file Legal Sex Female 1:01 AM RES COUNSELOR Gender Identity Not on file Sexual Orientation [...] COVID: Suspected 08/10/2023 08/10/2023 08/10/2023 2:31 PM RES COUNSELOR documented as of this encounter Care Teams Student Development Advisor Relationship Specialty Start Date End Date Wilson Rico MD [address] [place] [address] PCP - General 11/24/16 documented as of this encounter
--- OUTSIDE RECORDS SUMMARY | 2024-11-22 18:58 | XMS_ITS | Encounter Summary ---
Author Organization [facility] Address [address] [place] [address] Phone Care Team Providers Care Line Maintenance Name Role Phone Wilson Rico MD Primary Care Provider [phone]- [phone] Encounter Details Date Type Department Care Team (Late st Contact Info) Description 08/08/2021 Orders Only [facility] [address] [place] [address] Scanning, Provider Social History Tobacco [...] on file Legal Sex Female 1:01 AM SOCK DRIER Gender Identity Not on file Sexual Orientation [...] COVID: Suspected 08/10/2023 08/10/2023 08/10/2023 2:31 PM SOCK DRIER documented as of this encounter Care Teams Line Maintenance Relationship Specialty Start Date End Date Wilson Rico MD [address] [place] [address] PCP - General 11/24/16 documented as of this encounter
--- NOTE | 2024-11-22 19:10 | ED_ITS ---
HPI - Extremity Injury (Upper) General Chief Complaint: Extremity Injury, Upper Stated Complaint: Left elbow pain/warm/swollen, N/dizziness Time Seen by Provider: 11/22/24 18:36 History of Present Illness HPI narrative: 79-year-old female presenting to the emergency department for left elbow pain and swelling. She woke up with a left elbow that was pain and swelling. She also states she has been feeling generalized weakness and having some nausea after starting Ozempic last month. Denies any nauseousness presently no vomiting. No diarrheal illness. No abdominal pain or bloating. No trauma that she remembers. She has full range of motion of the extremity. She went to urgent care and was referred to the emergency depart for laboratory studies. No recent injuries or illnesses. No bug bites or scratches that she is aware of. Related Data Home Medications ?Medication ?Instructions ?Recorded ?Confirmed ?Last Taken ?Type duloxetine 60 mg capsule,delayed 60 mg PO DAILY 06/15/21 11/01/23 Unknown History release empagliflozin 10 mg tablet 10 mg PO DAILY 06/15/21 11/01/23 Unknown History (Jardiance) metformin 1,000 mg tablet 1,000 mg PO DAILY 06/15/21 11/01/23 Unknown History metoprolol tartrate 50 mg tablet 50 mg PO DAILY 06/15/21 11/01/23 Unknown History omeprazole 20 mg capsule,delayed 20 mg PO DAILY 06/15/21 11/01/23 Unknown History release simvastatin 20 mg tablet 20 mg PO DAILY 06/15/21 11/01/23 Unknown History triamterene 37.5 37.5 tablet PO DAILY 06/15/21 11/01/23 Unknown History mg-hydrochlorothiazide 25 mg tablet Allergies Allergy/AdvReac Type Severity Reaction Status Date / Time lisinopril Allergy Intermediate Cough Verified 11/22/24 16:38 codeine AdvReac Nausea Verified 11/22/24 16:38 Review of Systems 2 Review of Systems: As reviewed above in HPI COUNTS INCLUDE 234 BEDS AT THE [facility] Past Medical History Medical History (Updated 11/22/24 @ 20:08 by Alhaji Ching MD) HTN (hypertension) Social History Social History Smoking status: Never smoker Second hand tobacco smoke exposure: No Alcohol intake: never Substance use: never Substance use type: does not use Do You Feel Safe in your Home?: Yes Lack of Transportation: No Lack of Food: Never True Current Housing: I Have Housing Concerned About Future Housing: No Difficulty Paying Gas/Electric Bills: No Difficulty Paying for Meds: No Currently Unemployed: No Education: Trade/Vocational Certificate Difficulty w/ Childcare or Family Care: No Spiritual care concerns: No Exam 2 Narrative: GENERAL: [Well-appearing, well-nourished, and in no acute distress.] HEAD: [Normocephalic, atraumatic.] EYES: [PERRLA and EOMI.] ENT: Nares clear, no rhinorrhea or epistaxis. Mucous membranes moist. NECK: Supple. CHEST: [Clear to auscultation. No respiratory distress.] HEART: [Regular rate and rhythm]. No murmur heard. [Normal peripheral pulses.] ABDOMEN: [Soft, nondistended], [nontender], [No rigidity or guarding] EXTREMITIES: Normal range of motion. The left elbow has a bursitis evident, no restricted range of motion, no tenderness with palpation, no overlying warmth or wounds, no drainage, no weeping, no purulence. Distal neurovascular intra intact. Good strength. SKIN: Warm, dry, no rash. NEURO: [No focal deficits]. Alert and oriented [x3.] PSYCH: [Normal mood and affect.] Course Vital Signs Vital signs: Vital Signs Temperature 37.0 C 11/22/24 16:42 Pulse Rate 87 11/22/24 16:42 Respiratory Rate 18 11/22/24 16:42 Blood Pressure 125/72 11/22/24 16:42 Pulse Oximetry 96 11/22/24 16:42 Temperature 37.0 C 11/22/24 16:42 Pulse Rate 89 11/22/24 18:52 Respiratory Rate 20 11/22/24 18:52 Blood Pressure 134/91 H 11/22/24 18:52 Pulse Oximetry 96 11/22/24 18:52 MDM - Extremity Injury (Upper) MDM Narrative Medical decision making narrative: 79-year-old female presenting with left elbow bursitis symptoms as well as nausea and generalized weakness ever since she started Ozempic last month. She is otherwise well-appearing, not in any acute distress, vital signs reassuring without any fever, tachycardia, hypoxia, tachypnea or blood pressure elevations. Her left elbow does have some swelling consistent with bursitis but it is nontender, no overlying skin changes concerning for septic bursitis. No restricted range of motion, fever or tachycardia suspicion for any joint involvement. No trauma or injury. X-rays left elbow were obtained and laboratory studies ordered. She was given Toradol for analgesia. Patient's elbow x-ray shows signs of bursitis but no fractures or supracondylar injury, no effusions. Chest x-ray without any findings. Laboratory studies do show a small white count of 16.8 consistent with the inflammatory process of bursitis, no signs of active infection in the skin I do not suspect septic bursitis. We will treat this with a short course of oral anti-inflammatory measures and she has a close outpatient primary care provider next week. She was given return precautions and felt comfortable with discharge at this time. Sent home with Toradol and ibuprofen. Medical Records Attestation: I reviewed the patient's medical records. Lab Data Attestation: I reviewed the patient's lab results. 11/22/24 19:06 11/22/24 19:06 Labs: Lab Results 11/22/24 Range/Units 19:06 WBC 16.8 H (4.5-10.0) K/mm3 RBC 5.58 H (4.2-5.4) M/mm3 Hgb 13.0 (12.0-15.0) g/dL Hct 43.8 (37.0-47.0) % MCV 78.5 L (80-100) fl MCH 23.3 L (26-34) pg MCHC 29.7 L (32-36) g/dl RDW 19.8 H (11.5-14.5) % Plt Count 307 (150-375) k/mm3 MPV 11.1 H (7.4-10.4) fl Immature Gran % (Auto) 0.4 (0-0.5) % Neut % (Auto) 59.4 (45.5-73.1) % Lymph % (Auto) 21.4 (18.3-44.2) % [place] % (Auto) 6.7 (2.6-8.5) % Eos % (Auto) 11.7 H (0-4.4) % Baso % (Auto) 0.4 (0.2-1.2) % Lymph # (Auto) 3.60 H (0.9-3.2) K/mm3 [place] # (Auto) 1.1 H (0.1-0.6) K/mm3 Eos # (Auto) 2.0 H (0-0.3) K/mm3 Baso # (Auto) 0.1 (0.0-0.1) K/mm3 Abs Immat Gran (auto) 0.06 H (0.00-0.031) K/mm3 Absolute Neuts (auto) 10.0 H (1.3-6.7) K/mm3 Absolute Nucleated RBC 0.000 (0.0-0.012) K/mm3 Band Neutrophils % 0 (0-6) % Nucleated RBC % 0.0 (0.0-0.2) % Platelet Estimate Adequate (Adequate) Hypochromasia 1+ Anisocytosis 2+ Schistocytes None seen Sodium 138 (137-145) mmol/L Potassium 4.2 (3.4-5.0) mmol/L Chloride 103 (98-107) mmol/L Carbon Dioxide 21 L (22-30) mmol/L Anion Gap 14 H (4-12) mmol/L BUN 23 H (7-17) mg/dL Creatinine 0.78 (0.7-1.0) mg/dL Estim Creat Clear Calc 57 ml/min Estimated GFR > 60 (59 - ) Glucose 152 H (65-110) mg/dL Calcium 9.8 (8.4-10.2) mg/dL Total Bilirubin 0.6 (0.2-1.3) mg/dL AST 25 (14-36) U/L ALT 30 (6-35) U/L Alkaline Phosphatase 75 (38-126) U/L Total Protein 8.0 (6.3-8.2) g/dL Albumin 4.6 (3.5-5.1) g/dL Lipase 58 (23-300) U/L Imaging Data Attestation: I personally reviewed and interpreted this imaging study as follows: My impression: Impressions Chest X-Ray 11/22/24 19:45 IMPRESSION: No focal infiltrate or effusion. Elbow X-Ray 11/22/24 19:46 IMPRESSION: As above. Discharge Plan Discharge Clinical Impression: Bursitis of left elbow Patient Disposition: Home, Self-Care Condition: Stable Instructions: Antibiotic Form, Elbow Bursitis (ED) Additional Instructions: Your x-ray shows some swelling but no fractures or dislocation, your laboratory studies are consistent with bursitis which is an inflammatory process and your elbow. No other concerning findings, you have normal kidney liver function. No fever. We will send you home with a course of anti-inflammatory medications to take for this. Follow-up with your regular doctor this upcoming week. Return if you experience any intractable fevers, stiffness in the joint, difficulty moving her upper arm or any other concerns. Patient Language: Swedish Prescriptions: New acetaminophen [Tylenol Extra Strength] 500 mg tablet 1,000 mg PO TID PRN (Reason: pain) Qty: 30 0RF ketorolac 10 mg tablet 10 mg PO Q8H PRN (Reason: pain) 5 Days Qty: 20 0RF Rx Instructions: maximum total duration of 5 days from all oral, intranasal, or parenteral formulations No Action diltiazem HCl 60 mg capsule,extended release 12 hr 60 mg PO BID Qty: 60 0RF simvastatin 20 mg tablet 20 mg PO DAILY metformin 1,000 mg tablet 1,000 mg PO DAILY metoprolol tartrate 50 mg tablet 50 mg PO DAILY triamterene-hydrochlorothiazid 37.5-25 mg tablet 37.5 tablet PO DAILY omeprazole 20 mg capsule,delayed release(DR/EC) 20 mg PO DAILY duloxetine 60 mg capsule,delayed release(DR/EC) 60 mg PO DAILY Jardiance 10 mg tablet 10 mg PO DAILY Follow-up/Referrals: Jacky,MD Wilson [Primary Care Provider] - Time of Disposition: 20:08
[2024-11-22 19:11] LABS: Basophils Absolute Auto 0.1 K/mm3 (0.0-0.1); Basophils Percent Auto 0.4 % (0.2-1.2); Eosinophils Percent Auto 11.7 % (0-4.4); Hematocrit 43.8 % (37.0-47.0); Immature Granulocyte Absolute 0.06 K/mm3 (0.00-0.031); Immature Granulocyte Percent A 0.4 % (0-0.5); Lymphocytes Percent Auto 21.4 % (18.3-44.2); Mean Corpuscular HGB Conc 29.7 g/dl (32-36); Mean Corpuscular Hemoglobin 23.3 pg (26-34); Mean Corpuscular Volume 78.5 fl (80-100); Mean Platelet Volume 11.1 fl (7.4-10.4); Monocytes Absolute Auto 1.1 K/mm3 (0.1-0.6); Monocytes Percent Auto 6.7 % (2.6-8.5); Neutrophils Percent Auto 59.4 % (45.5-73.1); Platelet Count Result 307 k/mm3 (150-375); Red Blood Count 5.58 M/mm3 (4.2-5.4); Red Cell Distribution Width 19.8 % (11.5-14.5); White Blood Count 16.8 K/mm3 (4.5-10.0)
[2024-11-22 19:23] LABS: Alanine Aminotransferase 30 U/L (6-35); Albumin Level 4.6 g/dL (3.5-5.1); Alkaline Phosphatase 75 U/L (38-126); Anion Gap 14 mmol/L (4-12); Aspartate Amino Transferase 25 U/L (14-36); Bilirubin,Total 0.6 mg/dL (0.2-1.3); Blood Urea Nitrogen 23 mg/dL (7-17); Calcium 9.8 mg/dL (8.4-10.2); Carbon Dioxide 21 mmol/L (22-30); Chloride 103 mmol/L (98-107); Estimated CRCL calculation 57 ml/min; Estimated Glomerular Filt Rate > 60; Glucose 152 mg/dL (65-110); Lipase 58 U/L (23-300); Potassium 4.2 mmol/L (3.4-5.0); Sodium 138 mmol/L (137-145)
[2024-11-22 19:36] LABS: Platelet Estimate Adequate (Adequate)
[2024-11-22 19:37] LABS: Schistocytes None Seen
[2024-11-22 19:38] LABS: Anisocytosis 2+; Band Neutrophils Percent 0 % (0-6); Hypochromasia 1+
[2024-11-22] MEDS: KETOROLAC 30 MG/ML VIAL (*BKC) IM (20:06)
[2024-11-22 20:34] VITALS: BP 130/86; PULSE 82; RESP 16; O2SAT 98
[2024-11-22 20:35] VITALS: BP 130/86; PULSE 82; RESP 16; O2SAT 98
== END 2024-11-22 20:38 | disposition home or self-care (01) ==
PROVIDERS: Emergency Provider Student in an Organized Health Care Education/Training Program; PCP Internal Medicine Infectious Disease
DX: M70.32 Other bursitis of elbow, left elbow (principal); I10 Essential (primary) hypertension; Z79.85 Long-term (current) use of injectable non-insulin antidiabetic drugs
CPT/HCPCS: 36415; 71045; 73070; 80053; 83690; 85025; 96372; 99284; J1885